=== PATIENT | female | born 1960 ===

== ENCOUNTER 2018-01-12 21:23 | Inpatient (IN) ==
--- NOTE | 2018-01-12 21:37 | ED ---
HPI General Stated Complaint: trauma alert/evac Time Seen by Provider: 01/12/18 21:34 Source: patient and EMS Mode of arrival: EMS Limitations: altered mental status (etoh on board) History of Present Illness HPI narrative: patient apparently came back home from meeting, intoxicated and fell...ground level fall. patient found confused with gcs 12, guarding airway, speaking to ems, following commands. Related Data Allergies Allergy/AdvReac Type Severity Reaction Status Date / Time No Allergy Information Allergy Unverified 01/12/18 21:24 Available Review of Systems ROS: all other systems reviewed are negative [facility] History History Provided By: Patient Exam Narrative Exam Narrative: GENERAL: female 59yo per patient report, no apparent distress....cleared off back board without any midline ttp SKIN: Warm and dry. HEAD: Atraumatic. Normocephalic. EYES: Pupils equal and round. No scleral icterus. No injection or drainage. ENT: No nasal bleeding or discharge. Mucous membranes pink and moist. no hemotympanum NECK: Trachea midline. No JVD. c collar in place CARDIOVASCULAR: Regular rate and rhythm. no rubs or gallops RESPIRATORY: No accessory muscle use. Clear to auscultation. Breath sounds equal bilaterally. GASTROINTESTINAL: Abdomen soft, non-tender, nondistended. No rebound or guarding MUSCULOSKELETAL: Extremities without clubbing, cyanosis, or edema. No obvious deformities. NEUROLOGICAL: Awake and alert, gcs 14/15, heavy etoh on breath. No obvious cranial nerve deficits. Motor grossly within normal limits. Five out of 5 muscle strength in the arms and legs. slurred speech. Critical Care Time Critical Care Time: Yes Total Critical Care Time: 30 Attestation: critical care time was [30] minutes. Time to perform other separately billable procedures was not included in the critical care time. My time did not include minutes spent treating any other patients simultaneously or on activities that did not directly contribute to the patient's treatment. The services I provided to this patient were to treat and/or prevent clinically significant deterioration I provided critical care services requiring my management, as noted below: Chart data review, documentation time, medication orders and management, vital sign assessments/reviewing monitor data, ordering and reviewing lab tests, ordering and interpreting/reviewing x-rays and diagnostic studies, care of the patient and discussion of the patient with the admitting physicians. Medical Decision Making MDM Narrative Medical decision making narrative: no leukocytosis, anemia or platelets coag wnl istat wnl intact pelvis ct head CONCLUSION:1. Bilateral sphenoid and left occipital nondisplaced skull base fractures.2. Bifrontal and left temporal parenchymal contusions. Small right frontal, right parietal and left temporal subdural hematomas. No mass effect or midline shift at this time..Electronically signed by: Payam Huerta MD 2017 9:[address] face: CONCLUSION:1. Minimally displaced fracture of the left side of the nasal arch. No otherfacial fracture.2. There is skull base fracturing involving the bilateral sphenoid bones and the left occiput.Electronically signed by: Payam Huerta MD 01/12/2018 9:[address] neck: CONCLUSION:1. Nondisplaced fracture left occipital bone.2. No acute fracture of the cervical spine. No significant canal stenosis. 8 mm nonspecific circumscribed lytic lesion at the C5 vertebral body.Electronically signed by: Ja Bell MD 01/12/2018 9:[address] chest: CONCLUSION:1. Negative for acute traumatic injury to the thorax.Electronically signed by: Ja Bell MD 01/12/2018 9:[address] abd/pelvis CONCLUSION:1. No acute visceral organ injury demonstrated.2. Nonspecific distention of the urinary bladder.3. Enlarged and fatty liver.4. Small hiatal hernia.Electronically signed by: Payam Huerta MD 01/12/2018 9:[address] cabrales and dr mitchell called at 2200 to make aware of admission. dr mitchell spoke at 2208 dr cabrales spoke at 2210 Medical Screen Exam Complete: Yes Emergency Medical Condition: Yes Lab Data Result diagrams: 01/12/18 21:27 01/12/18 21:27 Lab Results 01/12/18 01/12/18 01/12/18 Range/Units 21:27 21:27 21:27 WBC 8.2 (4.0-11.0) th/mm3 RBC 4.06 (4.00-5.30) mil/mm3 Hgb 13.5 (11.6-15.3) gm/dL POC Hgb (Calc) 14.6 (11.6-15.3) g/dL Hct 39.8 (35.0-46.0) % POC Hct 43.0 (35-46.0) % MCV 97.8 (80.0-100.0) fL MCH 33.3 (27.0-34.0) pg MCHC 34.1 (32.0-36.0) % RDW 12.8 (11.6-17.2) % Plt Count 279 (150-450) th/mm3 MPV 6.9 L (7.0-11.0) fL Neut % (Auto) 44.0 (16.0-70.0) % Lymph % (Auto) 39.4 (9.0-44.0) % White % (Auto) 12.9 H (0.0-8.0) % Eos % (Auto) 2.3 (0.0-4.0) % Baso % (Auto) 1.4 (0.0-2.0) % Neut # (Auto) 3.6 (1.8-7.7) th/mm3 Lymph # (Auto) 3.3 (1.0-4.8) th/mm3 White # (Auto) 1.1 H (0.0-0.9) th/mm3 Eos # (Auto) 0.2 (0.0-0.4) th/mm3 Baso # (Auto) 0.1 (0.0-0.2) th/mm3 WBC Differential . Differential Comment Auto diff final PT 10.1 (9.8-11.6) sec INR 1.0 Ratio APTT 25.5 (23.4-31.7) sec POC Sodium 140 (137-144) mmol/L POC Potassium 4.0 (3.6-5.0) mmol/L POC Chloride 99 L (102-111) mmol/L POC BUN 11 (5-21) mg/dL POC Creatinine 1.0 (0.6-1.3) mg/dL POC Glucose 107 (68-110) mg/dL Blood Type 01/12/18 Range/Units 21:27 WBC (4.0-11.0) th/mm3 RBC (4.00-5.30) mil/mm3 Hgb (11.6-15.3) gm/dL POC Hgb (Calc) (11.6-15.3) g/dL Hct (35.0-46.0) % POC Hct (35-46.0) % MCV (80.0-100.0) fL MCH (27.0-34.0) pg MCHC (32.0-36.0) % RDW (11.6-17.2) % Plt Count (150-450) th/mm3 MPV (7.0-11.0) fL Neut % (Auto) (16.0-70.0) % Lymph % (Auto) (9.0-44.0) % White % (Auto) (0.0-8.0) % Eos % (Auto) (0.0-4.0) % Baso % (Auto) (0.0-2.0) % Neut # (Auto) (1.8-7.7) th/mm3 Lymph # (Auto) (1.0-4.8) th/mm3 White # (Auto) (0.0-0.9) th/mm3 Eos # (Auto) (0.0-0.4) th/mm3 Baso # (Auto) (0.0-0.2) th/mm3 WBC Differential Differential Comment PT (9.8-11.6) sec INR Ratio APTT (23.4-31.7) sec POC Sodium (137-144) mmol/L POC Potassium (3.6-5.0) mmol/L POC Chloride (102-111) mmol/L POC BUN (5-21) mg/dL POC Creatinine (0.6-1.3) mg/dL POC Glucose (68-110) mg/dL Blood Type O Positive Imaging Data Radiologist's impression: Chest X-Ray 01/12/18 21:25 CONCLUSION: Consolidated left mid and lower lung which may represent a pulmonary contusion in the proper clinical setting. Possible minimally displaced fracture of the left eighth rib. CT of the chest is pending. Pelvis X-Ray 01/12/18 21:25 CONCLUSION: Intact pelvis. Abdomen/Pelvis CT 01/12/18 21:28 CONCLUSION: 1. No acute visceral organ injury demonstrated. 2. Nonspecific distention of the urinary bladder. 3. Enlarged and fatty liver. 4. Small hiatal hernia. Cervical Spine CT 01/12/18 21:28 CONCLUSION: 1. Nondisplaced fracture left occipital bone. 2. No acute fracture of the cervical spine. No significant canal stenosis. 8 mm nonspecific circumscribed lytic lesion at the C5 vertebral body. Chest CT 01/12/18 21:28 CONCLUSION: 1. Negative for acute traumatic injury to the thorax. Face CT 01/12/18 21:28 CONCLUSION: 1. Minimally displaced fracture of the left side of the nasal arch. No other facial fracture. 2. There is skull base fracturing involving the bilateral sphenoid bones and the left occiput. Head CT 01/12/18 21:28 CONCLUSION: 1. Bilateral sphenoid and left occipital nondisplaced skull base fractures. 2. Bifrontal and left temporal parenchymal contusions. Small right frontal, right parietal and left temporal subdural hematomas. No mass effect or midline shift at this time. . Discharge Plan Discharge Disposition Patient Disposition: ED Admit(ED Internal Use Only) Discharge Condition Condition: Fair Discharge Order Discharge Orders: ED Use Only Admit Order (Routine); Ordered 01/12/18 Ordered By: Carl Mazariegos Discharge Details Diagnosis: Closed skull fracture, Intracranial hemorrhage, Subdural hematoma, acute Physicians Team ED Provider: Carl Mazariegos Primary Care Provider: UNKNOWN, Attending Provider: Sahara Chang Discharge Interventions Interventions: ED Discharge Assessment Last Done: 01/12/18 22:17 Status ED Status: Admitted Patient
--- NOTE | 2018-01-12 21:40 | XR ---
EXAM DATE: 01/12/2018 9:38 PM EST AGE/SEX: 89 years / Female INDICATIONS: Trauma alert; fall. CLINICAL DATA: This is the patient's initial encounter. Patient reports that signs and symptoms have been present for 1 day and indicates a pain score of 0/10. MEDICAL/SURGICAL HISTORY: None. None. COMPARISON: No prior exams available for comparison. FINDINGS: Examination of the pelvis demonstrates no evidence of fracture or dislocation. Bony mineralization i s normal. There is no widening of the sacroiliac joints. No foreign body is identified. CONCLUSION: Intact pelvis. Electronically signed by: Payam Huerta MD 01/12/2018 9:39 PM EST
[2018-01-12 21:42] LABS: Baso # (Auto) 0.1 th/mm3 (0.0-0.2); Baso % (Auto) 1.4 % (0.0-2.0); Eos # (Auto) 0.2 th/mm3 (0.0-0.4); Eos % (Auto) 2.3 % (0.0-4.0); Hematocrit 39.8 % (35.0-46.0); Hemoglobin 13.5 gm/dL (11.6-15.3); Lymph # (Auto) 3.3 th/mm3 (1.0-4.8); Lymph % (Auto) 39.4 % (9.0-44.0); Mean Corpuscular HGB Conc 34.1 % (32.0-36.0); Mean Corpuscular Hemoglobin 33.3 pg (27.0-34.0); Mean Corpuscular Volume 97.8 fL (80.0-100.0); Mean Platelet Volume 6.9 fL (7.0-11.0); Mono # (Auto) 1.1 th/mm3 (0.0-0.9); Mono % (Auto) 12.9 % (0.0-8.0); Neut # (Auto) 3.6 th/mm3 (1.8-7.7); Platelet Count 279 th/mm3 (150-450); Red Blood Count 4.06 mil/mm3 (4.00-5.30); Red Cell Distribution Width 12.8 % (11.6-17.2); White Blood Count 8.2 th/mm3 (4.0-11.0)
--- NOTE | 2018-01-12 21:45 | XR ---
EXAM DATE: 01/12/2018 9:39 PM EST AGE/SEX: 89 years / Female INDICATIONS: Trauma alert; fall. CLINICAL DATA: This is the patient's initial encounter. Patient reports that signs and symptoms have been present for 1 day and indicates a pain score of 0/10. MEDICAL/SURGICAL HISTORY: None. None. COMPARISON: No prior exams available for comparison. FINDINGS: There is nonspecific parenchymal consolidation of the left mid and lower lung. Questionable minimally displaced fracture laterally of the left eighth rib. No perceptible pneumothorax. Cardiomediastinal contours are within normal limits. CONCLUSION: Consolidated left mid and lower lung which may represent a pulmonary contusion in the proper clinical setting. Possible minimally displaced fracture of the left eighth rib. CT of the chest is pending. Electronically signed by: Payam Huerta MD 01/12/2018 9:43 PM EST
--- NOTE | 2018-01-12 21:50 | CT ---
EXAM DATE: 01/12/2018 9:42 PM EST AGE/SEX: 89 years / Female INDICATIONS: Trauma alert, fall. CLINICAL DATA: This is the patient's initial encounter. Patient reports that signs and symptoms have been present for 1 day and indicates a pain score of Nonresponsive. MEDICAL/SURGICAL HISTORY: Non-responsive. Non-responsive. RADIATION DOSE: 56.35 CTDI (mGy) COMPARISON: No prior exams available for comparison. TECHNIQUE: CT of the head without contrast. Using automated exposure control and adjustment of the mA and/or kV according to patient size, radiation dose was kept as low as reasonably achievable to ob tain optimal diagnostic quality images. DICOM format image data is available electronically for revi ew and comparison. FINDINGS: There is nondisplaced fracturing of the skull base involving the bilateral sphenoid and left occiput. Acute parenchymal contusions involve the right and left frontal lobes and also the left temporal lobe . There is a right frontal subdural hematoma that measures approximately 4 mm in maximal thickness an d a left temporal subdural hematoma that measures approximately 3 mm in maximal thickness. A 3 mm max imal thickness right parietal subdural hematoma is present. Small amount of subdural blood is seen in between the leaves of the falx. No mass effect or midline shift at this time. No mass lesion demonstrated. No evidence of an acute is chemic event. There is blood in the bilateral sphenoid air cells. CONCLUSION: 1. Bilateral sphenoid and left occipital nondisplaced skull base fractures. 2. Bifrontal and left temporal parenchymal contusions. Small right frontal, right parietal and left temporal subdural hematomas. No mass effect or midline shift at this time. . Electronically signed by: Payam Huerta MD 01/12/2018 9:49 PM EST
--- NOTE | 2018-01-12 21:53 | CT ---
EXAM DATE: 01/12/2018 9:44 PM EST AGE/SEX: 89 years / Female INDICATIONS: Trauma alert, fall. CLINICAL DATA: This is the patient's initial encounter. Patient reports that signs and symptoms have been present for 1 day and indicates a pain score of Nonresponsive. MEDICAL/SURGICAL HISTORY: Non-responsive. Non-responsive. RADIATION DOSE: 18.00 CTDI (mGy) COMPARISON: No prior exams available for comparison. TECHNIQUE: Contiguous axial images were obtained using helical multirow detector technique. The vol umetric data was post-processed with multiplanar reconstruction in oblique axial, sagittal, and coron al planes. Using automated exposure control and adjustment of the mA and/or kV according to patient s ize, radiation dose was kept as low as reasonably achievable to obtain optimal diagnostic quality karen ges. DICOM format image data is available electronically for review and comparison. FINDINGS: There is a nondisplaced fracture of the left occipital bone. There is opacification of the sphenoid s inus probably from hemorrhage. No acute fracture within the cervical spine. Slight reversal of normal cervical lordosis. No canal or significant foraminal stenosis. Nonspecific 8 mm lytic lesion on the left side of the vertebral body at C5. CONCLUSION: 1. Nondisplaced fracture left occipital bone. 2. No acute fracture of the cervical spine. No significant canal stenosis. 8 mm nonspecific circumsc ribed lytic lesion at the C5 vertebral body. Electronically signed by: Ja Bell MD 01/12/2018 9:52 PM EST
[2018-01-12 21:55] LABS: Activated Partial Thrombo Time 25.5 sec (23.4-31.7); Prothrombin Time 10.1 sec (9.8-11.6)
--- NOTE | 2018-01-12 21:55 | CT ---
EXAM DATE: 01/12/2018 9:45 PM EST AGE/SEX: 89 years / Female INDICATIONS: Trauma alert, fall. CLINICAL DATA: This is the patient's initial encounter. Patient reports that signs and symptoms have been present for 1 day and indicates a pain score of Nonresponsive. MEDICAL/SURGICAL HISTORY: Non-responsive. Non-responsive. RADIATION DOSE: 21.96 CTDI (mGy) COMPARISON: No prior exams available for comparison. TECHNIQUE: Contiguous images in the axial and coronal planes were obtained using helical multirow de tector technique. Using automated exposure control and adjustment of the mA and/or kV according to p atient size, radiation dose was kept as low as reasonably achievable to obtain optimal diagnostic alexi lity images. DICOM format image data is available electronically for review and comparison. FINDINGS: Nondisplaced skull base fracture involves the bilateral sphenoid bones. There is associated small pne umocephaly, including around the bilateral internal carotid arteries. Small amount of blood is also s een in the left maxillary air cell. A nondisplaced fracture also involves the left occiput. There is a fracture of the left side of the nasal arch with mild rightward displacement, series 304 i mage 38. CONCLUSION: 1. Minimally displaced fracture of the left side of the nasal arch. No other facial fracture. 2. There is skull base fracturing involving the bilateral sphenoid bones and the left occiput. Electronically signed by: Payam Huerta MD 01/12/2018 9:54 PM EST
--- NOTE | 2018-01-12 21:57 | CT ---
EXAM DATE: 01/12/2018 9:50 PM EST AGE/SEX: 89 years / Female INDICATIONS: Trauma, fall. CLINICAL DATA: This is the patient's initial encounter. Patient reports that signs and symptoms have been present for 1 day and indicates a pain score of Nonresponsive. MEDICAL/SURGICAL HISTORY: Non-responsive. Non-responsive. RADIATION DOSE: 6.30 CTDI (mGy) ; Combined studies COMPARISON: No prior exams available for comparison. TECHNIQUE: Multiple contiguous axial images were obtained through the chest during bolus infusion of 100 ml Omnipaque 350 (iohexol) nonionic water-soluble contrast as a cumulative dose for multiple ex ams. Images were obtained in suspended respiration using multiple row detector helical technique. Using automated exposure control and adjustment of the mA and/or kV according to patient size, radiat ion dose was kept as low as reasonably achievable to obtain optimal diagnostic quality images. DICOM format image data is available electronically for review and comparison. FINDINGS: There is no pleural or pericardial effusion. No pneumothorax. There is no mediastinal hematoma. No ad enopathy. Bilateral breast augmentation noted. No acute bony abnormalities identified. See abdomen CT for findings below the diaphragms. CONCLUSION: 1. Negative for acute traumatic injury to the thorax. Electronically signed by: Ja Bell MD 01/12/2018 9:55 PM EST
--- NOTE | 2018-01-12 21:58 | CT ---
EXAM DATE: 01/12/2018 9:51 PM EST AGE/SEX: 89 years / Female INDICATIONS: Trauma, fall. CLINICAL DATA: This is the patient's initial encounter. Patient reports that signs and symptoms have been present for 1 day and indicates a pain score of Nonresponsive. MEDICAL/SURGICAL HISTORY: Non-responsive. Non-responsive. ORAL CONTRAST: No oral contrast ingested. RADIATION DOSE: 6.30 CTDI (mGy) ; Combined studies COMPARISON: No prior exams available for comparison. TECHNIQUE: Multiple contiguous axial images were obtained through the abdomen and pelvis following b olus infusion of 100 ml Omnipaque 350 (iohexol) nonionic water-soluble contrast as a cumulative dos e for multiple exams. No oral contrast ingested. Using automated exposure control and adjustment of the mA and/or kV according to patient size, radiation dose was kept as low as reasonably achievable t o obtain optimal diagnostic quality images. DICOM format image data is available electronically for review and comparison. FINDINGS: Lower Lungs: The visualized lower lungs are clear. Liver: The liver has a homogeneous fatty density without space-occupying lesion. 23.5 cm craniocaudal There is no dilation of the biliary tree. Spleen: Homogeneous density without enlargement. Pancreas: Unremarkable without mass or calcification. Kidneys: Normal in size and shape. No evidence of mass or hydronephrosis. Adrenal Glands: Unremarkable. Aorta: The aorta and proximal iliac vessels are grossly unremarkable without aneurysmal dilation. Bowel/Mesentery: The bowel loops are grossly unremarkable. The cecum and sigmoid colon have a normal configuration. There is a small hiatal hernia. Abdominal Wall: Intact. Retroperitoneum: No evidence of adenopathy in the retrocrural, para-aortic, or deep pelvic regions. Bladder: Distended. No focal abnormality. Reproductive Organs: No abnormal masses or calcifications seen. Inguinal: The inguinal region is unremarkable without evidence of adenopathy. Bony Structures: No acute abnormality seen of the visualized osseous structures. Post Contrast: No abnormal areas of enhancement seen. CONCLUSION: 1. No acute visceral organ injury demonstrated. 2. Nonspecific distention of the urinary bladder. 3. Enlarged and fatty liver. 4. Small hiatal hernia. Electronically signed by: Payam Huerta MD 01/12/2018 9:56 PM EST
[2018-01-12 22:08] LABS: Carbon Dioxide 28.5 meq/L (21.0-32.0); Potassium 3.9 meq/L (3.5-5.1)
--- NOTE | 2018-01-12 22:15 | P.CONNS ---
History of Present Illness Service: neurosurgery Consult date: 01/12/18 Requesting Physician: Carl Mazariegos Reason for Consult: Trauma alert Primary Care Provider: UNKNOWN Chief Complaint: trama, headaches History of Present Illness: This is an adult female brought to [facility] as a trauma alert as Brooke Oliva with a severe head injury. Apparently she came back home from Alcoholics Anonymous meeting when she became intoxicated and fell down to the ground from the standing position. Positive LOC. No seizure activity. No tongue bitting. No incontinence of stool or urine The patient was found confused on the ground, with a [place] scale 11-12, slurring speech, but following commands. She was transferred to our institution as priority 2 trauma alert on the spinal board with C-collar in place. On arrival, the patient was awake, alert and oriented, clearly drunk, intoxicated. Neurosurgery consultation was requested Review of Systems All other systems reviewed negative except as stated in HPI PMFSH - History History Provided By: Patient - Medical History Medical History: Medical History (Last Reviewed 01/22/18 @ 09:45 by Nasim Fu MD) History of MRSA infection Onset Date: ~01/12/18 - Family History Family History: Family History (Last Reviewed 01/22/18 @ 09:45 by Nasim Fu MD) Other Alzheimer disease Medications and Allergies Allergies Allergy/AdvReac Type Severity Reaction Status Date / Time No Known Allergies Allergy Verified 01/12/18 22:46 Home Medications Medication Instructions Recorded Confirmed Type Effexor XR DAILY 01/13/18 History clonazepam 01/13/18 History escitalopram oxalate BID 01/13/18 History Exam Narrative: The patient is alert, awake and oriented to time, place and person. Speech is fluent. Cranial nerve examination demonstrates the pupils to be equal, round, and reactive to light. Extra-ocular movements are intact with normal convergence. Facial motor and sensory function are normal and symmetrical. Gross hearing is intact, bilaterally, to finger rub. The uvula is midline and elevates symmetrically with the soft palate. Sternocleidomastoid and deltoid muscles have normal and symmetrical strength. Other cranial nerves are intact. Neck is soft and supple. Cervical spine has a full range of motion in anterior flexion, extension, lateral bending, and rotation without pain. There is no tenderness to palpation to the spinous processes or paraspinal muscles. Muscle testing reveals normal bulk and tone overall without rigidity, spasticity , fasciculations, or atrophy. Muscle strength is 5/5 in all muscle groups of both upper extremities including deltoid, biceps, triceps, brachioradialis, wrist extension and tile burner. In the lower extremities, strength is 5/5 in both iliopsoas, quadriceps, hamstrings, plantar flexion, dorsiflexion, and extensor hallucis longus. Sensory examination is intact to light touch and sharp/dull discrimination in both the upper and lower extremities, symmetrically. Deep tendon reflexes are 2+ and symmetrical in the biceps, triceps, and brachioradialis, bilaterally, in the upper extremities. In the lower extremities , the patellar and Achilles are 2+, bilaterally. There is a bilateral plantar flexion response. Hoffmanns sign is negative. There is no clonus or other abnormal reflexes noted. Cerebellar examination is intact to [id number] test, rapid rhythmic alternating motion. No dysmetria, dysdiadochokinesia, truncal ataxia, or tremor noted. Lungs: clear Heart: Regular rhythm and rate Skin: warm and dry Results - Laboratory Findings CBC and BMP: 01/19/18 02:39 01/22/18 05:50 Abnormal lab findings: Abnormal Labs 01/12/18 01/12/18 21:27 21:27 MPV 6.9 L [place] % (Auto) 12.9 H [place] # (Auto) 1.1 H POC Chloride 99 L Assessment and Plan - Plan I have reviewed the clinical and radiological findings Chest X-Ray 01/12/18 21:25 CONCLUSION: Consolidated left mid and lower lung which may represent a pulmonary contusion in the proper clinical setting. Possible minimally displaced fracture of the left eighth rib. CT of the chest is pending. Pelvis X-Ray 01/12/18 21:25 CONCLUSION: Intact pelvis. Abdomen/Pelvis CT 01/12/18 21:28 CONCLUSION: 1. No acute visceral organ injury demonstrated. 2. Nonspecific distention of the urinary bladder. 3. Enlarged and fatty liver. 4. Small hiatal hernia. Cervical Spine CT 01/12/18 21:28 CONCLUSION: 1. Nondisplaced fracture left occipital bone. 2. No acute fracture of the cervical spine. No significant canal stenosis. 8 mm nonspecific circumscribed lytic lesion at the C5 vertebral body. Chest CT 01/12/18 21:28 CONCLUSION: 1. Negative for acute traumatic injury to the thorax. Face CT 01/12/18 21:28 CONCLUSION: 1. Minimally displaced fracture of the left side of the nasal arch. No other facial fracture. 2. There is skull base fracturing involving the bilateral sphenoid bones and the left occiput. Head CT 01/12/18 21:28 CONCLUSION: 1. Bilateral sphenoid and left occipital nondisplaced skull base fractures. 2. Bifrontal and left temporal parenchymal contusions. Small right frontal, right parietal and left temporal subdural hematomas. No mass effect or midline shift at this time. . Neuro: neuro checks in a serial fashion. She is at risk for deterioration. Folow up CT in AM Cerebral concusion. I have educated the patient on the signs and symptoms of a post concussive head disorder including continued daily headaches, mild nausea, possible lightheadedness, short term memory deficit, shortened attention span and even episodes of loss of energy. I also advised the patient on the importance of avoiding another head injury as this could result in further neurological deficit, possible paralysis or even . The patient is aware of the consequences of a further traumatic brain injury. Pulmonary: aggressive pulmonary toilette, nasotracheal suction, and breathing treatments with nebulizers. ETOH abuse. She is at risk for withdraw. On protocol Benzodiazepines. Thiamine, Folic acid, MVI Daily PT and OT Renal: monitor closely urine output, BUN and creatinine Endocrine: Monitor serial Acu checks and SSI as needed in detail ID continue to monitor for signs of infection Protonix for stress ulcer prophylaxis Harsh hose and SCD's for DVT prophylaxis Further recommendations will be provided depending on the patient's clinical evaluation and follow up studies. Discussed with Dr Luna
[2018-01-13 00:01] LABS: Amphetamine Screen,Urine Neg (Neg); Barbiturate Screen,Urine Neg (Neg); Cannabinoid Screen,Urine Neg (Neg); Cocaine Screen,Urine Neg (Neg)
[2018-01-13 00:03] LABS: Opiate Screen,Urine Neg (Neg)
[2018-01-13] MEDS: Sod Chloride 0.9% Inj 1,000 ML IV.CONT SCH ×6 (00:42→23:56)
[2018-01-13] MEDS ORDERED: Acetaminophen 325 MG Tablet PO PRN (06:10)
--- NOTE | 2018-01-13 07:12 | MH ---
cc: Sahara Chang MD DATE OF ADMISSION: 01/12/2018 ADMITTING PHYSICIAN: Dr. Sahara Chang, trauma surgery. DIAGNOSIS: Traumatic brain injury. HISTORY OF PRESENT ILLNESS: This female is coming back from Alcoholics Anonymous meeting when she fell intoxicated from the standing position. The patient was found confused with about a [place] scale 11-12, slurring speech and following commands. She was transferred to our institution as priority 2 trauma alert on the spinal board with C-collar in place. On arrival, the patient is awake, alert and oriented, clearly drunk. PAST MEDICAL HISTORY: Alcoholism and tobacco abuse. I do not have any other history. PHYSICAL EXAMINATION: GENERAL: Reveals a 59-year-old female. HEENT: Normocephalic. Trauma to the head consistent with some bruising of the face. Pupils equal, reactive. Extraocular muscles intact. No hemotympanum developing left tse sign already around the mastoid. No raccoon's eyes. Some bruising over the face may be from some other injury, older one. NECK: Bilateral carotid pulses. No bruits. CHEST: Clear bilateral breath sounds. No signs of trauma to the chest. HEART: Regular rhythm. Hemodynamically, the patient has tachycardia. ABDOMEN: Soft. No rebound, no guarding, no mass. No signs of trauma to the abdomen. EXTREMITIES: Normal bilateral femoral, popliteal, dorsalis pedis and posterior tibial pulses, bilateral brachial and radial pulses. NEUROLOGIC: The patient is awake, alert. [place] coma scale at this point is 15. She reeks of alcohol. Motor bilateral equal. Deep tendon reflexes normal. No pathologic reflexes. Speech is still somewhat slurred. IMPRESSION: The patient was worked up according to trauma principles, underwent full diagnostic clinical workup. Initial injuries detected severe brain injury consisting of bifrontal and left temporal contusions and bifrontal subdural hematomas, basal skull fracture extending from bilateral sphenoid to left occipital area and nasal fracture. The patient will be admitted to ICU for observation. Appropriate services consulted. MD DARCIE Garay/aaron , 05:25 AM , 05:32 AM
--- NOTE | 2018-01-13 08:18 | P.NPEVAL ---
Patient History - Record/History Review Reason for Referral: The patient is a 89 year old presumed right handed woman status post traumatic brain injury secondary to a fall on 01/12/2018. The patient was apparently coming home from an AA meeting, intoxicated, and fell . . . ground level fall, and was confused at the scene with a GCS of 12. Head CT showed bifrontal and left temporal parenchymal contusions and small right frontal and parietal na dleft temporal SDH. Her ETOH level was 323. She is referred for baseline neurobehavioral status examination per trauma protocol to assess cognitive, behavioral and emotional aspects of the injury and to provide treatment recommendations. [facility] - History History Provided By: Significant Other - Medical History Medical History: Medical History (Last Reviewed 01/13/18 @ 09:39 by Ayaka Sánchez) History of MRSA infection Onset Date: ~01/12/18 - Tobacco History Second Hand Smoke Exposure: No Smoking Status: Never smoker - Alcohol History How Often Do You Have a Drink Containing Alcohol: 4 or more times a week - Substance Use History Substance History: No History of Abuse - Immunization History Tetanus Immunization: Unable to Assess Hx Influenza Vaccine This Season: No Medications Active Medications Acetaminophen (Tylenol) 650 mg PO Q6H PRN PRN Reason: PAIN 1-10 AND/OR FEVER >101F Bacitracin (Baciguent Oint) 1 applicatio TOPICAL BID DONTE Chlorhexidine Gluconate (Chlorhexidine 2% Cloth) 3 pack TOPICAL DAILY@0400 DONTE Stop: 01/19/18 03:59 Chlorhexidine Gluconate (Chlorhexidine 2% Cloth) 3 pack TOPICAL DAILY@0400 PRN PRN Reason: Extra cloth needed Stop: 01/19/18 03:59 Enalaprilat (Vasotec Inj) 1.25 mg IV.PUSH Q8H PRN PRN Reason: Blood pressure 180/95 Haloperidol Lactate (Haldol Inj) 4 mg IV.PUSH Q4H PRN PRN Reason: AGITATION Sodium Chloride (Ns Inj) 1,000 mls @ 100 mls/hr IV.CONT .Q10H [facility] Last Admin: 01/13/18 00:42 Dose: 100 mls/hr Levetiracetam 500 mg/ Sodium (Chloride) 105 mls @ 400 mls/hr IV.SIG Q12H [facility] Last Admin: 01/13/18 06:35 Dose: 400 mls/hr Sodium Chloride (Ns Inj) 1,000 mls @ 100 mls/hr IV.CONT .Q10H DONTE Last Admin: 01/13/18 06:39 Dose: Not Given Multivitamins 10 ml/ Thiamine HCl 100 mg/ Folic Acid 1 mg/Sodium Chloride 511.2 mls @ 125 mls/hr IV.SIG Q24H DONTE Stop: 01/15/18 12:06 Lactulose (Lactulose Liq) 30 ml PO DAILY PRN PRN Reason: CONSTIPATION Ondansetron HCl (Zofran Inj) 4 mg IV.PUSH Q6H PRN PRN Reason: FOR NAUSEA AND VOMITING Last Admin: 01/13/18 05:59 Dose: 4 mg Pantoprazole Sodium (Protonix Inj) 40 mg IV.PUSH DAILY DONTE Senna/Docusate Sodium (Meri-Colace) 1 tab PO BID DONTE Sodium Chloride (Ns Flush) 2 ml IV.FLUSH UNSCH PRN PRN Reason: FLUSH AFTER USING IV ACCESS Mental Status Assessment - Mental Status Orientation: oriented to: Self, Place, Time, Situation Mental Status: Variable: Thought processing, Language/interactions, Attention, Learning/memory, Problem-solving Absent: Hallucinations, Delusions Adjustment/Coping Assessment - Observation In terms of emotional functioning, the patient demonstrated challenges. This patient demonstrated no signs of agitation, impulsivity or disinhibition, nor was there remarkable evidence of a formal thought disorder or psychosis. There was no evidence of depression or anxiety. Thought content was free from suicidal, homicidal or paranoid ideation, and thought processes were logical but bradyphrenic. The patients mood was dysthymic, and her affect was stable and appropriate. The patient appears to possess improving insight and awareness into their situation and within the limits of this brief evaluation, improving judgment. - Goals/Team Members LTG Status: Deferred STG Status: Deferred Team Members: Neuropsychologist Behavior - Observation Behaviorally, the patient demonstrated no signs of agitation, impulsivity or disinhibition. There was no remarkable evidence of a formal thought disorder or psychosis. - Goals LTG Status: Deferred STG Status: Deferred - Team Members Team Members: Neuropsychologist Diagnosis/Discharge Plan - Diagnosis (1) Major neurocognitive disorder as late effect of traumatic brain injury with behavioral disturbance Status: Acute (2) Alcohol dependence in controlled environment Status: Acute Impression: Unknown age woman s/p TBI 2T fall on 01/12/2018, and complicated by alcohol dependence, in controlled environment. [facility] Level: Level Maximizing Acute Care Outcome: It is recommended that the patient be monitored for emergent behavioral impulsivity as the medical condition evolves. This patients neuropathological challenges may limit rehabilitation potential going forward, and these challenges will require specialized therapeutic skills to maximize outcome. At this point in the recovery process, the patient does have cognitive capacity as the patient is able to understand a situation and its likely consequences, and she is able to manipulate information rationally. Cognitive capacity will be assessed throughout the recovery process. - Discharge Planning Anticipated Problems: Ongoing areas of concern will include behavioral impulsivity, lack of insight and judgment, which is expected to improve with time and treatment. Treatment Plan: This clinician will continue to follow with you throughout the course of this patients critical care treatment, and I will be available to meet with the patients family/support system to facilitate their understanding and the ongoing care of their family member. The goals of neuropsychological intervention shall be both educational and supportive to the family/support system as is deemed clinically appropriate. Thank you for the opportunity to assist in this patients care. Jose Araujo, Ph.D., ABPP Board Certified in Clinical Neuropsychology [place] [employer] [place] Licensed Psychologist #[id number]
[2018-01-13 08:38] LABS: Baso % (Auto) 0.3 % (0.0-2.0); Hematocrit 36.3 % (35.0-46.0); Hemoglobin 12.4 gm/dL (11.6-15.3); Lymph # (Auto) 1.2 th/mm3 (1.0-4.8); Lymph % (Auto) 9.5 % (9.0-44.0); Mean Corpuscular Hemoglobin 33.2 pg (27.0-34.0); Mean Corpuscular Volume 97.5 fL (80.0-100.0); Mean Platelet Volume 6.9 fL (7.0-11.0); Mono # (Auto) 0.9 th/mm3 (0.0-0.9); Mono % (Auto) 7.7 % (0.0-8.0); Neut % (Auto) 82.5 % (16.0-70.0); Platelet Count 262 th/mm3 (150-450); Red Blood Count 3.72 mil/mm3 (4.00-5.30); Red Cell Distribution Width 12.5 % (11.6-17.2); White Blood Count 12.2 th/mm3 (4.0-11.0)
[2018-01-13] MEDS: Multivitamin Inj 10 ML, Thiamine Inj 100 MG, Folic Acid Inj 1 MG in Sodium Chlor 0.9% I... IV.SIG SCH (08:44)
[2018-01-13] MEDS: Senna/Docusate Sodium 8.6/50 MG Tablet PO SCH ×2 (08:45→20:13)
[2018-01-13] MEDS: Pantoprazole Inj 40 MG Vial IV.PUSH SCH (08:45)
[2018-01-13 09:03] LABS: Anion Gap 10 meq/L (5-15); Blood Urea Nitrogen 10 mg/dL (7-18); Carbon Dioxide 25.2 meq/L (21.0-32.0); Chloride 98 meq/L (98-107); Glomerular Filtration Rate Greater Than 89 mL/min (>89); Glucose,Random 107 mg/dL (74-106); Potassium 3.7 meq/L (3.5-5.1); Sodium 133 meq/L (136-145)
--- NOTE | 2018-01-13 10:48 | MB ---
cc: Salazar Oliveira DDS DATE: 01/13/2018 AKA: [id number] REASON FOR CONSULTATION: Asked to evaluate a lady who came in as a fall. I guess she was inebriated, leaving a meeting, sustaining a blow to the face, which they diagnosed as a left nasal fracture per CT scan. On evaluation, the CT it is completely nondisplaced, appears to possibly be even an old fracture of her left nasal area, which is nondisplaced, requires no surgical intervention and no followup. The rest of her facial CT is normal. Her orbital bones are stable. Maxilla and mandible are both stable, does not require any surgical intervention nor followup. MAYDA Cordoba/an , 09:03 AM , 09:08 AM
[2018-01-13] MEDS: Sodium Chloride 1 GM Tablet PO SCH ×2 (11:12→17:04)
[2018-01-13] MEDS: levETIRAcetam 500 MG Tablet PO SCH ×2 (11:12→20:13)
[2018-01-13] MEDS: Methocarbamol 500 MG Tablet PO SCH ×3 (11:12→22:03)
--- NOTE | 2018-01-13 12:44 | CT ---
EXAM DATE: 01/13/2018 12:22 PM EST AGE/SEX: 57 years / Female INDICATIONS: Head injury. Fall yesterday. CLINICAL DATA: This is the patient's initial encounter. Patient reports that signs and symptoms have been present for 1 day and indicates a pain score of 4/10. MEDICAL/SURGICAL HISTORY: None. None. RADIATION DOSE: 66.34 CTDI (mGy) COMPARISON: [facility] [place], CT HEAD W/O CONTRAST, 01/12/2018. . TECHNIQUE: CT of the head without contrast. Using automated exposure control and adjustment of the mA and/or kV according to patient size, radiation dose was kept as low as reasonably achievable to ob tain optimal diagnostic quality images. DICOM format image data is available electronically for revi ew and comparison. FINDINGS: There is an acute right hemispheric subdural hematoma that has increased in size from yesterday's exa mination. In the right frontal region of previously measured a maximal thickness of 4 mm compared to 9 mm currently. Additionally, it now extends over the temporal lobe in the right middle cranial fossa and extends more posteriorly over the right frontal lobe and parietal region. Some of the subdural b lood products also extend into the anterior interhemispheric fissure. Some of the blood products in t he right frontal lobe may be intra-axial and represent a hemorrhagic contusion. The left frontal lobe convexity hemorrhagic contusion has increased in size, currently measuring 9 mm. The increased right -sided blood products result in new 2 mm of [id number] midline shift. Ventricles are normal in siz e. There are stable trace subarachnoid blood products in the left middle cranial fossa. There is a stable nondisplaced left occipital bone fracture and there are stable blood products withi n the sphenoid sinus and there is a small air-fluid level in the left maxillary sinus. CONCLUSION: 1. Significant increased volume of the right subdural hematoma now resulting in mass effect with new 2 mm of [id number] midline shift. This finding was telephoned to the patient's nurse. 2. Increased size of the bifrontal hemorrhagic contusions. 3. Nondisplaced left occipital bone fracture is stable. . Electronically signed by: Payam Owen MD 01/13/2018 12:42 PM EST
--- NOTE | 2018-01-13 13:42 | MR ---
EXAM DATE: 01/13/2018 1:06 PM EST AGE/SEX: 57 years / Female INDICATIONS: Trauma. CLINICAL DATA: This is the patient's initial encounter. Patient reports that signs and symptoms have been present for 2 days and indicates a pain score of 5/10. MEDICAL/SURGICAL HISTORY: None. . Breast implants. COMPARISON: [facility] [place] CERVICAL SPINE W/O CONTRAST, 01/12/2018. . TECHNIQUE: Multiplanar, multisequence MRI examination of the cervical spine was performed without co ntrast. FINDINGS: Vertebrae: Bone marrow signal is within normal limits. No acute abnormality. There is a T1 hyperint ense fat-containing lesion in the C5 vertebral body measuring approximately 5 mm, characteristic of a hemangioma. Alignment: No anterolisthesis or retrolisthesis. There is a mild cervical kyphosis centered at the C 4-C5 level. Cord: Normal signal. Post Fossa: The cerebellar tonsils are normal in position. The craniocervical junction and C1-C2 level demonstrate no acute abnormality. C2-C3: No disc herniation, canal stenosis, or neural foraminal stenosis. There is mild right facet a rthrosis. C3-C4: There is a small central disc protrusion which slightly abuts the anterior spinal cord. Howev er, no spinal canal stenosis or neural foraminal narrowing is present. C4-C5: Decreased disc height with endplate osteophytes anteriorly and diffuse posterior disc osteoph yte complex which abuts the anterior spinal cord. There is no spinal canal stenosis. Small bilateral uncovertebral osteophytes are present minimally narrowing the neural foramina bilaterally. C5-C6: No disc herniation, canal stenosis, or neural foraminal stenosis. C6-C7: No disc herniation, canal stenosis, or neural foraminal stenosis. C7-T1: No disc herniation, canal stenosis, or neural foraminal stenosis. Other: There is opacification of the sphenoid sinus. CONCLUSION: 1. No acute cervical spine abnormality is identified. 2. Mild cervical kyphosis secondary to the degenerative disc disease at C4-C5. At this level there i s posterior disc osteophyte complex and bilateral uncovertebral osteophyte mildly narrowing the neura l foramina bilaterally. Electronically signed by: Payam Owen MD 01/13/2018 1:40 PM EST
--- NOTE | 2018-01-13 13:46 | P.PNCC ---
Subjective Brief History: 57-year-old woman with history of chronic EtOH abuse status post fall resulted in a TBI with subdural subarachnoidal bleeding 24 Hour Review/Hospital Course: 01/13 GCS is 15 patient complains of headache She has also midline neck tenderness and will obtain an MRI Repeat CT scan of the head shows increasing size of her subdural hematoma, I discussed this with the neurosurgeon for now will patient remain on observation n.p.o. status-besides medications He is on Keppra, she is hemodynamically normal ,OMFS surgeons input appreciated patient is nonsurgical Objective Vital Signs / I&O: Vital Signs 01/12/18 22:16 01/12/18 22:21 01/12/18 22:30 Temperature 98.3 F Pulse Rate 77 Respiratory Rate 23 Blood Pressure 158/99 H 150/89 H Pulse Oximetry 64 L 94 L 94 L 01/12/18 23:00 01/12/18 23:11 01/13/18 00:00 Temperature 98.6 F Pulse Rate 81 76 82 Respiratory Rate 24 24 22 Blood Pressure 112/71 Pulse Oximetry 94 L 95 98 01/13/18 00:09 01/13/18 01:00 01/13/18 01:09 Temperature Pulse Rate 78 83 82 Respiratory Rate 22 23 23 Blood Pressure 133/77 117/71 Pulse Oximetry 98 98 98 01/13/18 02:00 01/13/18 02:09 01/13/18 03:00 Temperature Pulse Rate 95 H 89 78 Respiratory Rate 27 H 22 21 Blood Pressure 113/75 Pulse Oximetry 90 L 95 97 01/13/18 03:09 01/13/18 04:00 01/13/18 04:09 Temperature 98.9 F Pulse Rate 80 89 95 H Respiratory Rate 21 23 29 H Blood Pressure 119/71 147/89 H Pulse Oximetry 97 98 97 01/13/18 05:00 01/13/18 05:09 01/13/18 06:00 Temperature Pulse Rate 82 82 87 Respiratory Rate 23 24 20 Blood Pressure 132/85 Pulse Oximetry 97 96 94 L 01/13/18 06:09 01/13/18 08:00 01/13/18 10:16 Temperature 100.6 F H Pulse Rate 86 89 Respiratory Rate 21 15 16 Blood Pressure 131/82 131/82 Pulse Oximetry 95 98 Intake & Output 01/12/18 01/13/18 01/13/18 18:59 06:59 18:59 Intake Total 955 / 955 Output Total 1999 450 / 450 Balance -1999 505 / 505 Weight 62.3 kg Intake: IV 955 / 955 NS Inj 1,000 ML @ 100 mls/hr IV 850 / 850 .CONT .Q10H [facility] Rx#:[id number] Keppra Inj 500 MG In NS Inj 100 105 / 105 ML @ 400 mls/hr IV.SIG Q12H [facility] Rx#:[id number] Output: Urine Amount (Catheter) 1999 450 / 450 Indwelling Urethral Catheter 1999 450 / 450 Other: Weight On Admission 62.3 kg Result Diagrams: 01/13/18 07:54 01/13/18 07:54 Imaging: Impressions Chest X-Ray 01/12/18 21:25 CONCLUSION: Consolidated left mid and lower lung which may represent a pulmonary contusion in the proper clinical setting. Possible minimally displaced fracture of the left eighth rib. CT of the chest is pending. Pelvis X-Ray 01/12/18 21:25 CONCLUSION: Intact pelvis. Abdomen/Pelvis CT 01/12/18 21:28 CONCLUSION: 1. No acute visceral organ injury demonstrated. 2. Nonspecific distention of the urinary bladder. 3. Enlarged and fatty liver. 4. Small hiatal hernia. Cervical Spine CT 01/12/18 21:28 CONCLUSION: 1. Nondisplaced fracture left occipital bone. 2. No acute fracture of the cervical spine. No significant canal stenosis. 8 mm nonspecific circumscribed lytic lesion at the C5 vertebral body. Chest CT 01/12/18 21:28 CONCLUSION: 1. Negative for acute traumatic injury to the thorax. Face CT 01/12/18 21:28 CONCLUSION: 1. Minimally displaced fracture of the left side of the nasal arch. No other facial fracture. 2. There is skull base fracturing involving the bilateral sphenoid bones and the left occiput. Head CT 01/12/18 21:28 CONCLUSION: 1. Bilateral sphenoid and left occipital nondisplaced skull base fractures. 2. Bifrontal and left temporal parenchymal contusions. Small right frontal, right parietal and left temporal subdural hematomas. No mass effect or midline shift at this time. . Head CT 01/13/18 00:00 CONCLUSION: 1. Significant increased volume of the right subdural hematoma now resulting in mass effect with new 2 mm of [id number] midline shift. This finding was telephoned to the patient's nurse. 2. Increased size of the bifrontal hemorrhagic contusions. 3. Nondisplaced left occipital bone fracture is stable. . 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
--- NOTE | 2018-01-13 18:29 | P.PNNS ---
Subjective Interval history: 01/13 GCS is 15 patient complains of headache She has also midline neck tenderness and will obtain an MRI Repeat CT scan of the head shows increasing size of her subdural hematoma, I discussed this with the neurosurgeon for now will patient remain on observation n.p.o. status-besides medications. She is on Keppra, she is hemodynamically normal ,OMFS surgeons input appreciated Physical Exam Vital signs: Vital Signs 01/12/18 22:16 01/12/18 22:21 01/12/18 22:30 Temperature 98.3 F Pulse Rate 77 Respiratory Rate 23 Blood Pressure 158/99 H 150/89 H Pulse Oximetry 64 L 94 L 94 L 01/12/18 23:00 01/12/18 23:11 01/13/18 00:00 Temperature 98.6 F Pulse Rate 81 76 82 Respiratory Rate 24 24 22 Blood Pressure 112/71 Pulse Oximetry 94 L 95 98 01/13/18 00:09 01/13/18 01:00 01/13/18 01:09 Temperature Pulse Rate 78 83 82 Respiratory Rate 22 23 23 Blood Pressure 133/77 117/71 Pulse Oximetry 98 98 98 01/13/18 02:00 01/13/18 02:09 01/13/18 03:00 Temperature Pulse Rate 95 H 89 78 Respiratory Rate 27 H 22 21 Blood Pressure 113/75 Pulse Oximetry 90 L 95 97 01/13/18 03:09 01/13/18 04:00 01/13/18 04:09 Temperature 98.9 F Pulse Rate 80 89 95 H Respiratory Rate 21 23 29 H Blood Pressure 119/71 147/89 H Pulse Oximetry 97 98 97 01/13/18 05:00 01/13/18 05:09 01/13/18 06:00 Temperature Pulse Rate 82 82 87 Respiratory Rate 23 24 20 Blood Pressure 132/85 Pulse Oximetry 97 96 94 L 01/13/18 06:09 01/13/18 07:00 01/13/18 07:09 Temperature Pulse Rate 86 80 80 Respiratory Rate 21 18 19 Blood Pressure 131/82 146/89 H Pulse Oximetry 95 97 98 01/13/18 08:00 01/13/18 08:09 01/13/18 09:00 Temperature 98.6 F Pulse Rate 86 84 90 Respiratory Rate 20 18 26 H Blood Pressure 145/87 H 145/87 H Pulse Oximetry 95 96 95 01/13/18 09:09 01/13/18 10:00 01/13/18 10:09 Temperature Pulse Rate 83 84 82 Respiratory Rate 22 20 20 Blood Pressure 153/95 H 156/86 H Pulse Oximetry 97 98 98 01/13/18 10:16 01/13/18 11:11 01/13/18 11:47 Temperature Pulse Rate 79 Respiratory Rate 16 15 Blood Pressure 133/85 Pulse Oximetry 96 98 01/13/18 12:07 01/13/18 12:09 01/13/18 13:11 Temperature 98.5 F Pulse Rate 81 81 Respiratory Rate 14 26 H Blood Pressure 139/84 Pulse Oximetry 93 L 94 L 95 01/13/18 14:00 01/13/18 14:35 01/13/18 14:46 Temperature Pulse Rate 78 78 Respiratory Rate 20 22 Blood Pressure 156/101 H Pulse Oximetry 96 93 L 01/13/18 14:47 01/13/18 15:00 01/13/18 15:01 Temperature Pulse Rate 79 81 82 Respiratory Rate 23 20 22 Blood Pressure 161/93 H 145/92 H Pulse Oximetry 96 98 97 01/13/18 15:14 01/13/18 15:44 01/13/18 16:00 Temperature 98.4 F Pulse Rate 80 81 81 Respiratory Rate 25 H 19 22 Blood Pressure 142/94 H 140/89 140/89 Pulse Oximetry 97 96 97 01/13/18 16:14 01/13/18 16:44 01/13/18 17:00 Temperature Pulse Rate 76 80 80 Respiratory Rate 22 24 23 Blood Pressure 131/88 160/74 H Pulse Oximetry 90 L 97 97 01/13/18 17:14 01/13/18 17:44 01/13/18 18:00 Temperature Pulse Rate 88 90 78 Respiratory Rate 24 23 22 Blood Pressure 167/103 H 165/95 H Pulse Oximetry 97 97 99 Intake & Output 01/12/18 01/13/18 01/13/18 18:59 06:59 18:59 Intake Total 1566.2 / 1566.2 Output Total 1999 450 / 450 Balance -1999 1116.2 / 1116.2 Weight 62.3 kg Intake: IV 1566.2 / 1566.2 NS Inj 1,000 ML @ 100 mls/hr IV 850 / 850 .CONT .Q10H [facility] Rx#:[id number] Ofirmev Inj 1,000 mg In 100 ml 100 / 100 @ 400 mls/hr IV.SIG Q6H PRN Rx# :[id number] MVI-12 Inj 10 ML Thiamine Inj 511.2 / 511.2 100 MG Folvite Inj 1 MG In NS Inj 500 ML @ 125 mls/hr IV.SIG Q24H [facility] Rx#:[id number] Keppra Inj 500 MG In NS Inj 100 105 / 105 ML @ 400 mls/hr IV.SIG Q12H [facility] Rx#:[id number] Output: Urine Amount (Catheter) 1999 450 / 450 Indwelling Urethral Catheter 1999 450 / 450 Other: Weight On Admission 62.3 kg Narrative: Ms Rodriguez is alert, awake. Comfortable, in no acute distress. Speech is fluent. Cranial nerve examination: pupils to be equal, round and reactive to light. Extra-ocular movements are intact. Facial motor and sensory function are normal and symmetrical. Gross hearing appears intact. Sternocleidomastoid and trapezius muscles are symmetrical. Other cranial nerves are intact. Neck is soft and supple with a good range of motion without pain. Muscle strength is normal in all muscle groups of both upper and lower extremities. Sensory examination is intact to light touch and pin prick in both the upper and lower extremities. Deep tendon reflexes are symmetrical in both upper and lower extremities. There is a bilateral plantar flexion response. Cerebellar examination is unremarkable, without deficits. Lungs are clear Heart regular rhythm is regular rate Skin warm and dry - Urinary Catheter Management Indwelling Urethral Catheter Cath placed during this visit: yes, but has since been removed by the nurse Reason for continuing: Decision to DC catheter Insertion date: 01/12/18 Insertion time: 23:30 Removal date: 01/13/18 Removal time: 12:00 Assessment and Plan - Plan I have reviewed her follow up radiological findings Chest X-Ray 01/12/18 21:25 CONCLUSION: Consolidated left mid and lower lung which may represent a pulmonary contusion in the proper clinical setting. Possible minimally displaced fracture of the left eighth rib. CT of the chest is pending. Pelvis X-Ray 01/12/18 21:25 CONCLUSION: Intact pelvis. Abdomen/Pelvis CT 01/12/18 21:28 CONCLUSION: 1. No acute visceral organ injury demonstrated. 2. Nonspecific distention of the urinary bladder. 3. Enlarged and fatty liver. 4. Small hiatal hernia. Cervical Spine CT 01/12/18 21:28 CONCLUSION: 1. Nondisplaced fracture left occipital bone. 2. No acute fracture of the cervical spine. No significant canal stenosis. 8 mm nonspecific circumscribed lytic lesion at the C5 vertebral body. Chest CT 01/12/18 21:28 CONCLUSION: 1. Negative for acute traumatic injury to the thorax. Face CT 01/12/18 21:28 CONCLUSION: 1. Minimally displaced fracture of the left side of the nasal arch. No other facial fracture. 2. There is skull base fracturing involving the bilateral sphenoid bones and the left occiput. Head CT 01/12/18 21:28 CONCLUSION: 1. Bilateral sphenoid and left occipital nondisplaced skull base fractures. 2. Bifrontal and left temporal parenchymal contusions. Small right frontal, right parietal and left temporal subdural hematomas. No mass effect or midline shift at this time. . Head CT 01/13/18 00:00 CONCLUSION: 1. Significant increased volume of the right subdural hematoma now resulting in mass effect with new 2 mm of [id number] midline shift. This finding was telephoned to the patient's nurse. 2. Increased size of the bifrontal hemorrhagic contusions. 3. Nondisplaced left occipital bone fracture is stable. Neuro: neuro checks in a serial fashion. Her CT looks significantly worse today. Continue neuro protection. Follow up CT in 24-48 hrs ETOH abuse. Monitor patient for DT. Thiamine, folic acid, MVI Hyponatremia. Monitor patient's sodium she may require hypertonic saline Salt tablets for now Facial fractures. OMF input noted Pulmonary: aggressive pulmonary toilette, nasotracheal suction, and breathing treatments with nebulizers. Daily PT and OT Renal: Continue to monitor closely urine output, BUN and creatinine Endocrine: Continue to Monitor serial Acu checks and SSI as needed in detail ID continue to monitor for signs of infection Continue Protonix for stress ulcer prophylaxis Continue Harsh hose and SCD's for DVT prophylaxis Further recommendations will be provided depending on the patient's clinical evaluation and follow up studies. Discussed patient's clinical picture with trauma surgeon
[2018-01-13] MEDS: HYDROmorphone PF Inj 0.5 MG/0.5 ML Syringe IV.PUSH PRN (20:13)
[2018-01-13] MEDS: Sodium Chloride 23.4% Inj 188 MEQ in Sod Chloride 0.9% Inj 1,000 ML IV.CONT SCH (20:32)
--- NOTE | 2018-01-13 21:58 | XR ---
EXAM DATE: 01/13/2018 9:52 PM EST AGE/SEX: 57 years / Female INDICATIONS: Trauma post fall 1 day ago CLINICAL DATA: This is the patient's subsequent encounter. Patient reports that signs and symptoms h ave been present for 1 day and indicates a pain score of 5/10. MEDICAL/SURGICAL HISTORY: None. None. COMPARISON: [facility] – [place], [place] CERVICAL SPINE W/O CONTRAST, 01/12/2018. [facility] [place], MR CERVICAL SPINE W/O CONTRA ST, 01/13/2018. . FINDINGS: Moderate severity disc space narrowing with circumferential disc osteophyte complex seen at C4/C5. No fracture is demonstrated. No subluxation but there is a degenerative appearing kyphosis centered nicolasa und C4/C5 which worsens slightly during flexion. Prevertebral soft tissues are within normal limits. CONCLUSION: Reversal of the cervical lordosis, presumably degenerative. Degenerative changes are again noted at C 4/C5. No subluxation or abnormal motion demonstrated. Electronically signed by: Payam Huerta MD 01/13/2018 9:56 PM EST
[2018-01-14] MEDS: Sodium Chloride 1 GM Tablet PO SCH ×3 (00:51→18:40)
[2018-01-14] MEDS: Chlorhexidine Gluconate 2% 1 Pack (2 Cloths) TOPICAL SCH (03:17)
[2018-01-14] MEDS ORDERED: Chlorhexidine Gluconate 2% 1 Pack (2 Cloths) TOPICAL PRN (04:00)
[2018-01-14] MEDS: Methocarbamol 500 MG Tablet PO SCH ×3 (05:08→21:06)
[2018-01-14 05:15] LABS: Baso # (Auto) 0.1 th/mm3 (0.0-0.2); Baso % (Auto) 0.5 % (0.0-2.0); Eos % (Auto) 0.1 % (0.0-4.0); Hematocrit 34.5 % (35.0-46.0); Hemoglobin 11.8 gm/dL (11.6-15.3); Lymph # (Auto) 1.5 th/mm3 (1.0-4.8); Lymph % (Auto) 13.9 % (9.0-44.0); Mean Corpuscular HGB Conc 34.3 % (32.0-36.0); Mean Corpuscular Hemoglobin 33.5 pg (27.0-34.0); Mean Corpuscular Volume 97.7 fL (80.0-100.0); Mean Platelet Volume 7.5 fL (7.0-11.0); Mono # (Auto) 1.2 th/mm3 (0.0-0.9); Mono % (Auto) 10.9 % (0.0-8.0); Neut # (Auto) 7.9 th/mm3 (1.8-7.7); Neut % (Auto) 74.6 % (16.0-70.0); Platelet Count 230 th/mm3 (150-450); Red Blood Count 3.53 mil/mm3 (4.00-5.30); Red Cell Distribution Width 12.6 % (11.6-17.2); White Blood Count 10.6 th/mm3 (4.0-11.0)
[2018-01-14] MEDS: Sod Chloride 0.9% Inj 1,000 ML IV.CONT SCH (05:37)
[2018-01-14 05:53] LABS: Anion Gap 7 meq/L (5-15); Blood Urea Nitrogen 9 mg/dL (7-18); Calcium 8.1 mg/dL (8.5-10.1); Carbon Dioxide 27.5 meq/L (21.0-32.0); Chloride 99 meq/L (98-107); Glomerular Filtration Rate Greater Than 89 mL/min (>89); Glucose,Random 119 mg/dL (74-106); Potassium 3.6 meq/L (3.5-5.1); Sodium 133 meq/L (136-145)
[2018-01-14] MEDS: Multivitamin Inj 10 ML, Thiamine Inj 100 MG, Folic Acid Inj 1 MG in Sodium Chlor 0.9% I... IV.SIG SCH ×2 (08:00→09:28)
--- NOTE | 2018-01-14 08:52 | CT ---
EXAM DATE: 01/14/2018 8:41 AM EST AGE/SEX: 57 years / Female INDICATIONS: Abnormal prior imaging. Evaluate status of Traumatic brain injury. CLINICAL DATA: This is the patient's initial encounter. Patient reports that signs and symptoms have been present for 1 day and indicates a pain score of 0/10. MEDICAL/SURGICAL HISTORY: None. None. RADIATION DOSE: 47.98 CTDI (mGy) COMPARISON: [facility] – [place], [place] HEAD W/O CONTRAST, 01/13/2018. . TECHNIQUE: CT of the head without contrast. Using automated exposure control and adjustment of the mA and/or kV according to patient size, radiation dose was kept as low as reasonably achievable to ob tain optimal diagnostic quality images. DICOM format image data is available electronically for revi ew and comparison. FINDINGS: Cerebrum: Bifrontal hemorrhagic contusions have not enlarged but demonstrate increasing surrounding edema and sulcal effacement. Subarachnoid hemorrhage along the right frontal lobe is decreasing in si ze. Right frontal temporal subdural hematoma is stable in size with no further enlargement.. Posterior Fossa: The cerebellum and brainstem are intact. The 4th ventricle is midline. The cerebe llopontine angle is unremarkable. Extracranial: The sphenoid sinuses remain almost completely opacified. Skull: Skull fracture extending through the base of the left occipital bone is again noted. CONCLUSION: 1. Increasing edema surrounding bifrontal hemorrhagic contusions. 2. No significant enlargement of parenchymal hemorrhage or right subdural hematoma. 3. Slight decrease in subarachnoid blood. 4. Stable right occipital fracture. . Electronically signed by: Mason Khan MD 01/14/2018 8:51 AM EST
[2018-01-14] MEDS: Senna/Docusate Sodium 8.6/50 MG Tablet PO SCH ×2 (09:22→21:06)
[2018-01-14] MEDS: HYDROmorphone PF Inj 0.5 MG/0.5 ML Syringe IV.PUSH PRN ×2 (09:22→15:21)
[2018-01-14] MEDS: levETIRAcetam 500 MG Tablet PO SCH ×2 (09:22→21:06)
[2018-01-14] MEDS: Pantoprazole Inj 40 MG Vial IV.PUSH SCH (09:22)
[2018-01-14] MEDS: Folic Acid 1 MG Tablet PO SCH (10:35)
--- NOTE | 2018-01-14 11:26 | P.PNCC ---
Subjective Brief History: 57-year-old woman with history of chronic EtOH abuse status post fall resulted in a TBI with subdural subarachnoidal bleeding 24 Hour Review/Hospital Course: 01/13 GCS is 15 patient complains of headache She has also midline neck tenderness and will obtain an MRI Repeat CT scan of the head shows increasing size of her subdural hematoma, I discussed this with the neurosurgeon for now will patient remain on observation n.p.o. status-besides medications He is on Keppra, she is hemodynamically normal ,OMFS surgeons input appreciated patient is nonsurgical 01/13 GCS 15 unchanged, patient complains of mild nausea Her MRI of the neck is negative and she is now pain-free Her CT scan today is essentially stable with some mild edema around the frontal contusions Sodium is 132/started on 2% hypertonic saline to increase the sodium to the level of high 130s or 140 Continues to be on Keppra Start on propranolol for mild hypertension Objective Vital Signs / I&O: Vital Signs 01/13/18 11:47 01/13/18 12:07 01/13/18 12:09 Temperature 98.5 F Pulse Rate 79 81 81 Respiratory Rate 15 14 26 H Blood Pressure 133/85 139/84 Pulse Oximetry 98 93 L 94 L 01/13/18 13:11 01/13/18 14:00 01/13/18 14:35 Temperature Pulse Rate 78 78 Respiratory Rate 20 22 Blood Pressure Pulse Oximetry 95 96 93 L 01/13/18 14:46 01/13/18 14:47 01/13/18 15:00 Temperature Pulse Rate 79 81 Respiratory Rate 23 20 Blood Pressure 156/101 H 161/93 H Pulse Oximetry 96 98 01/13/18 15:01 01/13/18 15:14 01/13/18 15:44 Temperature Pulse Rate 82 80 81 Respiratory Rate 22 25 H 19 Blood Pressure 145/92 H 142/94 H 140/89 Pulse Oximetry 97 97 96 01/13/18 16:00 01/13/18 16:14 01/13/18 16:44 Temperature 98.4 F Pulse Rate 81 76 80 Respiratory Rate 22 22 24 Blood Pressure 140/89 131/88 160/74 H Pulse Oximetry 97 90 L 97 01/13/18 17:00 01/13/18 17:14 01/13/18 17:44 Temperature Pulse Rate 80 88 90 Respiratory Rate 23 24 23 Blood Pressure 167/103 H 165/95 H Pulse Oximetry 97 97 97 01/13/18 18:00 01/13/18 18:14 01/13/18 18:44 Temperature Pulse Rate 78 76 77 Respiratory Rate 22 22 24 Blood Pressure 146/87 H 161/90 H Pulse Oximetry 99 97 96 01/13/18 19:00 01/13/18 19:14 01/13/18 19:51 Temperature Pulse Rate 77 76 Respiratory Rate 23 24 Blood Pressure 145/87 H 168/82 H Pulse Oximetry 96 96 01/13/18 20:00 01/13/18 20:14 01/13/18 20:44 Temperature 98.9 F Pulse Rate 74 74 104 H Respiratory Rate 21 20 24 Blood Pressure 153/88 H 173/94 H Pulse Oximetry 97 97 95 01/13/18 21:00 01/13/18 21:14 01/13/18 21:44 Temperature Pulse Rate 75 72 78 Respiratory Rate 19 17 24 Blood Pressure 143/73 H 160/98 H Pulse Oximetry 95 95 95 01/13/18 21:50 01/13/18 22:00 01/13/18 22:14 Temperature Pulse Rate 76 72 Respiratory Rate 22 20 20 Blood Pressure 138/78 Pulse Oximetry 96 96 01/13/18 22:44 01/13/18 23:00 01/13/18 23:11 Temperature Pulse Rate 72 72 81 Respiratory Rate 22 22 24 Blood Pressure 131/73 Pulse Oximetry 98 98 97 01/14/18 00:00 01/14/18 00:10 01/14/18 01:00 Temperature 99.3 F Pulse Rate 70 71 Respiratory Rate 18 18 Blood Pressure 137/78 125/73 Pulse Oximetry 96 98 01/14/18 02:00 01/14/18 03:00 01/14/18 04:00 Temperature 98.9 F Pulse Rate 70 73 Respiratory Rate 19 19 20 Blood Pressure 136/80 146/90 H Pulse Oximetry 99 99 01/14/18 07:00 01/14/18 08:00 01/14/18 09:00 Temperature 98.1 F Pulse Rate 84 74 71 Respiratory Rate 29 H 22 18 Blood Pressure 150/76 H 151/89 H 163/86 H Pulse Oximetry 94 L 98 93 L 01/14/18 10:39 Temperature Pulse Rate Respiratory Rate Blood Pressure Pulse Oximetry 96 Intake & Output 01/13/18 01/14/18 01/14/18 18:59 06:59 18:59 Intake Total 2046.2 / 2046.2 Output Total 1080 / 1080 Balance 966.2 / 966.2 Weight 62.3 kg Intake: IV 1566.2 / 1566.2 NS Inj 1,000 ML @ 100 mls/hr IV 850 / 850 .CONT .Q10H [facility] Rx#:[id number] Ofirmev Inj 1,000 mg In 100 ml 100 / 100 @ 400 mls/hr IV.SIG Q6H PRN Rx# :[id number] MVI-12 Inj 10 ML Thiamine Inj 511.2 / 511.2 100 MG Folvite Inj 1 MG In NS Inj 500 ML @ 125 mls/hr IV.SIG Q24H [facility] Rx#:[id number] Keppra Inj 500 MG In NS Inj 100 105 / 105 ML @ 400 mls/hr IV.SIG Q12H [facility] Rx#:[id number] Oral 480 / 480 Output: Emesis 180 / 180 Urine Amount (Catheter) 900 / 900 Indwelling Urethral Catheter 900 / 900 Other: # Voids 3 4 # Incontinent Voids 0 # Emeses 3 Result Diagrams: 01/14/18 04:38 01/14/18 04:38 Imaging: Impressions Cervical Spine MRI 01/13/18 00:00 CONCLUSION: 1. No acute cervical spine abnormality is identified. 2. Mild cervical kyphosis secondary to the degenerative disc disease at C4-C5. At this level there is posterior disc osteophyte complex and bilateral uncovertebral osteophyte mildly narrowing the neural foramina bilaterally. Cervical Spine X-Ray 01/13/18 00:00 CONCLUSION: Reversal of the cervical lordosis, presumably degenerative. Degenerative changes are again noted at C4/C5. No subluxation or abnormal motion demonstrated. Head CT 01/13/18 00:00 CONCLUSION: 1. Significant increased volume of the right subdural hematoma now resulting in mass effect with new 2 mm of [id number] midline shift. This finding was telephoned to the patient's nurse. 2. Increased size of the bifrontal hemorrhagic contusions. 3. Nondisplaced left occipital bone fracture is stable. . Head CT 01/14/18 06:00 CONCLUSION: 1. Increasing edema surrounding bifrontal hemorrhagic contusions. 2. No significant enlargement of parenchymal hemorrhage or right subdural hematoma. 3. Slight decrease in subarachnoid blood. 4. Stable right occipital fracture. . Disinhibition Score: 14.00 Aggression Score: 14.00 Lability Score: 14.00 Agitated Behavior Total Score: 14 - Exam CELL CHANGER: Coma score is 15, neuro is intact Hemodynamic/Cardiac: Slight hypertension-propranolol Pulmonary/Respiratory: Breath sounds are clear bilateral Abdomen/GI Nutrition: Abdomen is soft benign Renal/I&O: Hypertonic saline for hypo-natremia Assessment and Plan Plan: Monitor patient for DT Continue neuro protection Monitor patient's sodium on hypertonic saline Out of bed Hold on chemical DVT prophylaxis
--- NOTE | 2018-01-14 15:56 | P.PNNS ---
Subjective Interval history: Brief History: HD#2 57-year-old woman with history of chronic EtOH abuse status post fall resulted in a TBI with subdural, subarachnoidal bleeding and non-displaced left sided skull fracture. 01/13 GCS is 15 patient complains of headache She has also midline neck tenderness and will obtain an MRI Repeat CT scan of the head shows increasing size of her subdural hematoma, He is on Keppra, she is hemodynamically normal ,OMFS surgeons input appreciated patient is nonsurgical 01/13 GCS 15 unchanged, patient complains of mild nausea Her MRI of the neck is negative and she is now pain-free Her CT scan today is essentially stable with some mild edema around the frontal contusions Sodium is 132/started on 2% hypertonic saline to increase the sodium to the level of high 130s or 140 Continues to be on Keppra Start on propranolol for mild hypertension 01/15 Remains Neurologically stable, GCS-15 some N/V's associated with H/A's. Physical Exam Vital signs: Vital Signs 01/13/18 15:44 01/13/18 16:00 01/13/18 16:14 Temperature 98.4 F Pulse Rate 81 81 76 Respiratory Rate 19 22 22 Blood Pressure 140/89 140/89 131/88 Pulse Oximetry 96 97 90 L 01/13/18 16:44 01/13/18 17:00 01/13/18 17:14 Temperature Pulse Rate 80 80 88 Respiratory Rate 24 23 24 Blood Pressure 160/74 H 167/103 H Pulse Oximetry 97 97 97 01/13/18 17:44 01/13/18 18:00 01/13/18 18:14 Temperature Pulse Rate 90 78 76 Respiratory Rate 23 22 22 Blood Pressure 165/95 H 146/87 H Pulse Oximetry 97 99 97 01/13/18 18:44 01/13/18 19:00 01/13/18 19:14 Temperature Pulse Rate 77 77 Respiratory Rate 24 23 Blood Pressure 161/90 H 145/87 H Pulse Oximetry 96 96 01/13/18 19:51 01/13/18 20:00 01/13/18 20:14 Temperature 98.9 F Pulse Rate 76 74 74 Respiratory Rate 24 21 20 Blood Pressure 168/82 H 153/88 H Pulse Oximetry 96 97 97 01/13/18 20:44 01/13/18 21:00 01/13/18 21:14 Temperature Pulse Rate 104 H 75 72 Respiratory Rate 24 19 17 Blood Pressure 173/94 H 143/73 H Pulse Oximetry 95 95 95 01/13/18 21:44 01/13/18 21:50 01/13/18 22:00 Temperature Pulse Rate 78 76 Respiratory Rate 24 22 20 Blood Pressure 160/98 H Pulse Oximetry 95 96 01/13/18 22:14 01/13/18 22:44 01/13/18 23:00 Temperature Pulse Rate 72 72 72 Respiratory Rate 20 22 22 Blood Pressure 138/78 131/73 Pulse Oximetry 96 98 98 01/13/18 23:11 01/14/18 00:00 01/14/18 00:10 Temperature 99.3 F Pulse Rate 81 70 Respiratory Rate 24 18 Blood Pressure 137/78 Pulse Oximetry 97 96 01/14/18 01:00 01/14/18 02:00 01/14/18 03:00 Temperature Pulse Rate 71 70 73 Respiratory Rate 18 19 19 Blood Pressure 125/73 136/80 146/90 H Pulse Oximetry 98 99 99 01/14/18 04:00 01/14/18 07:00 01/14/18 08:00 Temperature 98.9 F 98.1 F Pulse Rate 84 74 Respiratory Rate 20 29 H 22 Blood Pressure 150/76 H 151/89 H Pulse Oximetry 94 L 98 01/14/18 09:00 01/14/18 10:00 01/14/18 10:39 Temperature Pulse Rate 71 71 Respiratory Rate 18 19 Blood Pressure 163/86 H 153/84 H Pulse Oximetry 93 L 96 96 01/14/18 11:00 01/14/18 12:00 01/14/18 13:00 Temperature 97.5 F L Pulse Rate 66 65 64 Respiratory Rate 15 24 18 Blood Pressure 135/75 145/89 H Pulse Oximetry 96 96 96 01/14/18 13:35 01/14/18 14:00 01/14/18 14:23 Temperature Pulse Rate 63 76 63 Respiratory Rate 16 37 H 17 Blood Pressure 157/98 H 164/103 H Pulse Oximetry 99 94 L 95 01/14/18 14:28 01/14/18 15:00 Temperature Pulse Rate 70 Respiratory Rate 30 H Blood Pressure 167/96 H 165/101 H Pulse Oximetry 98 Intake & Output 01/13/18 01/14/18 01/14/18 18:59 06:59 18:59 Intake Total 2046.2 / 2046.2 Output Total 1080 / 1080 Balance 966.2 / 966.2 Weight 62.3 kg Intake: IV 1566.2 / 1566.2 NS Inj 1,000 ML @ 100 mls/hr IV 850 / 850 .CONT .Q10H DONTE Rx#:[id number] Ofirmev Inj 1,000 mg In 100 ml 100 / 100 @ 400 mls/hr IV.SIG Q6H PRN Rx# :[id number] MVI-12 Inj 10 ML Thiamine Inj 511.2 / 511.2 100 MG Folvite Inj 1 MG In NS Inj 500 ML @ 125 mls/hr IV.SIG Q24H DONTE Rx#:[id number] Keppra Inj 500 MG In NS Inj 100 105 / 105 ML @ 400 mls/hr IV.SIG Q12H DONTE Rx#:[id number] Oral 480 / 480 Output: Emesis 180 / 180 Urine Amount (Catheter) 900 / 900 Indwelling Urethral Catheter 900 / 900 Other: # Voids 3 4 # Incontinent Voids 0 # Emeses 3 - Constitutional no acute distress - Routine HEENT Exam Head: Present: normocephalic, abrasion, hematoma, facial swelling Comments: Bilateral racoon eyes - Routine Neurological Exam MS: AAOx3 Speech fluent CNII-XII; intact Motor: 5/5, R=L, neg. drift Sensory: +LT, +PP Cerebellum: WNL Gait: not tested - Detailed Neurological Exam: Coma Scale Eye Opening: Spontaneous Verbal Response: Oriented Motor Response: Obey commands Luis Armando Coma Scale Total: 15 - Routine Psychiatric Exam Present: cooperative - Urinary Catheter Management Indwelling Urethral Catheter Cath placed during this visit: yes, but has since been removed by the nurse Reason for continuing: Decision to DC catheter Insertion date: 01/12/18 Insertion time: 23:30 Removal date: 01/13/18 Removal time: 12:00 Assessment and Plan - Plan I have reviewed the clinical and radiological findings Chest X-Ray 01/12/18 21:25 CONCLUSION: Consolidated left mid and lower lung which may represent a pulmonary contusion in the proper clinical setting. Possible minimally displaced fracture of the left eighth rib. CT of the chest is pending. Pelvis X-Ray 01/12/18 21:25 CONCLUSION: Intact pelvis. Abdomen/Pelvis CT 01/12/18 21:28 CONCLUSION: 1. No acute visceral organ injury demonstrated. 2. Nonspecific distention of the urinary bladder. 3. Enlarged and fatty liver. 4. Small hiatal hernia. Neuro: Non-focal GCS-15 Would D/C 2% hts and salt tabs. Sodium drift most likely due to rehydration on admission. If it drops again below 130, would evaluate for cerebral salt wasting syndrome vs. SIADH
[2018-01-14] MEDS: Metoprolol Inj 5 MG/5 ML Vial IV.PUSH PRN (21:07)
[2018-01-14] MEDS: Sodium Chloride 23.4% Inj 188 MEQ in Sod Chloride 0.9% Inj 1,000 ML IV.CONT SCH (21:30)
[2018-01-15] MEDS: Sodium Chloride 1 GM Tablet PO SCH ×3 (01:53→18:30)
[2018-01-15] MEDS: Chlorhexidine Gluconate 2% 1 Pack (2 Cloths) TOPICAL SCH (04:13)
[2018-01-15] MEDS: HYDROmorphone PF Inj 0.5 MG/0.5 ML Syringe IV.PUSH PRN ×2 (04:20→08:54)
[2018-01-15] MEDS: Methocarbamol 500 MG Tablet PO SCH ×3 (06:41→21:52)
[2018-01-15 07:51] LABS: Baso # (Auto) 0.1 th/mm3 (0.0-0.2); Baso % (Auto) 0.6 % (0.0-2.0); Eos % (Auto) 0.3 % (0.0-4.0); Hematocrit 33.5 % (35.0-46.0); Hemoglobin 11.4 gm/dL (11.6-15.3); Lymph # (Auto) 1.3 th/mm3 (1.0-4.8); Lymph % (Auto) 14.2 % (9.0-44.0); Mean Corpuscular HGB Conc 34.1 % (32.0-36.0); Mean Corpuscular Hemoglobin 33.4 pg (27.0-34.0); Mean Corpuscular Volume 98.1 fL (80.0-100.0); Mean Platelet Volume 7.4 fL (7.0-11.0); Mono # (Auto) 1.1 th/mm3 (0.0-0.9); Mono % (Auto) 12.4 % (0.0-8.0); Neut # (Auto) 6.7 th/mm3 (1.8-7.7); Neut % (Auto) 72.5 % (16.0-70.0); Platelet Count 241 th/mm3 (150-450); Red Blood Count 3.41 mil/mm3 (4.00-5.30); Red Cell Distribution Width 12.6 % (11.6-17.2); White Blood Count 9.2 th/mm3 (4.0-11.0)
[2018-01-15 08:09] LABS: Anion Gap 9 meq/L (5-15); Blood Urea Nitrogen 7 mg/dL (7-18); Calcium 7.9 mg/dL (8.5-10.1); Carbon Dioxide 27.8 meq/L (21.0-32.0); Chloride 98 meq/L (98-107); Glomerular Filtration Rate Greater Than 89 mL/min (>89); Glucose,Random 115 mg/dL (74-106); Potassium 3.2 meq/L (3.5-5.1); Sodium 135 meq/L (136-145)
[2018-01-15] MEDS: Folic Acid 1 MG Tablet PO SCH (08:54)
[2018-01-15] MEDS: levETIRAcetam 500 MG Tablet PO SCH ×2 (08:54→20:21)
[2018-01-15] MEDS: Senna/Docusate Sodium 8.6/50 MG Tablet PO SCH ×2 (08:55→20:20)
[2018-01-15] MEDS: Pantoprazole Inj 40 MG Vial IV.PUSH SCH (08:55)
[2018-01-15] MEDS ORDERED: Potassium Chlor 20 mEq Premix 20 MEQ/100 ML PIGGYBACK IV.SIG PRN ×2 (09:29)
[2018-01-15] MEDS ORDERED: Magnesium Sulfate Inj 2 GM in Sodium Chlor 0.9% Inj 96 ML IV.SIG PRN (09:29)
[2018-01-15] MEDS ORDERED: Magnesium Sulfate Inj 4 GM in Sodium Chlor 0.9% Inj 92 ML IV.SIG PRN (09:29)
[2018-01-15] MEDS ORDERED: Potassium Phosphate Inj 30 MMOL in Sodium Chlor 0.9% Inj 250 ML IV.SIG PRN (09:29)
[2018-01-15] MEDS ORDERED: Potassium Chlor 40 mEq Premix 40 MEQ/100 ML PIGGYBACK IV.SIG PRN ×2 (09:29)
[2018-01-15] MEDS ORDERED: Magnesium Oxide 400 MG Tablet PO PRN (09:29)
[2018-01-15] MEDS ORDERED: Sodium Phosphate Inj 30 MMOL in Sodium Chlor 0.9% Inj 250 ML IV.SIG PRN (09:29)
[2018-01-15] MEDS ORDERED: Potassium Phosphate 500 MG Soluble Tablet PO PRN ×2 (09:29)
--- NOTE | 2018-01-15 11:16 | P.PNNS ---
Subjective Interval history: HD#3 57-year-old woman with history of chronic EtOH abuse status post fall resulted in a TBI with subdural, subarachnoidal bleeding and non-displaced left sided skull fracture. 01/13 GCS is 15 patient complains of headache She has also midline neck tenderness and will obtain an MRI Repeat CT scan of the head shows increasing size of her subdural hematoma, He is on Keppra, she is hemodynamically normal ,OMFS surgeons input appreciated patient is nonsurgical 01/13 GCS 15 unchanged, patient complains of mild nausea Her MRI of the neck is negative and she is now pain-free Her CT scan today is essentially stable with some mild edema around the frontal contusions Sodium is 132/started on 2% hypertonic saline to increase the sodium to the level of high 130s or 140 Continues to be on Keppra Start on propranolol for mild hypertension 01/14 Remains Neurologically stable, GCS-15 some N/V's associated with H/A's. 01/15 Persistent H/A's and N/V's esther. with Valsalva Physical Exam Vital signs: Vital Signs 01/14/18 12:00 01/14/18 13:00 01/14/18 13:35 Temperature 97.5 F L Pulse Rate 65 64 63 Respiratory Rate 24 18 16 Blood Pressure 145/89 H 157/98 H Pulse Oximetry 96 96 99 01/14/18 14:00 01/14/18 14:23 01/14/18 14:28 Temperature Pulse Rate 76 63 Respiratory Rate 37 H 17 Blood Pressure 164/103 H 167/96 H Pulse Oximetry 94 L 95 01/14/18 15:00 01/14/18 16:00 01/14/18 17:00 Temperature 98.8 F Pulse Rate 70 66 65 Respiratory Rate 30 H 22 32 H Blood Pressure 165/101 H 174/103 H 158/94 H Pulse Oximetry 98 93 L 97 01/14/18 18:00 01/14/18 19:00 01/14/18 19:02 Temperature Pulse Rate 66 87 77 Respiratory Rate 25 H 46 H 35 H Blood Pressure 170/100 H 171/103 H Pulse Oximetry 94 L 94 L 93 L 01/14/18 19:12 01/14/18 19:59 01/14/18 20:00 Temperature 98.1 F Pulse Rate 71 76 74 Respiratory Rate 22 34 H 32 H Blood Pressure 163/79 H 178/94 H Pulse Oximetry 97 95 93 L 01/14/18 20:11 01/14/18 20:13 01/14/18 21:00 Temperature Pulse Rate 70 70 Respiratory Rate 28 H 41 H Blood Pressure 171/96 H 182/114 H Pulse Oximetry 94 L 94 L 94 L 01/14/18 21:22 01/14/18 22:00 01/14/18 23:01 Temperature Pulse Rate 67 62 71 Respiratory Rate 21 24 26 H Blood Pressure 174/92 H 163/90 H Pulse Oximetry 97 97 92 L 01/15/18 00:00 01/15/18 01:00 01/15/18 02:00 Temperature 97.8 F Pulse Rate 69 65 75 Respiratory Rate 22 20 Blood Pressure 144/72 H 166/92 H 157/76 H Pulse Oximetry 96 97 91 L 01/15/18 03:00 01/15/18 03:36 01/15/18 04:00 Temperature 98.2 F Pulse Rate 72 51 L 63 Respiratory Rate 29 H 23 20 Blood Pressure 153/79 H 160/95 H 175/109 H Pulse Oximetry 94 L 98 98 01/15/18 04:04 01/15/18 05:00 01/15/18 06:00 Temperature Pulse Rate 61 58 L 61 Respiratory Rate 26 H 14 31 H Blood Pressure 161/96 H 166/97 H 165/92 H Pulse Oximetry 97 94 L 95 01/15/18 07:00 01/15/18 08:00 01/15/18 08:25 Temperature 98.2 F Pulse Rate 67 65 65 Respiratory Rate 24 21 27 H Blood Pressure 163/90 H 207/104 H 176/110 H Pulse Oximetry 95 94 L 95 Intake & Output 01/14/18 01/15/18 01/15/18 18:59 06:59 18:59 Intake Total 400 / 400 1147 / 1147 Balance 400 / 400 1147 / 1147 Weight 81.5 kg Intake: IV 1147 / 1147 Sodium Chloride 23.4% Inj 188 1047 / 1047 MEQ In NS Inj 1,000 ML @ 60 mls /hr IV.CONT .[id number] DONTE Rx#: [id number] Ofirmev Inj 1,000 mg In 100 ml 100 / 100 @ 400 mls/hr IV.SIG Q6H PRN Rx# :[id number] Oral 400 / 400 Other: # Voids 6 8 # Incontinent Voids 3 Date of Last Bowel Movement 01/12/18 01/14/18 # Bowel Movements 0 1 - Constitutional mild distress, thin - Routine HEENT Exam Comments: Suboccipital/nuchal hematoma and bilateral racoon's eyes improving - Routine Neck Exam Present: supple, full ROM - Routine Skin Exam Present: intact - Routine Neurological Exam Present: alert, oriented X3, CN II-XII intact, normal reflexes, normal tone, normal speech - Detailed Neurological Exam: Coma Scale Eye Opening: Spontaneous Verbal Response: Oriented Motor Response: Obey commands Lui Sarmando Coma Scale Total: 15 - Routine Psychiatric Exam Present: unable to assess - Urinary Catheter Management Indwelling Urethral Catheter Cath placed during this visit: yes, but has since been removed by the nurse Reason for continuing: Decision to DC catheter Insertion date: 01/12/18 Insertion time: 23:30 Removal date: 01/13/18 Removal time: 12:00 Assessment and Plan - Plan I have reviewed the clinical and radiological findings Chest X-Ray 01/12/18 21:25 CONCLUSION: Consolidated left mid and lower lung which may represent a pulmonary contusion in the proper clinical setting. Possible minimally displaced fracture of the left eighth rib. CT of the chest is pending. Pelvis X-Ray 01/12/18 21:25 CONCLUSION: Intact pelvis. Abdomen/Pelvis CT 01/12/18 21:28 CONCLUSION: 1. No acute visceral organ injury demonstrated. 2. Nonspecific distention of the urinary bladder. 3. Enlarged and fatty liver. 4. Small hiatal hernia. Neuro: Non-focal GCS-15 Persistent N/V's despite Reglan and Zofran, consider Phenergan, D/C Dilaudid and start on IV Tylenol would evaluate for cerebral salt wasting syndrome vs. SIADH
[2018-01-15] MEDS: Potassium Chloride 25 MEQ Effervescent Tablet PO PRN (11:43)
[2018-01-15] MEDS: Haloperidol Inj 5 MG/ML Ampul IV.PUSH PRN (11:46)
[2018-01-15] MEDS ORDERED: clonazePAM 1 MG Tablet PO SCH (13:30)
--- NOTE | 2018-01-15 13:46 | P.PNCC ---
Subjective Brief History: 57-year-old woman with history of chronic EtOH abuse status post fall resulted in a TBI with subdural subarachnoidal bleeding 24 Hour Review/Hospital Course: 01/13 GCS is 15 patient complains of headache She has also midline neck tenderness and will obtain an MRI Repeat CT scan of the head shows increasing size of her subdural hematoma, I discussed this with the neurosurgeon for now will patient remain on observation n.p.o. status-besides medications He is on Keppra, she is hemodynamically normal ,OMFS surgeons input appreciated patient is nonsurgical 01/14 GCS 15 unchanged, patient complains of mild nausea Her MRI of the neck is negative and she is now pain-free Her CT scan today is essentially stable with some mild edema around the frontal contusions Sodium is 132/started on 2% hypertonic saline to increase the sodium to the level of high 130s or 140 Continues to be on Keppra Start on propranolol for mild hypertension 01/15 Patient is overall stable, her GCS remains 15 Continues to be nauseated with Reglan and Zofran we will add low-dose of Compazine Will use also IV Tylenol for headache instead of narcotics Will restart all home meds for hypertension She continues to be hyponatremic-differential diagnosis between cerebral salt wasting and SIADH is usually difficult-patient's volume status likely euvolemic I believe she has more likely has SIADH-she is on 2% hypertonic saline we will continue this with serial sodiums, sent urine sodium-again differential diagnosis was between cerebral salt wasting SIDH is difficult to make she is ambulating Objective Vital Signs / I&O: Vital Signs 01/14/18 13:35 01/14/18 14:00 01/14/18 14:23 Temperature Pulse Rate 63 76 63 Respiratory Rate 16 37 H 17 Blood Pressure 157/98 H 164/103 H Pulse Oximetry 99 94 L 95 01/14/18 14:28 01/14/18 15:00 01/14/18 16:00 Temperature 98.8 F Pulse Rate 70 66 Respiratory Rate 30 H 22 Blood Pressure 167/96 H 165/101 H 174/103 H Pulse Oximetry 98 93 L 01/14/18 17:00 01/14/18 18:00 01/14/18 19:00 Temperature Pulse Rate 65 66 87 Respiratory Rate 32 H 25 H 46 H Blood Pressure 158/94 H 170/100 H 171/103 H Pulse Oximetry 97 94 L 94 L 01/14/18 19:02 01/14/18 19:12 01/14/18 19:59 Temperature Pulse Rate 77 71 76 Respiratory Rate 35 H 22 34 H Blood Pressure 163/79 H Pulse Oximetry 93 L 97 95 01/14/18 20:00 01/14/18 20:11 01/14/18 20:13 Temperature 98.1 F Pulse Rate 74 70 Respiratory Rate 32 H 28 H Blood Pressure 178/94 H 171/96 H Pulse Oximetry 93 L 94 L 94 L 01/14/18 21:00 01/14/18 21:22 01/14/18 22:00 Temperature Pulse Rate 70 67 62 Respiratory Rate 41 H 21 24 Blood Pressure 182/114 H 174/92 H 163/90 H Pulse Oximetry 94 L 97 97 01/14/18 23:01 01/15/18 00:00 01/15/18 01:00 Temperature 97.8 F Pulse Rate 71 69 65 Respiratory Rate 26 H 22 20 Blood Pressure 144/72 H 166/92 H Pulse Oximetry 92 L 96 97 01/15/18 02:00 01/15/18 03:00 01/15/18 03:36 Temperature Pulse Rate 75 72 51 L Respiratory Rate 29 H 23 Blood Pressure 157/76 H 153/79 H 160/95 H Pulse Oximetry 91 L 94 L 98 01/15/18 04:00 01/15/18 04:04 01/15/18 05:00 Temperature 98.2 F Pulse Rate 63 61 58 L Respiratory Rate 20 26 H 14 Blood Pressure 175/109 H 161/96 H 166/97 H Pulse Oximetry 98 97 94 L 01/15/18 06:00 01/15/18 07:00 01/15/18 08:00 Temperature 98.2 F Pulse Rate 61 67 65 Respiratory Rate 31 H 24 21 Blood Pressure 165/92 H 163/90 H 207/104 H Pulse Oximetry 95 95 94 L 01/15/18 08:25 01/15/18 09:00 01/15/18 09:13 Temperature Pulse Rate 65 63 69 Respiratory Rate 27 H 21 33 H Blood Pressure 176/110 H 180/109 H 153/94 H Pulse Oximetry 95 93 L 90 L 01/15/18 10:00 01/15/18 11:00 01/15/18 11:31 Temperature Pulse Rate 58 L 69 Respiratory Rate 26 H 41 H Blood Pressure 168/90 H 177/127 H 191/135 H Pulse Oximetry 97 94 L 01/15/18 11:38 01/15/18 12:00 Temperature 98.0 F Pulse Rate 79 Respiratory Rate 20 41 H Blood Pressure 166/97 H Pulse Oximetry 95 Intake & Output 01/14/18 01/15/18 01/15/18 18:59 06:59 18:59 Intake Total 400 / 400 1147 / 1147 Balance 400 / 400 1147 / 1147 Weight 81.5 kg Intake: IV 1147 / 1147 Sodium Chloride 23.4% Inj 188 1047 / 1047 MEQ In NS Inj 1,000 ML @ 60 mls /hr IV.CONT .[id number] DONTE Rx#: [id number] Ofirmev Inj 1,000 mg In 100 ml 100 / 100 @ 400 mls/hr IV.SIG Q6H PRN Rx# :[id number] Oral 400 / 400 Other: # Voids 6 8 # Incontinent Voids 3 Date of Last Bowel Movement 01/12/18 01/14/18 # Bowel Movements 0 1 Result Diagrams: 01/15/18 07:35 01/15/18 12:31 Disinhibition Score: 14.00 Aggression Score: 14.00 Lability Score: 14.00 Agitated Behavior Total Score: 14 - Exam DRUG ABUSE RESISTANCE EDUCATION OFFICER: Coma score is 15 Hemodynamic/Cardiac: Hemodynamically normal slightly hypertensive Pulmonary/Respiratory: Breath sounds bilateral Abdomen/GI Nutrition: Abdomen is soft patient continues to be nausea Renal/I&O: Continue to monitor patient's sodium status-I believe she is euvolemic good urine output and BUN and creatinine ratio Assessment and Plan Plan: Monitor patient for DT Continue neuro protection Monitor patient's sodium on hypertonic saline Out of bed chemical DVT prophylaxis start tomorrow urine sodium,osmolality -
[2018-01-15] MEDS: Venlafaxine XR 75 MG Capsule PO SCH ×2 (14:31→14:40)
[2018-01-15] MEDS: Sodium Chloride 23.4% Inj 188 MEQ in Sod Chloride 0.9% Inj 1,000 ML IV.CONT SCH (14:36)
[2018-01-15] MEDS: amLODIPine 5 MG Tablet PO SCH (16:37)
[2018-01-15 19:52] LABS: Alanine Aminotransferase 85 U/L (10-53); Albumin 3.3 g/dL (3.4-5.0); Anion Gap 6 meq/L (5-15); Aspartate Aminotransferase 42 U/L (15-37); Blood Urea Nitrogen 7 mg/dL (7-18); Chloride 98 meq/L (98-107); Glomerular Filtration Rate Greater Than 89 mL/min (>89); Glucose,Random 122 mg/dL (74-106); Potassium 3.2 meq/L (3.5-5.1); Sodium 132 meq/L (136-145)
[2018-01-15 19:55] LABS: Alkaline Phosphatase 54 U/L (45-117); Total Protein 7.2 g/dL (6.4-8.2)
[2018-01-16] MEDS: Sodium Chloride 1 GM Tablet PO SCH ×3 (01:19→19:40)
[2018-01-16] MEDS: Potassium Chloride 25 MEQ Effervescent Tablet PO PRN ×3 (04:15→20:55)
[2018-01-16 04:30] LABS: Baso % (Auto) 0.5 % (0.0-2.0); Eos # (Auto) 0.2 th/mm3 (0.0-0.4); Eos % (Auto) 1.6 % (0.0-4.0); Hematocrit 35.4 % (35.0-46.0); Hemoglobin 12.5 gm/dL (11.6-15.3); Lymph # (Auto) 1.2 th/mm3 (1.0-4.8); Lymph % (Auto) 12.6 % (9.0-44.0); Mean Corpuscular HGB Conc 35.4 % (32.0-36.0); Mean Corpuscular Hemoglobin 33.6 pg (27.0-34.0); Mean Platelet Volume 7.5 fL (7.0-11.0); Mono # (Auto) 1.3 th/mm3 (0.0-0.9); Mono % (Auto) 13.3 % (0.0-8.0); Platelet Count 289 th/mm3 (150-450); Red Blood Count 3.72 mil/mm3 (4.00-5.30); Red Cell Distribution Width 12.6 % (11.6-17.2); White Blood Count 9.7 th/mm3 (4.0-11.0)
[2018-01-16 04:54] LABS: Anion Gap 8 meq/L (5-15); Blood Urea Nitrogen 5 mg/dL (7-18); Calcium 8.2 mg/dL (8.5-10.1); Carbon Dioxide 28.7 meq/L (21.0-32.0); Chloride 98 meq/L (98-107); Glomerular Filtration Rate Greater Than 89 mL/min (>89); Glucose,Random 114 mg/dL (74-106); Sodium 135 meq/L (136-145)
[2018-01-16] MEDS: Methocarbamol 500 MG Tablet PO SCH ×3 (05:13→22:42)
[2018-01-16] MEDS: Chlorhexidine Gluconate 2% 1 Pack (2 Cloths) TOPICAL SCH (05:13)
[2018-01-16] MEDS: Metoprolol Inj 5 MG/5 ML Vial IV.PUSH PRN (06:58)
[2018-01-16] MEDS: Haloperidol Inj 5 MG/ML Ampul IV.PUSH PRN (07:53)
--- NOTE | 2018-01-16 08:23 | P.PNNPSY ---
- Progress Notes/Response to Treatment Time with Patient: 30 minutes Premorbid Psychological Status: Premorbid Cognitive, Emotional and Behavioral Status: Tenuous. The patient has high school years of education and a sporadic work history prior to this injury. The patient has prior psychiatric difficulties, as described above. Substance abuse history includes ETOH dependence. Behavioral Reactions of Patient and Family/Support System: Tenuous. The patients family is experiencing ongoing issues of adjustment given the nature of the injury, and this aspect of recovery will require ongoing monitoring. Emotional/Behavioral Status of Patient and Family/Support System: Tenuous. Pertinent issues, if appropriate to this patients clinical care, are described in detail above. Maximizing Acute Care Outcome: It is recommended that the patient be monitored for emergent behavioral impulsivity as the medical condition evolves. This patients neuropathological challenges may limit rehabilitation potential going forward, and these challenges will require specialized therapeutic skills to maximize outcome. At this point in the recovery process, the patient does have cognitive capacity as the patient is able to understand a situation and its likely consequences, and she is able to manipulate information rationally. Cognitive capacity will be assessed throughout the recovery process. Anticipated Problems: Ongoing areas of concern will include behavioral impulsivity, lack of insight and judgment, which is expected to improve with time and treatment. Treatment Plan: This clinician will continue to follow with you throughout the course of this patients critical care treatment, and I will be available to meet with the patients family/support system to facilitate their understanding and the ongoing care of their family member. The goals of neuropsychological intervention shall be both educational and supportive to the family/support system as is deemed clinically appropriate. [place] COG Scale: Level Disinhibition Score: 14.00 Aggression Score: 14.00 Lability Score: 14.00 Agitated Behavior Total Score: 14 Impression: Unknown age woman s/p TBI 2T fall on 01/12/2018, and complicated by alcohol dependence, in controlled environment. Progress Note Narrative: PTD 4. The patient received Haldol PRN x 2, most recent this morning at 0753. Concern is ARLEY given her clinical history. Her ABS scores were 14 (14,14,14), so it is unclear why she received the PRN. During rounds, she was awake and conversant, but reports indicate early ARLEY. She was started on a valium taper with Keppra adjunct. I will follow. - Diagnosis (1) Major neurocognitive disorder as late effect of traumatic brain injury with behavioral disturbance Status: Acute (2) Alcohol dependence in controlled environment Status: Acute
[2018-01-16] MEDS: Senna/Docusate Sodium 8.6/50 MG Tablet PO SCH ×2 (09:54→20:57)
[2018-01-16] MEDS: Pantoprazole Inj 40 MG Vial IV.PUSH SCH (09:54)
[2018-01-16] MEDS: amLODIPine 5 MG Tablet PO SCH (09:55)
[2018-01-16] MEDS: Folic Acid 1 MG Tablet PO SCH (09:55)
[2018-01-16] MEDS: levETIRAcetam 500 MG Tablet PO SCH ×2 (09:55→20:56)
[2018-01-16] MEDS ORDERED: diazePAM 5 MG Tablet PO SCH (10:45)
[2018-01-16] MEDS: diazePAM 5 MG Tablet PO SCH ×3 (13:07→20:54)
[2018-01-16] MEDS: Lisinopril 10 MG Tablet PO SCH ×2 (13:07→20:57)
[2018-01-16 19:08] LABS: Potassium 3.5 meq/L (3.5-5.1)
[2018-01-16] MEDS: Mupirocin 2% Nasal Oint Topical Syringe EACH NARE SCH ×2 (19:37→22:42)
[2018-01-16] MEDS: Enoxaparin Inj 40 MG/0.4 ML Syringe SQ SCH ×2 (19:40→19:46)
[2018-01-17] MEDS: Sodium Chloride 1 GM Tablet PO SCH ×3 (01:43→17:46)
[2018-01-17 03:53] LABS: Baso # (Auto) 0.1 th/mm3 (0.0-0.2); Baso % (Auto) 0.6 % (0.0-2.0); Eos # (Auto) 0.3 th/mm3 (0.0-0.4); Eos % (Auto) 2.4 % (0.0-4.0); Hematocrit 36.7 % (35.0-46.0); Hemoglobin 13.2 gm/dL (11.6-15.3); Lymph # (Auto) 1.5 th/mm3 (1.0-4.8); Mean Corpuscular HGB Conc 35.9 % (32.0-36.0); Mean Corpuscular Hemoglobin 33.9 pg (27.0-34.0); Mean Corpuscular Volume 94.5 fL (80.0-100.0); Mean Platelet Volume 7.2 fL (7.0-11.0); Mono # (Auto) 1.7 th/mm3 (0.0-0.9); Mono % (Auto) 15.3 % (0.0-8.0); Neut # (Auto) 7.3 th/mm3 (1.8-7.7); Neut % (Auto) 67.7 % (16.0-70.0); Platelet Count 357 th/mm3 (150-450); Red Blood Count 3.88 mil/mm3 (4.00-5.30); Red Cell Distribution Width 12.2 % (11.6-17.2); White Blood Count 10.8 th/mm3 (4.0-11.0)
[2018-01-17 04:09] LABS: Sodium 131 meq/L (136-145)
[2018-01-17 04:14] LABS: Anion Gap 10 meq/L (5-15); Blood Urea Nitrogen 12 mg/dL (7-18); Calcium 8.3 mg/dL (8.5-10.1); Carbon Dioxide 26.1 meq/L (21.0-32.0); Chloride 96 meq/L (98-107); Glomerular Filtration Rate Greater Than 89 mL/min (>89); Glucose,Random 106 mg/dL (74-106); Potassium 3.9 meq/L (3.5-5.1); Sodium 132 meq/L (136-145)
[2018-01-17] MEDS: Chlorhexidine Gluconate 2% 1 Pack (2 Cloths) TOPICAL SCH (05:51)
[2018-01-17] MEDS: Methocarbamol 500 MG Tablet PO SCH ×3 (05:51→23:47)
--- NOTE | 2018-01-17 08:24 | P.PNNPSY ---
- Progress Notes/Response to Treatment Contents of Sessions: Adjustment, Level of consciousness Time with Patient: 30 minutes Premorbid Psychological Status: Premorbid Cognitive, Emotional and Behavioral Status: Tenuous. The patient has high school years of education and a sporadic work history prior to this injury. The patient has prior psychiatric difficulties, as described above. Substance abuse history includes ETOH dependence. Behavioral Reactions of Patient and Family/Support System: Tenuous. The patients family is experiencing ongoing issues of adjustment given the nature of the injury, and this aspect of recovery will require ongoing monitoring. Emotional/Behavioral Status of Patient and Family/Support System: Tenuous. Pertinent issues, if appropriate to this patients clinical care, are described in detail above. Maximizing Acute Care Outcome: It is recommended that the patient be monitored for emergent behavioral impulsivity as the medical condition evolves. This patients neuropathological challenges may limit rehabilitation potential going forward, and these challenges will require specialized therapeutic skills to maximize outcome. At this point in the recovery process, the patient does have cognitive capacity as the patient is able to understand a situation and its likely consequences, and she is able to manipulate information rationally. Cognitive capacity will be assessed throughout the recovery process. Anticipated Problems: Ongoing areas of concern will include behavioral impulsivity, lack of insight and judgment, which is expected to improve with time and treatment. Treatment Plan: This clinician will continue to follow with you throughout the course of this patients critical care treatment, and I will be available to meet with the patients family/support system to facilitate their understanding and the ongoing care of their family member. The goals of neuropsychological intervention shall be both educational and supportive to the family/support system as is deemed clinically appropriate. [place] COG Scale: Level Disinhibition Score: 19.25 Aggression Score: 14.00 Lability Score: 14.00 Agitated Behavior Total Score: 17 Impression: Unknown age woman s/p TBI 2T fall on 01/12/2018, and complicated by alcohol dependence, in controlled environment. Progress Note Narrative: PTD 5. The patient's ARLEY have improved. CIWA-Ar score is now 0 (down from 9), OAWS score is 1 (down from 3) and ABS is 17 (19.3,14,14) down from 14 (but this score was given after PRN Haldol). She is managed on Valium taper with Keppra adjunct, and she is also on propranolol 20 q8H. She is [place] . I will follow. - Diagnosis (1) Major neurocognitive disorder as late effect of traumatic brain injury with behavioral disturbance Status: Acute (2) Alcohol dependence in controlled environment Status: Acute
[2018-01-17] MEDS: levETIRAcetam 500 MG Tablet PO SCH ×2 (09:05→20:36)
[2018-01-17] MEDS: Lisinopril 10 MG Tablet PO SCH ×2 (09:06→20:37)
[2018-01-17] MEDS: diazePAM 5 MG Tablet PO SCH (09:07)
[2018-01-17] MEDS: amLODIPine 5 MG Tablet PO SCH (09:07)
[2018-01-17] MEDS: Folic Acid 1 MG Tablet PO SCH (09:07)
[2018-01-17] MEDS: Enoxaparin Inj 40 MG/0.4 ML Syringe SQ SCH (09:09)
[2018-01-17] MEDS: Senna/Docusate Sodium 8.6/50 MG Tablet PO SCH ×2 (09:09→21:34)
[2018-01-17] MEDS: Pantoprazole Inj 40 MG Vial IV.PUSH SCH (09:09)
[2018-01-17] MEDS: Mupirocin 2% Nasal Oint Topical Syringe EACH NARE SCH ×2 (09:42→20:38)
--- NOTE | 2018-01-17 10:40 | P.PNCC ---
Subjective Brief History: 57-year-old woman with history of chronic EtOH abuse status post fall resulted in a TBI with subdural subarachnoidal bleeding 24 Hour Review/Hospital Course: 01/13 GCS is 15 patient complains of headache She has also midline neck tenderness and will obtain an MRI Repeat CT scan of the head shows increasing size of her subdural hematoma, I discussed this with the neurosurgeon for now will patient remain on observation n.p.o. status-besides medications He is on Keppra, she is hemodynamically normal ,OMFS surgeons input appreciated patient is nonsurgical 01/14 GCS 15 unchanged, patient complains of mild nausea Her MRI of the neck is negative and she is now pain-free Her CT scan today is essentially stable with some mild edema around the frontal contusions Sodium is 132/started on 2% hypertonic saline to increase the sodium to the level of high 130s or 140 Continues to be on Keppra Start on propranolol for mild hypertension 01/15 Patient is overall stable, her GCS remains 15 Continues to be nauseated with Reglan and Zofran we will add low-dose of Compazine Will use also IV Tylenol for headache instead of narcotics Will restart all home meds for hypertension She continues to be hyponatremic-differential diagnosis between cerebral salt wasting and SIADH is usually difficult-patient's volume status likely euvolemic I believe she has more likely has SIADH-she is on 2% hypertonic saline we will continue this with serial sodiums, sent urine sodium-again differential diagnosis was between cerebral salt wasting SIDH is difficult to make she is ambulating 01/17/2018 Neurologically patient is intact alert and oriented [place] Coma Scale 15 Nausea and vomiting has abated since I placed patient on Decadron for nausea Hemodynamically patient is stable although she remains hypertensive which is part of the alcohol withdrawal process and blood pressure will fluctuate throughout the day somewhat. Patient is currently on beta-blockers and BRO inhibitors as well as Procardia. Renal function well preserved Metabolically patient is currently in hypervolemic hyponatremic state. Majority of patients with chronic alcoholism will present with relative hypovolemia and hyponatremia and after resuscitation will be either euvolemic and hyponatremic or in this case hypervolemic and hyponatremic. This patient unlikely has SIADH and more likely has her fluid retention in face of her alcoholism and metabolic state Based on plasma osmolality, generalized edema, history of alcoholism and renal function this patient is simply hypervolemic will need to be diuresed adequately and somewhat volume constricted Sodium 131 mEq/L Patient can be transferred to the floor today and will require rehab placement Alcohol withdrawal managed by Dr. Jose Araujo and his expertise is greatly appreciated Objective Vital Signs / I&O: Vital Signs 01/16/18 11:00 01/16/18 12:00 01/16/18 13:00 Temperature 97.6 F Pulse Rate 66 63 64 Respiratory Rate 25 H 25 H 29 H Blood Pressure 162/100 H 147/96 H 154/92 H Pulse Oximetry 100 95 01/16/18 13:06 01/16/18 14:00 01/16/18 14:29 Temperature Pulse Rate 74 59 L Respiratory Rate 18 37 H 19 Blood Pressure 138/89 Pulse Oximetry 01/16/18 15:00 01/16/18 15:26 01/16/18 16:00 Temperature 98 F Pulse Rate 68 66 72 Respiratory Rate 24 24 Blood Pressure 127/83 Pulse Oximetry 01/16/18 16:09 01/16/18 17:00 01/16/18 17:42 Temperature Pulse Rate 65 68 63 Respiratory Rate 22 28 H 19 Blood Pressure 158/93 H 149/101 H Pulse Oximetry 01/16/18 18:00 01/16/18 19:00 01/16/18 19:31 Temperature Pulse Rate 65 78 Respiratory Rate 20 23 Blood Pressure 161/95 H Pulse Oximetry 01/16/18 19:42 01/16/18 20:00 01/16/18 20:42 Temperature 98.4 F Pulse Rate 67 Respiratory Rate 22 Blood Pressure 158/86 H 162/112 H Pulse Oximetry 01/16/18 21:03 01/16/18 21:42 01/16/18 22:00 Temperature Pulse Rate 69 72 Respiratory Rate 24 23 Blood Pressure 149/93 H Pulse Oximetry 01/16/18 22:09 01/16/18 22:57 01/16/18 23:00 Temperature Pulse Rate 77 69 69 Respiratory Rate 14 19 22 Blood Pressure 130/94 H 149/89 H Pulse Oximetry 94 L 95 96 01/17/18 00:00 01/17/18 00:01 01/17/18 01:00 Temperature Pulse Rate 63 63 60 Respiratory Rate 24 23 31 H Blood Pressure 134/84 Pulse Oximetry 95 96 94 L 01/17/18 01:42 01/17/18 02:00 01/17/18 03:00 Temperature Pulse Rate 60 70 58 L Respiratory Rate 22 20 20 Blood Pressure 128/85 148/87 H 143/84 H Pulse Oximetry 93 L 94 L 94 L 01/17/18 03:42 01/17/18 04:00 01/17/18 04:42 Temperature 98.2 F Pulse Rate 61 53 L Respiratory Rate 21 22 Blood Pressure 148/87 H 162/91 H Pulse Oximetry 95 93 L 01/17/18 05:00 01/17/18 05:47 01/17/18 06:00 Temperature Pulse Rate 54 L 58 L 68 Respiratory Rate 22 24 24 Blood Pressure 165/109 H Pulse Oximetry 93 L 97 01/17/18 06:05 01/17/18 07:00 01/17/18 07:15 Temperature Pulse Rate 62 60 Respiratory Rate 19 33 H Blood Pressure 156/93 H Pulse Oximetry 97 96 01/17/18 07:58 01/17/18 08:00 Temperature 97.8 F Pulse Rate 62 Respiratory Rate Blood Pressure 149/84 H Pulse Oximetry 96 Intake & Output 01/16/18 01/17/18 01/17/18 18:59 06:59 18:59 Intake Total 750 / 750 480 / 480 Output Total 1000 / 1000 Balance -250 / -250 480 / 480 Weight 80.3 kg Intake: IV 300 / 300 Ofirmev Inj 1,000 mg In 100 ml 100 / 100 @ 400 mls/hr IV.SIG Q6H PRN Rx# :[id number] KCl 20 mEq Premix Inj 20 meq In 200 / 200 100 ml @ 50 mls/hr IV.SIG Q2H PRN Rx#:[id number] Oral 450 / 450 480 / 480 Output: Urine 1000 / 1000 Other: # Voids 6 5 Date of Last Bowel Movement 01/16/18 01/17/18 # Bowel Movements 2 1 Result Diagrams: 01/17/18 03:17 01/17/18 03:17 Disinhibition Score: 19.25 Aggression Score: 14.00 Lability Score: 14.00 Agitated Behavior Total Score: 17 Assessment and Plan Plan: Monitor patient for DT Continue neuro protection Monitor patient's sodium on hypertonic saline Out of bed chemical DVT prophylaxis start tomorrow urine sodium,osmolality - Attestation: Critical care time 32 minutes
[2018-01-18] MEDS: Sodium Chloride 1 GM Tablet PO SCH ×3 (03:35→17:52)
[2018-01-18 05:16] LABS: Baso % (Auto) 0.5 % (0.0-2.0); Eos # (Auto) 0.3 th/mm3 (0.0-0.4); Eos % (Auto) 2.6 % (0.0-4.0); Hematocrit 37.7 % (35.0-46.0); Hemoglobin 13.1 gm/dL (11.6-15.3); Lymph # (Auto) 1.9 th/mm3 (1.0-4.8); Lymph % (Auto) 19.5 % (9.0-44.0); Mean Corpuscular HGB Conc 34.7 % (32.0-36.0); Mean Corpuscular Hemoglobin 33.7 pg (27.0-34.0); Mean Platelet Volume 7.1 fL (7.0-11.0); Mono # (Auto) 1.7 th/mm3 (0.0-0.9); Mono % (Auto) 17.6 % (0.0-8.0); Neut # (Auto) 5.8 th/mm3 (1.8-7.7); Neut % (Auto) 59.8 % (16.0-70.0); Platelet Count 355 th/mm3 (150-450); Red Blood Count 3.89 mil/mm3 (4.00-5.30); Red Cell Distribution Width 12.6 % (11.6-17.2); White Blood Count 9.7 th/mm3 (4.0-11.0)
[2018-01-18 05:35] LABS: Calcium 8.7 mg/dL (8.5-10.1); Carbon Dioxide 26.8 meq/L (21.0-32.0); Potassium 3.4 meq/L (3.5-5.1)
[2018-01-18 08:00] LABS: Lymphocytes 15 % (9-44); Monocytes 13 % (0-8); Myelocytes 1 % (0-0); Platelet Estimate Normal (Normal); Platelet Morphology Normal (Normal); Promyelocyte 2 % (0-0); Toxic Granulation 1+
[2018-01-18] MEDS: Lisinopril 10 MG Tablet PO SCH ×2 (08:47→20:57)
[2018-01-18] MEDS: amLODIPine 5 MG Tablet PO SCH (08:47)
[2018-01-18] MEDS: levETIRAcetam 500 MG Tablet PO SCH ×2 (08:47→20:58)
[2018-01-18] MEDS: diazePAM 5 MG Tablet PO SCH ×3 (08:48→19:00)
[2018-01-18] MEDS: Senna/Docusate Sodium 8.6/50 MG Tablet PO SCH ×2 (08:48→20:57)
[2018-01-18] MEDS: Folic Acid 1 MG Tablet PO SCH (08:48)
[2018-01-18] MEDS: Pantoprazole Inj 40 MG Vial IV.PUSH SCH (08:49)
[2018-01-18] MEDS: Enoxaparin Inj 40 MG/0.4 ML Syringe SQ SCH (08:50)
[2018-01-18] MEDS: Methocarbamol 500 MG Tablet PO SCH ×3 (09:26→22:05)
[2018-01-18] MEDS: Chlorhexidine Gluconate 2% 1 Pack (2 Cloths) TOPICAL SCH (09:27)
--- NOTE | 2018-01-18 14:31 | P.PN ---
Subjective Interval history: Reports [place], no further nausea Ambulating unassisted to the restroom Na+ level 129 today Physical Exam Vital signs: Vital Signs 01/17/18 14:31 01/17/18 15:00 01/17/18 15:31 Temperature Pulse Rate 67 62 63 Respiratory Rate 23 31 H 25 H Blood Pressure 137/91 H 123/79 Pulse Oximetry 94 L 94 L 94 L 01/17/18 16:00 01/17/18 16:31 01/17/18 17:00 Temperature 98.2 F Pulse Rate 63 65 67 Respiratory Rate 23 15 18 Blood Pressure 137/93 H Pulse Oximetry 94 L 96 94 L 01/17/18 17:31 01/17/18 18:00 01/17/18 18:31 Temperature Pulse Rate 66 68 68 Respiratory Rate 12 15 23 Blood Pressure 145/86 H 131/85 Pulse Oximetry 93 L 96 95 01/17/18 19:00 01/17/18 19:31 01/17/18 20:00 Temperature Pulse Rate 65 64 Respiratory Rate 23 22 Blood Pressure 159/87 H Pulse Oximetry 96 97 01/17/18 21:00 01/17/18 22:00 01/17/18 23:00 Temperature Pulse Rate 68 71 66 Respiratory Rate 24 22 24 Blood Pressure Pulse Oximetry 01/18/18 00:00 01/18/18 00:04 01/18/18 00:08 Temperature Pulse Rate 66 66 70 Respiratory Rate 21 22 Blood Pressure 151/97 H 137/98 H Pulse Oximetry 01/18/18 00:35 01/18/18 04:00 01/18/18 08:00 Temperature 98.3 F 98.1 F 98.2 F Pulse Rate 64 61 59 L Respiratory Rate 20 17 20 Blood Pressure 140/85 154/99 H 124/84 Pulse Oximetry 97 92 L 94 L 01/18/18 12:00 Temperature 97.8 F Pulse Rate 67 Respiratory Rate 20 Blood Pressure 120/87 Pulse Oximetry 96 Intake & Output 01/17/18 01/18/18 01/18/18 18:59 06:59 18:59 Intake Total 700 / 700 120 / 120 Output Total 925 / 925 Balance -225 / -225 120 / 120 Weight 81.5 kg Intake: Oral 700 / 700 120 / 120 Output: Urine 925 / 925 Other: # Voids 5 1 Date of Last Bowel Movement 01/17/18 01/17/18 # Bowel Movements 0 Narrative: GENERAL: 57-year-old well-nourished, well developed female sitting up in bed. SKIN: Warm and dry. Bilateral raccoon's eyes noted. HEAD: Normocephalic. CARDIOVASCULAR: Regular rate and rhythm. RESPIRATORY: No accessory muscle use. Lungs clear to auscultation bilaterally. GASTROINTESTINAL: Abdomen soft, non-tender, nondistended. + BS. MUSCULOSKELETAL: Extremities without cyanosis, or edema. MAEW, + perfused NEUROLOGICAL: Awake and alert. Normal speech. - Urinary Catheter Management Indwelling Urethral Catheter Cath placed during this visit: yes, but has since been removed by the nurse Reason for continuing: Decision to DC catheter Insertion date: 01/12/18 Insertion time: 23:30 Removal date: 01/13/18 Removal time: 12:00 Results - Labs CBC & Chem 7: 01/18/18 04:14 01/18/18 04:14 Laboratory Results - last 24 hr 01/18/18 01/18/18 04:14 04:14 WBC 9.7 RBC 3.89 L Hgb 13.1 Hct 37.7 MCV 97.0 MCH 33.7 MCHC 34.7 RDW 12.6 Plt Count 355 MPV 7.1 Prelim Diff (Auto) Slide review pending Neut % (Auto) 59.8 Lymph % (Auto) 19.5 [place] % (Auto) 17.6 H Eos % (Auto) 2.6 Baso % (Auto) 0.5 Neut # (Auto) 5.8 Lymph # (Auto) 1.9 [place] # (Auto) 1.7 H Eos # (Auto) 0.3 Baso # (Auto) 0.0 WBC Differential Manual diff final Seg Neuts % (Manual) 69 Lymphocytes % (Manual) 15 Monocytes % (Manual) 13 H Myelocytes % (Man) 1 H Promyelocytes % (Man) 2 H Abs Neuts (Manual) 7.0 Differential Comment . Toxic Granulation 1+ H Platelet Estimate Normal Platelet Morphology Normal Sodium 129 L Potassium 3.4 L Chloride 94 L Carbon Dioxide 26.8 Anion Gap 8 BUN 17 Creatinine 0.73 Estimated GFR 82 L Random Glucose 104 Calcium 8.7 Assessment and Plan - Plan [place]: Returned from AA meeting, intoxicated and fell from the standing position. ?LOC. GCS = 12. ETOH = 323 INJURIES: Bifrontal, left temporal IPH SDH R frontal, R parietal, L temporal Skull base fx extending to bilat sphenoid bones and the left occiput Nasal fx (non-op) PMHx: ETOH abuse Bifrontal, left temporal IPH, SDH R frontal, R parietal, L temporal, Skull base fx extending to bilat sphenoid bones and the left occiput Neurosurgery consulted Nonoperative management 01/14: CT head-Bifrontal IPH with increased edema, SAH is decreased in size, SDH stable Monitor electrolytes, sodium today 129 Lasix 40 mg x1 today Na+ Chloride tabs 1 gram q8h Serial neuro checks PO Keppra Neuropsychology consulted Pain control for headache D/W Dr Fu, cleared for DC Hypertension Propranolol 20mg q8h Norvasc 5mg QD Clonidine patch 0.2mg Q7D Lisinopril 10mg BID Procardia XL 60mg QD BP improved today EtOH abuse Seizure precautions Valium taper PO Keppra Counseled on alcohol cessation Nasal fx OMFS consulted Nonoperative management Pain control Plan of care discussed with patient at bedside. Collaborating Trauma surgeon agrees with plan. Case management consulted to assist with discharge planning. Plan to discharge tomorrow if sodium remains stable.
[2018-01-18] MEDS: Mupirocin 2% Nasal Oint Topical Syringe EACH NARE SCH ×2 (16:01→21:02)
[2018-01-19] MEDS: Sodium Chloride 1 GM Tablet PO SCH ×4 (02:38→22:01)
[2018-01-19 03:34] LABS: Hematocrit 40.6 % (35.0-46.0); Hemoglobin 13.9 gm/dL (11.6-15.3); Mean Corpuscular HGB Conc 34.2 % (32.0-36.0); Mean Corpuscular Hemoglobin 32.5 pg (27.0-34.0); Mean Corpuscular Volume 95.2 fL (80.0-100.0); Platelet Count 429 th/mm3 (150-450); Red Blood Count 4.27 mil/mm3 (4.00-5.30); Red Cell Distribution Width 12.4 % (11.6-17.2); White Blood Count 10.2 th/mm3 (4.0-11.0)
[2018-01-19 03:48] LABS: Anion Gap 7 meq/L (5-15); Blood Urea Nitrogen 16 mg/dL (7-18); Calcium 8.5 mg/dL (8.5-10.1); Carbon Dioxide 26.6 meq/L (21.0-32.0); Chloride 94 meq/L (98-107); Glomerular Filtration Rate Greater Than 89 mL/min (>89); Glucose,Random 105 mg/dL (74-106); Potassium 3.8 meq/L (3.5-5.1); Sodium 128 meq/L (136-145)
[2018-01-19] MEDS: Methocarbamol 500 MG Tablet PO SCH ×3 (06:18→22:01)
--- NOTE | 2018-01-19 08:22 | P.PNNPSY ---
- Behavior Intact: Impulsive/agitated - Cognitive Mild: Cognitive, Attention/concentration, Confused/orientation, Insight/ awareness, Judgment/problem solving, Memory - Psychosocial Mild: Psychosocial, Family/other adjustment, Realistic expectation - Progress Notes/Response to Treatment Contents of Sessions: Adjustment, Level of consciousness Time with Patient: 15 minutes Premorbid Psychological Status: Premorbid Cognitive, Emotional and Behavioral Status: Tenuous. The patient has high school years of education and a sporadic work history prior to this injury. The patient has prior psychiatric difficulties, as described above. Substance abuse history includes ETOH dependence. Behavioral Reactions of Patient and Family/Support System: Tenuous. The patients family is experiencing ongoing issues of adjustment given the nature of the injury, and this aspect of recovery will require ongoing monitoring. Emotional/Behavioral Status of Patient and Family/Support System: Tenuous. Pertinent issues, if appropriate to this patients clinical care, are described in detail above. Maximizing Acute Care Outcome: It is recommended that the patient be monitored for emergent behavioral impulsivity as the medical condition evolves. This patients neuropathological challenges may limit rehabilitation potential going forward, and these challenges will require specialized therapeutic skills to maximize outcome. At this point in the recovery process, the patient does have cognitive capacity as the patient is able to understand a situation and its likely consequences, and she is able to manipulate information rationally. Cognitive capacity will be assessed throughout the recovery process. Anticipated Problems: Ongoing areas of concern will include behavioral impulsivity, lack of insight and judgment, which is expected to improve with time and treatment. Treatment Plan: This clinician will continue to follow with you throughout the course of this patients critical care treatment, and I will be available to meet with the patients family/support system to facilitate their understanding and the ongoing care of their family member. The goals of neuropsychological intervention shall be both educational and supportive to the family/support system as is deemed clinically appropriate. [place] COG Scale: Level Disinhibition Score: 14.00 Aggression Score: 14.00 Lability Score: 14.00 Agitated Behavior Total Score: 14 Impression: Unknown age woman s/p TBI 2T fall on 01/12/2018, and complicated by alcohol dependence, in controlled environment. Progress Note Narrative: PTD 7. She is day 3 of Valium Taper with Keppra adjunct for [place]. She remains calm and conversant. No issues of agitated/restlessness reported. ABS = 14 (14, 14,14), OAWS = 0, CIWA-Ar = 0. She is [place] at least. NS cleared for DC. I will follow. - Diagnosis (1) Major neurocognitive disorder as late effect of traumatic brain injury with behavioral disturbance Status: Acute (2) Alcohol dependence in controlled environment Status: Acute
[2018-01-19] MEDS: amLODIPine 5 MG Tablet PO SCH (08:25)
[2018-01-19] MEDS: Enoxaparin Inj 40 MG/0.4 ML Syringe SQ SCH (08:25)
[2018-01-19] MEDS: Senna/Docusate Sodium 8.6/50 MG Tablet PO SCH ×2 (08:25→20:26)
[2018-01-19] MEDS: Folic Acid 1 MG Tablet PO SCH (08:25)
[2018-01-19] MEDS: levETIRAcetam 500 MG Tablet PO SCH ×2 (08:26→20:26)
[2018-01-19] MEDS: Lisinopril 10 MG Tablet PO SCH ×2 (08:27→20:26)
[2018-01-19] MEDS: diazePAM 5 MG Tablet PO SCH ×2 (08:27→20:27)
[2018-01-19] MEDS: Mupirocin 2% Nasal Oint Topical Syringe EACH NARE SCH ×2 (08:30→20:27)
[2018-01-19] MEDS: Pantoprazole Inj 40 MG Vial IV.PUSH SCH (08:32)
--- NOTE | 2018-01-19 13:30 | P.PN ---
Subjective Interval history: Trauma PTD: 7 Patient sitting up in bed. Eating lunch. No complaints offered. Patient states that her headache is better. Patient states she does not have a primary care physician. "I use my [employer] for checkups." Patient states she lives with her and her 17-year-old daughter. "So, I am not going home today?" "So all these x-rays are done? There is no problem with my neck?" Physical Exam Vital signs: Vital Signs 01/18/18 16:00 01/18/18 19:54 01/18/18 20:00 Temperature 98.0 F 97.5 F L Pulse Rate 74 62 Respiratory Rate 20 18 Blood Pressure 137/94 H 126/84 Pulse Oximetry 94 L 97 97 01/18/18 21:30 01/18/18 23:44 01/19/18 03:42 Temperature 97.9 F 97.6 F Pulse Rate 64 61 Respiratory Rate 17 17 17 Blood Pressure 124/79 113/78 Pulse Oximetry 95 96 01/19/18 08:00 01/19/18 11:59 Temperature 98.1 F 98.2 F Pulse Rate 64 58 L Respiratory Rate 20 18 Blood Pressure 136/94 H 116/81 Pulse Oximetry 95 95 Intake & Output 01/18/18 01/19/18 01/19/18 18:59 06:59 18:59 Intake Total 720 / 720 480 / 480 100 / 100 Balance 720 / 720 480 / 480 100 / 100 Weight 81.5 kg Intake: IV 100 / 100 Ofirmev Inj 1,000 mg In 100 ml 100 / 100 @ 400 mls/hr IV.SIG Q6H PRN Rx# :[id number] Oral 720 / 720 480 / 480 Other: # Voids 3 1 Date of Last Bowel Movement 01/17/18 01/17/18 # Bowel Movements 0 Narrative: GENERAL: This is a 57-year-old female sitting up in bed. No distress noted. SKIN: Warm and dry. HEAD: Atraumatic. Normocephalic. EYES: PERRLA. Left eye ecchymosis noted. ENT: No nasal bleeding or discharge. Mucous membranes pink and moist. NECK: Trachea midline. No JVD. CARDIOVASCULAR: Regular rate and rhythm. RESPIRATORY: No accessory muscle use. Lungs are clear to auscultation. Breath sounds equal bilaterally. No distress or dyspnea. GASTROINTESTINAL: BS + x 4 quads. Abdomen soft, non-tender, nondistended. MUSCULOSKELETAL: Extremities without cyanosis, or edema. + peripheral pulses x 4 extremities. Warm with good capillary refill and sensation. MAEW. NEUROLOGICAL: Awake and alert. Normal speech and pattern. - Urinary Catheter Management Indwelling Urethral Catheter Cath placed during this visit: yes, but has since been removed by the nurse Reason for continuing: Decision to DC catheter Insertion date: 01/12/18 Insertion time: 23:30 Removal date: 01/13/18 Removal time: 12:00 Results - Labs CBC & Chem 7: 01/19/18 02:39 01/19/18 02:39 Laboratory Results - last 24 hr 01/19/18 01/19/18 02:39 02:39 WBC 10.2 RBC 4.27 Hgb 13.9 Hct 40.6 MCV 95.2 MCH 32.5 MCHC 34.2 RDW 12.4 Plt Count 429 MPV 7.0 Sodium 128 L Potassium 3.8 Chloride 94 L Carbon Dioxide 26.6 Anion Gap 7 BUN 16 Creatinine 0.63 Estimated GFR Greater than 89 Random Glucose 105 Calcium 8.5 Magnesium 2.0 Assessment and Plan - Assessment (1) Closed skull fracture Code(s): S02.91XA - Unspecified fracture of skull, initial encounter for closed fracture Status: Acute (2) Intracranial hemorrhage Code(s): I62.9 - Nontraumatic intracranial hemorrhage, unspecified Status: Acute (3) Subdural hematoma, acute Code(s): S06.5X9A - Traumatic subdural hemorrhage with loss of consciousness of unspecified duration, initial encounter Status: Acute (4) Major neurocognitive disorder as late effect of traumatic brain injury with behavioral disturbance Code(s): S06.9X9S - Unspecified intracranial injury with loss of consciousness of unspecified duration, sequela; F02.81 - Dementia in other diseases classified elsewhere with behavioral disturbance Status: Acute (5) Alcohol dependence in controlled environment Code(s): F10.20 - Alcohol dependence, uncomplicated Status: Acute - Plan [place]: This is a 57-year old female who sustained a fall. She returned from an AA meeting, and she was intoxicated and fell from a standing position. Questionable LOC. GCS 12. EtOH 323. INJURIES: Bilateral frontal parenchymal contusions LEFT temporal parenchymal contusions RIGHT frontal SDH (4mm) RIGHT parietal SDH (3mm) LEFT temporal SDH (3mm) Skull base fx extending to bilat sphenoid bones LEFT occipital bone fx LEFT Nasal fx (non-op) 8 mm nonspecific circumscribed lytic lesion at the C5 vertebral body. PMHx: ETOH abuse Procedures: Consults: Hospitalist. Neurosurgery. Neuropsych. OMFS. Case management. Diet: Regular diet. Tolerating po diet. Encourage good po intake with each meal. Pulmonary: Encourage good pulmonary toileting. IS at bedside and pt encouraged to use. Rationale for use explained to patient, and verbalized understanding. PAIN Management: Oxycodone 5mg q4h. Robaxin 500mg q8h. IV Ofirmev IV PRN. EtOH: Valium 5 mg taper (will complete 01/23) Haldol 4 mg q 4h PRN. Activity: OOB. PT and OT ordered. GI prophylaxis: Protonix 40 mg IV. Bowel regimen: Meri-colace. Lactulose PRN. LBM 01/17 DVT prophylaxis: Mechanical VTE with SCDs. Chemical management with Lovenox 40 mg QD SQ. DC Planning: Case management consulted for assistance with final discharge disposition. Emotional support provided to patient and family at bedside and plan of care discussed. Discussed with RN at bedside. Discussed pt condition and plan of care with collaborating trauma surgeon. Patient is hemodynamically stable and being managed on the med/surg floor. The trauma team will round each day, and evaluate plan of care on a daily basis. Bilateral frontal parenchymal contusions LEFT temporal parenchymal contusions RIGHT frontal SDH (4mm) RIGHT parietal SDH (3mm) LEFT temporal SDH (3mm) Skull base fx extending to bilat sphenoid bones LEFT occipital bone fx LEFT Nasal fx (non-op) Neurosurgery consulted and assisting in management and care OMFS consulted and assisting in management and care Nasal fractures are nonoperative -follow-up outpatient Supportive care 01/14: CT head-Bifrontal IPH with increased edema, SAH is decreased in size, SDH stable. 01/13: CT head- Worsening SDH w/ midline shift 01/13: MRI neck- neg Serial neuro checks CT brain for any change in neurological status Currently patient remains alert and oriented Pain management Seizure precautions Seizure prophylaxis -Keppra po Encourage out of bed PT and OT ordered Bowel regimen Lovenox for DVT prophylaxis ETOH Hyponatremia Sodium depletion due to alcohol Hospitalist consulted and assisting in management and care Supportive care Encouraged abstaining from alcohol Seizure precautions Seizure prophylaxis -Keppra p.o. Multivitamins NA = 128 Sodium correction slowly (4-8/day) Salt tabs increased to 2 g every 8 hours Follow-up labs in the morning HTN Hospitalist consult to assist in medical management Vital signs every 4 hours and as needed Propranolol 20mg q8h. Norvasc 5mg QD, Clonidine patch 0.2mg. Lisinopril 10mg BID. Procardia XL 60mg QD (1) Closed skull fracture Qualifiers: Encounter type: initial encounter Skull bone/location: occipital bone Occipital fracture type: unspecified fracture of occiput Laterality: left Qualified Code(s): S02.119A - Unspecified fracture of occiput, initial encounter for closed fracture
--- NOTE | 2018-01-19 15:51 | P.CON ---
History of Present Illness Reason for Consult: Medical management Primary Care Provider: UNKNOWN Chief Complaint: Trauma History of Present Illness: 57 years old female with a PMHx of HTN, chronic Alcohol abuse was admitted to the Trauma service on 01/12/18 as for fall resulting in ICH, multiple fractures. Patient has a history of 20+years of alcohol abuse and states her drinking has gotten worsened since her Mother was diagnosed with Alzheimer's disease. Patient was caring for her Mother until her for the past 17 years . [facility] was consulted for Chronic Hyponatremia and Hypertension Review of Systems All other systems reviewed negative except as stated in HPI [facility] - History History Provided By: Significant Other - Medical History Medical History: Medical History (Last Reviewed 01/19/18 @ 07:51 by Betty Hilton) History of MRSA infection Onset Date: ~01/12/18 - Family History Family History: Family History (Last Updated 01/19/18 @ 15:48 by Catalino Johns MD) Other Alzheimer disease - Tobacco History Second Hand Smoke Exposure: No Smoking Status: Never smoker - Alcohol History How Often Do You Have a Drink Containing Alcohol: 4 or more times a week - Substance Use History Substance History: No History of Abuse - Travel History Recent Travel in the [facility] Within the Last 8 Weeks: No - Immunization History Tetanus Immunization: Unable to Assess Hx Influenza Vaccine This Season: No Medications and Allergies Active Medications: Active Medications Amlodipine Besylate (Norvasc) 5 mg PO DAILY [facility] Last Admin: 01/19/18 08:25 Dose: 5 mg Bacitracin (Baciguent Oint) 1 applicatio TOPICAL BID [facility] Last Admin: 01/19/18 08:30 Dose: 1 applicatio Clonidine HCl (Catapress-Tts 0.2 Mg Patch.7d) 1 patch T-DERMAL Q7D [facility] Last Admin: 01/16/18 13:06 Dose: 1 patch Dexamethasone Sodium Phosphate (Decadron Inj) 2 mg IV.PUSH Q12HR PRN PRN Reason: NAUSEA OR VOMITING Diazepam (Valium) 5 mg PO BID [facility] Stop: 01/19/18 21:01 Last Admin: 01/19/18 08:27 Dose: Not Given Diazepam (Valium) 5 mg PO HS [facility] Stop: 01/23/18 21:01 Enalaprilat (Vasotec Inj) 1.25 mg IV.PUSH Q8H PRN PRN Reason: Blood pressure 180/95 Last Admin: 01/16/18 06:22 Dose: 1.25 mg Enoxaparin Sodium (Lovenox Inj) 40 mg SQ DAILY [facility] Last Admin: 01/19/18 08:25 Dose: 40 mg Escitalopram Oxalate (Lexapro) 20 mg PO BID [facility] Last Admin: 01/19/18 08:25 Dose: 20 mg Folic Acid (Folic Acid) 1 mg PO DAILY [facility] Last Admin: 01/19/18 08:25 Dose: 1 mg Haloperidol Lactate (Haldol Inj) 4 mg IV.PUSH Q4H PRN PRN Reason: AGITATION Last Admin: 01/16/18 07:53 Dose: 4 mg Acetaminophen (Ofirmev Inj) 1,000 mg in 100 mls @ 400 mls/hr IV.SIG Q6H PRN PRN Reason: HEADACHE Last Infusion: 01/19/18 09:11 Dose: Infused Lactulose (Lactulose Liq) 30 ml PO DAILY PRN PRN Reason: CONSTIPATION Last Admin: 01/13/18 17:38 Dose: 30 ml Levetiracetam (Keppra) 750 mg PO BID [facility] Last Admin: 01/19/18 08:26 Dose: 750 mg Lisinopril (Prinivil) 10 mg PO BID [facility] Last Admin: 01/19/18 08:27 Dose: 10 mg Methocarbamol (Robaxin) 500 mg PO Q8HR [facility] Last Admin: 01/19/18 14:18 Dose: 500 mg Multivitamins (Theragran) 1 tab PO DAILY [facility] Last Admin: 01/19/18 08:26 Dose: 1 tab Mupirocin (Bactroban 2% Nasal Oint) 1 applicatio EACH NARE BID [facility] Stop: 01/23/18 10:44 Last Admin: 01/19/18 08:30 Dose: 1 applicatio Nifedipine (Procardia Xl) 60 mg PO DAILY [facility] Last Admin: 01/19/18 08:29 Dose: 60 mg Ondansetron HCl (Zofran Inj) 4 mg IV.PUSH Q6H PRN PRN Reason: FOR NAUSEA AND VOMITING Last Admin: 01/16/18 05:56 Dose: 4 mg Oxycodone HCl (Roxicodone) 5 mg PO Q4H PRN PRN Reason: BREAKTHROUGH PAIN Last Admin: 01/16/18 05:56 Dose: 5 mg Pantoprazole Sodium (Protonix Inj) 40 mg IV.PUSH DAILY [facility] Last Admin: 01/19/18 08:32 Dose: 40 mg Patch Removal (Remove Old Patch) 1 each T-DERMAL Q7D [facility] Prochlorperazine Edisylate (Compazine Inj) 5 mg IV.PUSH Q12H PRN PRN Reason: NAUSEA OR VOMITING Propranolol HCl (Inderal) 20 mg PO Q8H [facility] Last Admin: 01/19/18 09:12 Dose: 20 mg Senna/Docusate Sodium (Meri-Colace) 1 tab PO BID [facility] Last Admin: 01/19/18 08:25 Dose: 1 tab Sodium Chloride (Ns Flush) 2 ml IV.FLUSH UNSCH PRN PRN Reason: FLUSH AFTER USING IV ACCESS Last Admin: 01/17/18 20:37 Dose: 2 ml Sodium Chloride (Sodium Chloride) 2 gm PO Q8H [facility] Last Admin: 01/19/18 14:23 Dose: 2 gm Thiamine HCl (Vitamin B1) 100 mg PO BID [facility] Last Admin: 01/19/18 08:26 Dose: 100 mg Allergies Allergy/AdvReac Type Severity Reaction Status Date / Time No Known Allergies Allergy Verified 01/12/18 22:46 Home Medications Medication Instructions Recorded Confirmed Type Effexor XR DAILY 01/13/18 History clonazepam 01/13/18 History escitalopram oxalate BID 01/13/18 History Physical Exam Vital signs: Vital Signs 01/18/18 16:00 01/18/18 19:54 01/18/18 20:00 Temperature 98.0 F 97.5 F L Pulse Rate 74 62 Respiratory Rate 20 18 Blood Pressure 137/94 H 126/84 Pulse Oximetry 94 L 97 97 01/18/18 21:30 01/18/18 23:44 01/19/18 03:42 Temperature 97.9 F 97.6 F Pulse Rate 64 61 Respiratory Rate 17 17 17 Blood Pressure 124/79 113/78 Pulse Oximetry 95 96 01/19/18 08:00 01/19/18 11:59 Temperature 98.1 F 98.2 F Pulse Rate 64 58 L Respiratory Rate 20 18 Blood Pressure 136/94 H 116/81 Pulse Oximetry 95 95 Intake & Output 01/18/18 01/19/18 01/19/18 18:59 06:59 18:59 Intake Total 720 / 720 480 / 480 100 / 100 Balance 720 / 720 480 / 480 100 / 100 Weight 81.5 kg Intake: IV 100 / 100 Ofirmev Inj 1,000 mg In 100 ml 100 / 100 @ 400 mls/hr IV.SIG Q6H PRN Rx# :[id number] Oral 720 / 720 480 / 480 Other: # Voids 3 1 Date of Last Bowel Movement 01/17/18 01/17/18 # Bowel Movements 0 Narrative: GENERAL: NAD SKIN: Warm and dry. HEAD: Atraumatic. Normocephalic. EYES: Pupils equal and round. raccoon left eye ENT: No nasal bleeding or discharge. Mucous membranes pink and moist. NECK: Trachea midline. No JVD. CARDIOVASCULAR: Regular rate and rhythm. RESPIRATORY: No accessory muscle use. Clear to auscultation. Breath sounds equal bilaterally. GASTROINTESTINAL: Abdomen soft, non-tender, nondistended. Hepatic and splenic margins not palpable. MUSCULOSKELETAL: Extremities without clubbing, cyanosis, or edema. No obvious deformities. NEUROLOGICAL: Awake and alert. No obvious cranial nerve deficits. Motor grossly within normal limits. Five out of 5 muscle strength in the arms and legs. Normal speech. PSYCHIATRIC: Appropriate mood and affect; insight and judgment normal. - Urinary Catheter Management Indwelling Urethral Catheter Cath placed during this visit: yes, but has since been removed by the nurse Reason for continuing: Decision to DC catheter Insertion date: 01/12/18 Insertion time: 23:30 Removal date: 01/13/18 Removal time: 12:00 Results - Labs CBC & Chem 7: 01/19/18 02:39 01/19/18 02:39 Labs: Laboratory Results - last 24 hr 01/19/18 01/19/18 02:39 02:39 WBC 10.2 RBC 4.27 Hgb 13.9 Hct 40.6 MCV 95.2 MCH 32.5 MCHC 34.2 RDW 12.4 Plt Count 429 MPV 7.0 Sodium 128 L Potassium 3.8 Chloride 94 L Carbon Dioxide 26.6 Anion Gap 7 BUN 16 Creatinine 0.63 Estimated GFR Greater than 89 Random Glucose 105 Calcium 8.5 Magnesium 2.0 Assessment and Plan - Plan 57 years old female with Bilateral frontal parenchymal contusions LEFT temporal parenchymal contusions RIGHT frontal SDH ,RIGHT parietal SDH ,LEFT temporal SDH Skull base fx extending to bilat sphenoid bones LEFT occipital bone fx LEFT Nasal fx (non-op) Management per Trauma Surgery Continue with Seizure prophylaxis with [facility] Neuro check PT/OT to treat and eval History of chronic alcohol abuse and dependence Alcohol cessation counselling was provided Continue with CIWA protocol, renealy pack Hyponatremia of beer potomania 2/2 from chronic alcohol abuse serum Osmolality-low Currently on Salt tablet by the primary Team Monitor Na and consider Samsca Hypertension Normotensive on: Propranolol 20mg q8h. Norvasc 5mg QD, Clonidine patch 0.2mg. Lisinopril 10mg BID. Procardia XL 60mg QD DVT prophylaxis: Lovenox Thank you for this consultation
[2018-01-20 04:21] LABS: Calcium 8.5 mg/dL (8.5-10.1); Carbon Dioxide 24.7 meq/L (21.0-32.0)
[2018-01-20] MEDS: Sodium Chloride 1 GM Tablet PO SCH (05:54)
[2018-01-20] MEDS: Methocarbamol 500 MG Tablet PO SCH ×3 (05:54→22:21)
--- NOTE | 2018-01-20 07:13 | P.PNNPSY ---
- Progress Notes/Response to Treatment Contents of Sessions: Adjustment, Level of consciousness Time with Patient: 15 minutes Premorbid Psychological Status: Premorbid Cognitive, Emotional and Behavioral Status: Tenuous. The patient has high school years of education and a sporadic work history prior to this injury. The patient has prior psychiatric difficulties, as described above. Substance abuse history includes ETOH dependence. Behavioral Reactions of Patient and Family/Support System: Tenuous. The patients family is experiencing ongoing issues of adjustment given the nature of the injury, and this aspect of recovery will require ongoing monitoring. Emotional/Behavioral Status of Patient and Family/Support System: Tenuous. Pertinent issues, if appropriate to this patients clinical care, are described in detail above. Maximizing Acute Care Outcome: It is recommended that the patient be monitored for emergent behavioral impulsivity as the medical condition evolves. This patients neuropathological challenges may limit rehabilitation potential going forward, and these challenges will require specialized therapeutic skills to maximize outcome. At this point in the recovery process, the patient does have cognitive capacity as the patient is able to understand a situation and its likely consequences, and she is able to manipulate information rationally. Cognitive capacity will be assessed throughout the recovery process. Anticipated Problems: Ongoing areas of concern will include behavioral impulsivity, lack of insight and judgment, which is expected to improve with time and treatment. Treatment Plan: This clinician will continue to follow with you throughout the course of this patients critical care treatment, and I will be available to meet with the patients family/support system to facilitate their understanding and the ongoing care of their family member. The goals of neuropsychological intervention shall be both educational and supportive to the family/support system as is deemed clinically appropriate. [place] COG Scale: Level Disinhibition Score: 14.00 Aggression Score: 14.00 Lability Score: 14.00 Agitated Behavior Total Score: 14 Impression: Unknown age woman s/p TBI 2T fall on 01/12/2018, and complicated by alcohol dependence, in controlled environment. Progress Note Narrative: PTD 8. The patient is neurobehaviorally managed. ARLEY managed with Valium taper with Keppra adjunct, and this is day 5 of protocol. ABS = 14, OAWS = 0, and CIWA-Ar = 0. She is [place] . I will follow. - Diagnosis (1) Major neurocognitive disorder as late effect of traumatic brain injury with behavioral disturbance Status: Acute (2) Alcohol dependence in controlled environment Status: Acute
[2018-01-20] MEDS: Enoxaparin Inj 40 MG/0.4 ML Syringe SQ SCH (10:04)
[2018-01-20] MEDS: Folic Acid 1 MG Tablet PO SCH (10:05)
[2018-01-20] MEDS: amLODIPine 5 MG Tablet PO SCH (10:05)
[2018-01-20] MEDS: Senna/Docusate Sodium 8.6/50 MG Tablet PO SCH ×2 (10:05→22:23)
[2018-01-20] MEDS: levETIRAcetam 500 MG Tablet PO SCH ×2 (10:06→22:23)
[2018-01-20] MEDS: Mupirocin 2% Nasal Oint Topical Syringe EACH NARE SCH ×2 (10:06→22:24)
[2018-01-20] MEDS: Pantoprazole Inj 40 MG Vial IV.PUSH SCH (10:07)
[2018-01-20] MEDS: Lisinopril 10 MG Tablet PO SCH ×2 (10:10→22:25)
--- NOTE | 2018-01-20 11:15 | P.CONREH ---
History of Present Illness Service: Physical medicine and rehabilitation Consult date: 01/20/18 Reason for Consult: Comprehensive rehabilitation evaluation Primary Care Provider: UNKNOWN Chief Complaint: Trauma Review of Systems Constitutional: Reports headache(s) Eyes: Denies double vision Ears, Nose, Mouth, and Throat: Denies abnormal hearing, Denies difficulty swallowing, Denies dizziness Cardiovascular: Denies chest pain Respiratory: Denies shortness of breath Gastrointestinal: Reports constipation, Denies abdominal pain Genitourinary: Reports urinary urgency, Denies urinary incontinence Musculoskeletal: Denies muscle weakness Skin/Breast: Denies rash Neurologic: Denies tingling Psychiatric: Denies confusion Endocrine: Denies increased thirst Hematologic/Lymphatic: Denies easy bruising PMFSH - History History Provided By: Significant Other - Medical History Medical History: Medical History (Last Reviewed 01/19/18 @ 07:51 by Betty Hilton) History of MRSA infection Onset Date: ~01/12/18 - Family History Family History: Family History (Last Updated 01/19/18 @ 15:48 by Catalino Johns MD) Other Alzheimer disease - Tobacco History Second Hand Smoke Exposure: No Smoking Status: Never smoker - Alcohol History How Often Do You Have a Drink Containing Alcohol: 4 or more times a week - Substance Use History Substance History: No History of Abuse - Travel History Recent Travel in the [facility] Within the Last 8 Weeks: No - Immunization History Tetanus Immunization: Unable to Assess Hx Influenza Vaccine This Season: No Medications and Allergies Active Medications: Active Medications Acetaminophen (Tylenol) 650 mg PO Q6H PRN PRN Reason: USE 1ST FOR HEADACHE Amlodipine Besylate (Norvasc) 5 mg PO DAILY [facility] Last Admin: 01/20/18 10:05 Dose: 5 mg Bacitracin (Baciguent Oint) 1 applicatio TOPICAL BID [facility] Last Admin: 01/20/18 10:06 Dose: 1 applicatio Clonidine HCl (Catapress-Tts 0.2 Mg Patch.7d) 1 patch T-DERMAL Q7D [facility] Last Admin: 01/16/18 13:06 Dose: 1 patch Dexamethasone Sodium Phosphate (Decadron Inj) 2 mg IV.PUSH Q12HR PRN PRN Reason: NAUSEA OR VOMITING Diazepam (Valium) 5 mg PO HS [facility] Stop: 01/23/18 21:01 Enalaprilat (Vasotec Inj) 1.25 mg IV.PUSH Q8H PRN PRN Reason: Blood pressure 180/95 Last Admin: 01/16/18 06:22 Dose: 1.25 mg Enoxaparin Sodium (Lovenox Inj) 40 mg SQ DAILY [facility] Last Admin: 01/20/18 10:04 Dose: 40 mg Escitalopram Oxalate (Lexapro) 20 mg PO BID [facility] Last Admin: 01/20/18 10:06 Dose: 20 mg Folic Acid (Folic Acid) 1 mg PO DAILY [facility] Last Admin: 01/20/18 10:05 Dose: 1 mg Haloperidol Lactate (Haldol Inj) 4 mg IV.PUSH Q4H PRN PRN Reason: AGITATION Last Admin: 01/16/18 07:53 Dose: 4 mg Lactulose (Lactulose Liq) 30 ml PO DAILY PRN PRN Reason: CONSTIPATION Last Admin: 01/13/18 17:38 Dose: 30 ml Levetiracetam (Keppra) 750 mg PO BID [facility] Last Admin: 01/20/18 10:06 Dose: 750 mg Lisinopril (Prinivil) 10 mg PO BID [facility] Last Admin: 01/20/18 10:10 Dose: 10 mg Methocarbamol (Robaxin) 500 mg PO Q8HR [facility] Last Admin: 01/20/18 05:54 Dose: 500 mg Multivitamins (Theragran) 1 tab PO DAILY [facility] Last Admin: 01/20/18 10:05 Dose: 1 tab Mupirocin (Bactroban 2% Nasal Oint) 1 applicatio EACH NARE BID [facility] Stop: 01/23/18 10:44 Last Admin: 01/20/18 10:06 Dose: 1 applicatio Nifedipine (Procardia Xl) 60 mg PO DAILY [facility] Last Admin: 01/20/18 10:06 Dose: 60 mg Ondansetron HCl (Zofran Inj) 4 mg IV.PUSH Q6H PRN PRN Reason: FOR NAUSEA AND VOMITING Last Admin: 01/16/18 05:56 Dose: 4 mg Oxycodone HCl (Roxicodone) 5 mg PO Q4H PRN PRN Reason: BREAKTHROUGH PAIN Last Admin: 01/16/18 05:56 Dose: 5 mg Pantoprazole Sodium (Protonix) 40 mg PO DAILY [facility] Last Admin: 01/20/18 10:05 Dose: 40 mg Patch Removal (Remove Old Patch) 1 each T-DERMAL Q7D [facility] Prochlorperazine Edisylate (Compazine Inj) 5 mg IV.PUSH Q12H PRN PRN Reason: NAUSEA OR VOMITING Propranolol HCl (Inderal) 20 mg PO Q8H [facility] Last Admin: 01/20/18 10:05 Dose: 20 mg Senna/Docusate Sodium (Meri-Colace) 1 tab PO BID [facility] Last Admin: 01/20/18 10:05 Dose: 1 tab Sodium Chloride (Ns Flush) 2 ml IV.FLUSH UNSCH PRN PRN Reason: FLUSH AFTER USING IV ACCESS Last Admin: 01/19/18 20:26 Dose: 2 ml Sodium Chloride (Sodium Chloride) 2 gm PO Q8H [facility] Last Admin: 01/20/18 05:54 Dose: 2 gm Thiamine HCl (Vitamin B1) 100 mg PO BID [facility] Last Admin: 01/20/18 10:05 Dose: 100 mg Allergies Allergy/AdvReac Type Severity Reaction Status Date / Time No Known Allergies Allergy Verified 01/12/18 22:46 Home Medications Medication Instructions Recorded Confirmed Type Effexor XR DAILY 01/13/18 History clonazepam 01/13/18 History escitalopram oxalate BID 01/13/18 History Exam - Physical Examination Vital Signs / I&O: Vital Signs 01/19/18 11:59 01/19/18 16:00 01/19/18 20:25 Temperature 98.2 F 98.0 F 97.6 F Pulse Rate 58 L 56 L 56 L Respiratory Rate 18 18 16 Blood Pressure 116/81 128/82 116/75 Pulse Oximetry 95 97 95 01/20/18 00:30 01/20/18 04:35 01/20/18 08:00 Temperature 96.9 F L 97.6 F 98.2 F Pulse Rate 61 57 L 61 Respiratory Rate 16 18 Blood Pressure 125/84 124/82 108/70 Pulse Oximetry 95 93 L 95 Intake & Output 01/19/18 01/20/18 01/20/18 18:59 06:59 18:59 Intake Total 820 / 820 720 / 720 Balance 820 / 820 720 / 720 Weight 81.5 kg Intake: IV 100 / 100 Ofirmev Inj 1,000 mg In 100 ml 100 / 100 @ 400 mls/hr IV.SIG Q6H PRN Rx# :[id number] Oral 720 / 720 720 / 720 Other: # Voids 3 2 Date of Last Bowel Movement 01/17/18 01/17/18 # Bowel Movements 0 Intake & Output 01/18/18 01/19/18 01/20/18 01/21/18 06:59 06:59 06:59 06:59 Intake Total 820 / 820 1200 / 1200 1540 / 1540 Output Total 925 / 925 Balance -105 / -105 1200 / 1200 1540 / 1540 Weight 81.5 kg 81.5 kg 81.5 kg General: No acute distress, Other (Awake and alert; answers questions appropriately and follows commands well) Respiratory: Lungs CTA, Non-labored respirations, BS equal Gastrointestinal: Positive bowel sounds, Non-distended, Non-tender Date of Last Bowel Movement: 01/17/18 Cardiovascular: Normal rate, No edema, Regular rhythm Skin: No rash Musculoskeletal: ROM (Within functional limits), Swelling (None in distal lower extremities) Psychiatric: Cooperative, Appropriate mood & affect - Neurologic Orientation: oriented to: Self, Place, Time, Situation Neurologic: Cranial nerves (Intact 2 through 12 grossly; periorbital ecchymosis) , Speech (No dysarthria or word finding difficulties) Motor: Right Upper Extremity (5/5), Left Upper Extremity (5/5), Right Lower Extremity (5/5), Left Lower Extremity (5/5) Sensory: Intact to light touch in both upper and lower extremities Babinski: Negative Clonus: Negative Results - Labs CBC & Chem 7: 01/19/18 02:39 01/20/18 03:44 Labs: Laboratory Results - last 24 hr 01/20/18 03:44 Sodium 129 L Potassium 4.0 Chloride 94 L Carbon Dioxide 24.7 Anion Gap 10 BUN 14 Creatinine 0.71 Estimated GFR 85 L Random Glucose 99 Calcium 8.5 Assessment and Plan (1) Intracranial hemorrhage Status: Acute Code(s): I62.9 - Nontraumatic intracranial hemorrhage, unspecified - Plan Assessment: 1. Fall with closed head injury including intracranial hemorrhage Recommendations: 1. Patient is progressing well with mobility. Physical therapy is mobilizing and now independent transfers and gait 150 feet with no device. Continue to mobilize. 2. Occupational Therapy addressing ADLs and now minimal consult for cognitive evaluation remediation 3. Speech therapy consult for cognitive evaluation remediation 4. Neuropsychology follow-up appreciated 5. Case management is addressing discharge planning. Will follow in conjunction with case management. Prior to admission patient was independent with mobility and ADLs. 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 She lives in [place] with her . 6. Will follow while hospitalized and at discharge as appropriate Thank you for this consult
--- NOTE | 2018-01-20 12:23 | P.PN ---
Subjective Interval history: Patient seen and examined, Stable in no acute event overnight Sodium up to 129. Physical Exam Vital signs: Vital Signs 01/19/18 16:00 01/19/18 20:25 01/20/18 00:30 Temperature 98.0 F 97.6 F 96.9 F L Pulse Rate 56 L 56 L 61 Respiratory Rate 18 16 16 Blood Pressure 128/82 116/75 125/84 Pulse Oximetry 97 95 95 01/20/18 04:35 01/20/18 08:00 Temperature 97.6 F 98.2 F Pulse Rate 57 L 61 Respiratory Rate 18 Blood Pressure 124/82 108/70 Pulse Oximetry 93 L 95 Intake & Output 01/19/18 01/20/18 01/20/18 18:59 06:59 18:59 Intake Total 820 / 820 720 / 720 Balance 820 / 820 720 / 720 Weight 81.5 kg Intake: IV 100 / 100 Ofirmev Inj 1,000 mg In 100 ml 100 / 100 @ 400 mls/hr IV.SIG Q6H PRN Rx# :[id number] Oral 720 / 720 720 / 720 Other: # Voids 3 2 Date of Last Bowel Movement 01/17/18 01/17/18 01/17/18 # Bowel Movements 0 Narrative: GENERAL: NAD SKIN: Warm and dry. HEAD: Atraumatic. Normocephalic. EYES: PERRLA. Left eye ecchymosis noted. ENT: No nasal bleeding or discharge. Mucous membranes pink and moist. NECK: Trachea midline. No JVD. CARDIOVASCULAR: Regular rate and rhythm. RESPIRATORY: No accessory muscle use. Lungs are clear to auscultation. Breath sounds equal bilaterally. No distress or dyspnea. GASTROINTESTINAL: BS + x 4 quads. Abdomen soft, non-tender, nondistended. MUSCULOSKELETAL: Extremities without cyanosis, or edema. + peripheral pulses x 4 extremities. Warm with good capillary refill and sensation. MAEW. NEUROLOGICAL: Awake and alert. Normal speech and pattern. - Urinary Catheter Management Indwelling Urethral Catheter Cath placed during this visit: yes, but has since been removed by the nurse Reason for continuing: Decision to DC catheter Insertion date: 01/12/18 Insertion time: 23:30 Removal date: 01/13/18 Removal time: 12:00 Results - Labs CBC & Chem 7: 01/19/18 02:39 01/20/18 03:44 Laboratory Results - last 24 hr 01/20/18 03:44 Sodium 129 L Potassium 4.0 Chloride 94 L Carbon Dioxide 24.7 Anion Gap 10 BUN 14 Creatinine 0.71 Estimated GFR 85 L Random Glucose 99 Calcium 8.5 Assessment and Plan - Plan 57 years old female with Bilateral frontal parenchymal contusions LEFT temporal parenchymal contusions RIGHT frontal SDH ,RIGHT parietal SDH ,LEFT temporal SDH Skull base fx extending to bilat sphenoid bones LEFT occipital bone fx LEFT Nasal fx (non-op) Management per Trauma Surgery Continue with Seizure prophylaxis with [facility] Neuro check PT/OT to treat and eval History of chronic alcohol abuse and dependence Alcohol cessation counselling was provided Continue with CIWA protocol, rally pack Hyponatremia of beer potomania 2/2 from chronic alcohol abuse serum Osmolality-low Discontinue salt tablet and start Samsca 15 mg daily today 01/20/18 x 3 days (end date 01/22/18) Monitor Na Hypertension Normotensive on: Propranolol 20mg q8h. Norvasc 5mg QD, Clonidine patch 0.2mg. Lisinopril 10mg BID. Procardia XL 60mg QD DVT prophylaxis: Lovenox
--- NOTE | 2018-01-20 13:32 | P.PN ---
Subjective Interval history: Trauma PTD: 8 Patient sitting up in bed. No distress noted. No complaints offered. Patient states, "my head is okay." Patient really wants to go home. Physical Exam Vital signs: Vital Signs 01/19/18 16:00 01/19/18 20:25 01/20/18 00:30 Temperature 98.0 F 97.6 F 96.9 F L Pulse Rate 56 L 56 L 61 Respiratory Rate 18 16 16 Blood Pressure 128/82 116/75 125/84 Pulse Oximetry 97 95 95 01/20/18 04:35 01/20/18 08:00 01/20/18 12:00 Temperature 97.6 F 98.2 F 98.2 F Pulse Rate 57 L 61 56 L Respiratory Rate 18 16 Blood Pressure 124/82 108/70 100/68 Pulse Oximetry 93 L 95 98 Intake & Output 01/19/18 01/20/18 01/20/18 18:59 06:59 18:59 Intake Total 820 / 820 720 / 720 Balance 820 / 820 720 / 720 Weight 81.5 kg Intake: IV 100 / 100 Ofirmev Inj 1,000 mg In 100 ml 100 / 100 @ 400 mls/hr IV.SIG Q6H PRN Rx# :[id number] Oral 720 / 720 720 / 720 Other: # Voids 3 2 Date of Last Bowel Movement 01/17/18 01/17/18 01/17/18 # Bowel Movements 0 Narrative: GENERAL: This is a 57-year-old female sitting up in bed. No distress noted. SKIN: Warm and dry. HEAD: Atraumatic. Normocephalic. EYES: PERRLA. Left eye ecchymosis noted. ENT: No nasal bleeding or discharge. Mucous membranes pink and moist. NECK: Trachea midline. No JVD. CARDIOVASCULAR: Regular rate and rhythm. RESPIRATORY: No accessory muscle use. Lungs are clear to auscultation. Breath sounds equal bilaterally. No distress or dyspnea. GASTROINTESTINAL: BS + x 4 quads. Abdomen soft, non-tender, nondistended. MUSCULOSKELETAL: Extremities without cyanosis, or edema. + peripheral pulses x 4 extremities. Warm with good capillary refill and sensation. MAEW. NEUROLOGICAL: Awake and alert. Normal speech and pattern. - Urinary Catheter Management Indwelling Urethral Catheter Cath placed during this visit: yes, but has since been removed by the nurse Reason for continuing: Decision to DC catheter Insertion date: 01/12/18 Insertion time: 23:30 Removal date: 01/13/18 Removal time: 12:00 Results - Labs CBC & Chem 7: 01/19/18 02:39 01/20/18 03:44 Laboratory Results - last 24 hr 01/20/18 03:44 Sodium 129 L Potassium 4.0 Chloride 94 L Carbon Dioxide 24.7 Anion Gap 10 BUN 14 Creatinine 0.71 Estimated GFR 85 L Random Glucose 99 Calcium 8.5 Assessment and Plan - Assessment (1) Closed skull fracture Code(s): S02.91XA - Unspecified fracture of skull, initial encounter for closed fracture Status: Acute (2) Intracranial hemorrhage Code(s): I62.9 - Nontraumatic intracranial hemorrhage, unspecified Status: Acute (3) Subdural hematoma, acute Code(s): S06.5X9A - Traumatic subdural hemorrhage with loss of consciousness of unspecified duration, initial encounter Status: Acute (4) Major neurocognitive disorder as late effect of traumatic brain injury with behavioral disturbance Code(s): S06.9X9S - Unspecified intracranial injury with loss of consciousness of unspecified duration, sequela; F02.81 - Dementia in other diseases classified elsewhere with behavioral disturbance Status: Acute (5) Alcohol dependence in controlled environment Code(s): F10.20 - Alcohol dependence, uncomplicated Status: Acute - Plan [place]: This is a 57-year old female who sustained a fall. She returned from an AA meeting, and she was intoxicated and fell from a standing position. Questionable LOC. GCS 12. EtOH 323. INJURIES: Bilateral frontal parenchymal contusions LEFT temporal parenchymal contusions RIGHT frontal SDH (4mm) RIGHT parietal SDH (3mm) LEFT temporal SDH (3mm) Skull base fx extending to bilat sphenoid bones LEFT occipital bone fx LEFT Nasal fx (non-op) 8 mm nonspecific circumscribed lytic lesion at the C5 vertebral body. PMHx: ETOH abuse Procedures: Consults: Hospitalist. Neurosurgery. Neuropsych. OMFS. Case management. Diet: Regular diet. Tolerating po diet. Encourage good po intake with each meal. Pulmonary: Encourage good pulmonary toileting. IS at bedside and pt encouraged to use. Rationale for use explained to patient, and verbalized understanding. PAIN Management: Oxycodone 5mg q4h. Robaxin 500mg q8h. IV Ofirmev IV PRN. EtOH: Valium 5 mg taper (will complete 01/23) Haldol 4 mg q 4h PRN. Activity: OOB. PT and OT ordered. GI prophylaxis: Protonix 40 mg IV. Bowel regimen: Meri-colace. Lactulose PRN. LBM 01/17 DVT prophylaxis: Mechanical VTE with SCDs. Chemical management with Lovenox 40 mg QD SQ. DC Planning: Case management consulted for assistance with final discharge disposition. Emotional support provided to patient and family at bedside and plan of care discussed. Discussed with RN at bedside. Discussed pt condition and plan of care with collaborating trauma surgeon. Patient is hemodynamically stable and being managed on the med/surg floor. The trauma team will round each day, and evaluate plan of care on a daily basis. Bilateral frontal parenchymal contusions LEFT temporal parenchymal contusions RIGHT frontal SDH (4mm) RIGHT parietal SDH (3mm) LEFT temporal SDH (3mm) Skull base fx extending to bilat sphenoid bones LEFT occipital bone fx LEFT Nasal fx (non-op) Neurosurgery consulted and assisting in management and care OMFS consulted and assisting in management and care Nasal fractures are nonoperative -follow-up outpatient Supportive care 01/14: CT head-Bifrontal IPH with increased edema, SAH is decreased in size, SDH stable. 01/13: CT head- Worsening SDH w/ midline shift 01/13: MRI neck- neg Serial neuro checks CT brain for any change in neurological status Currently patient remains alert and oriented Pain management Seizure precautions Seizure prophylaxis -Keppra po Encourage out of bed PT and OT ordered Bowel regimen Lovenox for DVT prophylaxis ETOH Hyponatremia Sodium depletion due to alcohol Hospitalist consulted and assisting in management and care Supportive care Encouraged abstaining from alcohol Valium taper in progress Monitor for signs and symptoms of DTs Seizure precautions Seizure prophylaxis -Keppra p.o. Multivitamins NA = 129 Sodium correction slowly (4-8/day) Salt tabs DC'd by hospitalist, they are going to begin a 3-day dosing of Samsca Follow-up labs in the morning HTN Hospitalist consult to assist in medical management Vital signs every 4 hours and as needed Propranolol 20mg q8h. Norvasc 5mg QD, Clonidine patch 0.2mg. Lisinopril 10mg BID. Procardia XL 60mg QD (1) Closed skull fracture Qualifiers: Encounter type: initial encounter Skull bone/location: occipital bone Occipital fracture type: unspecified fracture of occiput Laterality: left Qualified Code(s): S02.119A - Unspecified fracture of occiput, initial encounter for closed fracture
[2018-01-20] MEDS: diazePAM 5 MG Tablet PO SCH (22:21)
[2018-01-21] MEDS: Methocarbamol 500 MG Tablet PO SCH ×4 (06:22→21:49)
[2018-01-21 07:40] LABS: Alanine Aminotransferase 182 U/L (10-53); Albumin 3.5 g/dL (3.4-5.0); Alkaline Phosphatase 61 U/L (45-117); Anion Gap 10 meq/L (5-15); Aspartate Aminotransferase 93 U/L (15-37); Blood Urea Nitrogen 13 mg/dL (7-18); Calcium 9.1 mg/dL (8.5-10.1); Carbon Dioxide 23.3 meq/L (21.0-32.0); Chloride 102 meq/L (98-107); Glomerular Filtration Rate 78 mL/min (>89); Glucose,Random 95 mg/dL (74-106); Sodium 135 meq/L (136-145)
[2018-01-21] MEDS: Folic Acid 1 MG Tablet PO SCH (08:39)
[2018-01-21] MEDS: Senna/Docusate Sodium 8.6/50 MG Tablet PO SCH ×2 (08:39→21:49)
[2018-01-21] MEDS: levETIRAcetam 500 MG Tablet PO SCH ×3 (08:39→21:50)
[2018-01-21] MEDS: Enoxaparin Inj 40 MG/0.4 ML Syringe SQ SCH (08:40)
[2018-01-21] MEDS: amLODIPine 5 MG Tablet PO SCH (08:41)
[2018-01-21] MEDS: Lisinopril 10 MG Tablet PO SCH (08:41)
[2018-01-21] MEDS: Mupirocin 2% Nasal Oint Topical Syringe EACH NARE SCH ×2 (08:41→21:49)
--- NOTE | 2018-01-21 11:24 | P.PN ---
Subjective Interval history: Trauma PTD: 9 Patient sitting up in bed. No distress noted. Patient really wants to go home. Patient with minimal complaints of headache. Patient states, "yeah, I saw the primary doctor. He change my sodium meds." "I am concerned. What should I expect to feel in terms of symptoms when I go home?" Patient complains of dry cough. Physical Exam Vital signs: Vital Signs 01/20/18 12:00 01/20/18 16:00 01/20/18 19:40 Temperature 98.2 F 98.2 F 98.3 F Pulse Rate 56 L 64 59 L Respiratory Rate 16 16 16 Blood Pressure 100/68 94/56 L 99/57 L Pulse Oximetry 98 98 96 01/21/18 00:20 01/21/18 04:35 01/21/18 08:00 Temperature 98.1 F 97.7 F 98.2 F Pulse Rate 59 L 65 105 H Respiratory Rate 16 17 17 Blood Pressure 104/62 126/77 105/71 Pulse Oximetry 92 L 94 L 96 Intake & Output 01/20/18 01/21/18 01/21/18 18:59 06:59 18:59 Intake Total 480 / 480 Output Total 600 / 600 Balance -600 / -600 480 / 480 Weight 81.4 kg Intake: Oral 480 / 480 Output: Urine 600 / 600 Other: # Voids 3 Date of Last Bowel Movement 01/20/18 01/20/18 01/20/18 # Bowel Movements 1 0 Narrative: GENERAL: This is a 57-year-old female sitting up in bed. No distress noted. SKIN: Warm and dry. HEAD: Atraumatic. Normocephalic. EYES: PERRLA. Left eye ecchymosis noted. ENT: No nasal bleeding or discharge. Mucous membranes pink and moist. NECK: Trachea midline. No JVD. CARDIOVASCULAR: Regular rate and rhythm. RESPIRATORY: No accessory muscle use. Lungs are clear to auscultation. Breath sounds equal bilaterally. No distress or dyspnea. GASTROINTESTINAL: BS + x 4 quads. Abdomen soft, non-tender, nondistended. MUSCULOSKELETAL: Extremities without cyanosis, or edema. + peripheral pulses x 4 extremities. Warm with good capillary refill and sensation. MAEW. NEUROLOGICAL: Awake and alert. Flat affect noted. Normal speech and pattern. - Urinary Catheter Management Indwelling Urethral Catheter Cath placed during this visit: yes, but has since been removed by the nurse Reason for continuing: Decision to DC catheter Insertion date: 01/12/18 Insertion time: 23:30 Removal date: 01/13/18 Removal time: 12:00 Results - Labs CBC & Chem 7: 01/19/18 02:39 01/21/18 05:46 Laboratory Results - last 24 hr 01/21/18 05:46 Sodium 135 L Potassium 4.0 Chloride 102 D Carbon Dioxide 23.3 Anion Gap 10 BUN 13 Creatinine 0.77 Estimated GFR 78 L Random Glucose 95 Calcium 9.1 Total Bilirubin 0.6 AST 93 H ALT 182 H Alkaline Phosphatase 61 Total Protein 8.0 D Albumin 3.5 Assessment and Plan - Assessment (1) Closed skull fracture Code(s): S02.91XA - Unspecified fracture of skull, initial encounter for closed fracture Status: Acute (2) Intracranial hemorrhage Code(s): I62.9 - Nontraumatic intracranial hemorrhage, unspecified Status: Acute (3) Subdural hematoma, acute Code(s): S06.5X9A - Traumatic subdural hemorrhage with loss of consciousness of unspecified duration, initial encounter Status: Acute (4) Major neurocognitive disorder as late effect of traumatic brain injury with behavioral disturbance Code(s): S06.9X9S - Unspecified intracranial injury with loss of consciousness of unspecified duration, sequela; F02.81 - Dementia in other diseases classified elsewhere with behavioral disturbance Status: Acute (5) Alcohol dependence in controlled environment Code(s): F10.20 - Alcohol dependence, uncomplicated Status: Acute - Plan [place]: This is a 57-year old female who sustained a fall. She returned from an AA meeting, and she was intoxicated and fell from a standing position. Questionable LOC. GCS 12. EtOH 323. INJURIES: Bilateral frontal parenchymal contusions LEFT temporal parenchymal contusions RIGHT frontal SDH (4mm) RIGHT parietal SDH (3mm) LEFT temporal SDH (3mm) Skull base fx extending to bilat sphenoid bones LEFT occipital bone fx LEFT Nasal fx (non-op) 8 mm nonspecific circumscribed lytic lesion at the C5 vertebral body. PMHx: ETOH abuse Procedures: Consults: Hospitalist. Neurosurgery. Neuropsych. OMFS. Case management. Diet: Regular diet. Tolerating po diet. Encourage good po intake with each meal. Pulmonary: Encourage good pulmonary toileting. IS at bedside and pt encouraged to use. Rationale for use explained to patient, and verbalized understanding. PAIN Management: Oxycodone 5mg q4h. Robaxin 500mg q8h. IV Ofirmev IV PRN. EtOH: Valium 5 mg taper (will complete 01/23) Haldol 4 mg q 4h PRN. Activity: OOB. PT and OT ordered. GI prophylaxis: Protonix 40 mg IV. Bowel regimen: Meri-colace. Lactulose PRN. LBM 01/20. DVT prophylaxis: Mechanical VTE with SCDs. Chemical management with Lovenox 40 mg QD SQ. DC Planning: Case management consulted for assistance with final discharge disposition. Emotional support provided to patient and family at bedside and plan of care discussed. Discussed with RN at bedside. Discussed pt condition and plan of care with collaborating trauma surgeon. Patient is hemodynamically stable and being managed on the med/surg floor. The trauma team will round each day, and evaluate plan of care on a daily basis. Bilateral frontal parenchymal contusions LEFT temporal parenchymal contusions RIGHT frontal SDH (4mm) RIGHT parietal SDH (3mm) LEFT temporal SDH (3mm) Skull base fx extending to bilat sphenoid bones LEFT occipital bone fx LEFT Nasal fx (non-op) Neurosurgery consulted and assisting in management and care OMFS consulted and assisting in management and care Nasal fractures are nonoperative -follow-up outpatient Supportive care 01/14: CT head-Bifrontal IPH with increased edema, SAH is decreased in size, SDH stable. 01/13: CT head- Worsening SDH w/ midline shift 01/13: MRI neck- neg Serial neuro checks CT brain for any change in neurological status Currently patient remains alert and oriented Pain management Seizure precautions Seizure prophylaxis -Keppra po Encourage out of bed PT and OT ordered Bowel regimen Lovenox for DVT prophylaxis ETOH Hyponatremia Sodium depletion due to alcohol Hospitalist consulted and assisting in management and care Supportive care Encouraged abstaining from alcohol Valium taper in progress Monitor for signs and symptoms of DTs Seizure precautions Seizure prophylaxis -Keppra p.o. Multivitamins NA = 135 Sodium correction slowly (4-8/day) 3-day dosing of Samsca Follow-up labs in the morning HTN Hospitalist consult to assist in medical management Vital signs every 4 hours and as needed Propranolol 20mg q8h. Norvasc 5mg QD, Clonidine patch 0.2mg. DC Lisinopril due to cough Procardia XL 60mg QD (1) Closed skull fracture Qualifiers: Encounter type: initial encounter Skull bone/location: occipital bone Occipital fracture type: unspecified fracture of occiput Laterality: left Qualified Code(s): S02.119A - Unspecified fracture of occiput, initial encounter for closed fracture
--- NOTE | 2018-01-21 16:03 | P.PNIM ---
Subjective Interval history: Patient seen lying in bed. No new complaints. No dizziness or changes in vision. No chest pain or shortness of breath. No nausea vomiting or diarrhea. Physical Exam Vital signs: Last Vital Signs Temp 97.5 F L 01/21/18 12:00 Pulse 58 L 01/21/18 12:00 Resp 18 01/21/18 12:00 BP 117/73 01/21/18 12:00 Pulse Ox 95 01/21/18 12:00 Intake & Output 01/19/18 01/20/18 01/21/18 01/22/18 06:59 06:59 06:59 06:59 Intake Total 1200 / 1200 1540 / 1540 480 / 480 Output Total 600 / 600 Balance 1200 / 1200 1540 / 1540 -120 / -120 Weight 81.5 kg 81.5 kg 81.4 kg Narrative: GENERAL: Well-nourished, well-developed adult female in no apparent distress. SKIN: Warm and dry. HEAD: Atraumatic. Normocephalic. EYES: PERRLA. Left eye ecchymosis noted. ENT: No nasal bleeding or discharge. Mucous membranes pink and moist. CARDIOVASCULAR: Regular rate and rhythm. RESPIRATORY: No accessory muscle use. Lungs are clear to auscultation. Breath sounds equal bilaterally. No distress or dyspnea. GASTROINTESTINAL: BS + x 4 quads. Abdomen soft, non-tender, nondistended. MUSCULOSKELETAL: Extremities without cyanosis, or edema. No obvious deformities. Well perfused. NEUROLOGICAL: Awake and alert. Flat affect noted. Normal speech and pattern. Urinary Catheter Management Indwelling Urethral Catheter: Cath placed during this visit: yes, but has since been removed by the nurse Insertion date: 01/12/18 Insertion time: 23:30 Removal date: 01/13/18 Removal time: 12:00 Results Labs CBC & Chem 7: 01/19/18 02:39 01/22/18 05:50 Assessment and Plan (1) Intracranial hemorrhage: Code(s): I62.9 - Nontraumatic intracranial hemorrhage, unspecified Status: Acute Plan 57 years old female with a past medical history of hypertension, depression, and alcohol abuse who presented to the emergency room after falling while intoxicated. Bilateral frontal parenchymal contusions LEFT temporal parenchymal contusions RIGHT frontal SDH ,RIGHT parietal SDH ,LEFT temporal SDH Skull base fx extending to bilat sphenoid bones LEFT occipital bone fx LEFT Nasal fx (non-op) Management per Trauma Surgery Continue with Seizure prophylaxis with [facility] Neuro check PT/OT to treat and eval History of chronic alcohol abuse and dependence Alcohol cessation counselling was provided Continue with SUSANA protocol, nathalie garland Hyponatremia of beer potomania 2/2 from chronic alcohol abuse serum Osmolality-low Discontinue salt tablet and start Samsca 15 mg daily today 01/20/18 x 3 days (end date 01/22/18) Monitor Na ; stable Hypertension Normotensive on: Propranolol 20mg q8h. Norvasc 5mg QD, Clonidine patch 0.2mg. Lisinopril 10mg BID. Procardia XL 60mg QD DVT prophylaxis: Lovenox Discharge planning: To be determined; limited resources. Progress Note: Quality VTE Deep Vein Thrombosis/Pulmonary Embolism Present on Admission: No
[2018-01-21] MEDS: diazePAM 5 MG Tablet PO SCH (21:49)
[2018-01-22] MEDS: Methocarbamol 500 MG Tablet PO SCH ×3 (05:18→21:57)
[2018-01-22 07:01] LABS: Alanine Aminotransferase 178 U/L (10-53); Albumin 3.3 g/dL (3.4-5.0); Anion Gap 6 meq/L (5-15); Aspartate Aminotransferase 80 U/L (15-37); Blood Urea Nitrogen 9 mg/dL (7-18); Calcium 8.6 mg/dL (8.5-10.1); Carbon Dioxide 25.7 meq/L (21.0-32.0); Chloride 101 meq/L (98-107); Glomerular Filtration Rate 87 mL/min (>89); Glucose,Random 102 mg/dL (74-106); Sodium 133 meq/L (136-145)
[2018-01-22 07:03] LABS: Alkaline Phosphatase 61 U/L (45-117); Total Protein 7.8 g/dL (6.4-8.2)
--- NOTE | 2018-01-22 07:46 | P.PN ---
Subjective Interval history: Trauma PTD: 10 Patient sitting up in bed. No distress noted. Patient asked, "is it normal for me to be nauseous?" Physical Exam Vital signs: Vital Signs 01/21/18 08:00 01/21/18 12:00 01/21/18 16:00 Temperature 98.2 F 97.5 F L 98.0 F Pulse Rate 105 H 58 L 63 Respiratory Rate 17 18 18 Blood Pressure 105/71 117/73 121/78 Pulse Oximetry 96 95 93 L 01/21/18 19:52 01/21/18 23:47 01/22/18 02:21 Temperature 98.1 F 98.0 F 98.3 F Pulse Rate 61 61 65 Respiratory Rate 16 15 14 Blood Pressure 102/65 120/77 121/86 Pulse Oximetry 94 L 96 94 L Intake & Output 01/21/18 01/22/18 01/22/18 18:59 06:59 18:59 Intake Total 1100 / 1100 840 / 840 Balance 1100 / 1100 840 / 840 Weight 78.8 kg Intake: Oral 1100 / 1100 840 / 840 Other: # Voids 2 5 Date of Last Bowel Movement 01/20/18 01/20/18 # Bowel Movements 0 Narrative: GENERAL: This is a 57-year-old female sitting up in bed. No distress noted. SKIN: Warm and dry. HEAD: Atraumatic. Normocephalic. EYES: PERRLA. Left eye ecchymosis noted. ENT: No nasal bleeding or discharge. Mucous membranes pink and moist. NECK: Trachea midline. No JVD. CARDIOVASCULAR: Regular rate and rhythm. RESPIRATORY: No accessory muscle use. Lungs are clear to auscultation. Breath sounds equal bilaterally. No distress or dyspnea. GASTROINTESTINAL: BS + x 4 quads. Abdomen soft, non-tender, nondistended. MUSCULOSKELETAL: Extremities without cyanosis, or edema. + peripheral pulses x 4 extremities. Warm with good capillary refill and sensation. MAEW. NEUROLOGICAL: Awake and alert. Flat affect noted. Normal speech and pattern. - Urinary Catheter Management Indwelling Urethral Catheter Cath placed during this visit: yes, but has since been removed by the nurse Reason for continuing: Decision to DC catheter Insertion date: 01/12/18 Insertion time: 23:30 Removal date: 01/13/18 Removal time: 12:00 Results - Labs CBC & Chem 7: 01/19/18 02:39 01/22/18 05:50 Laboratory Results - last 24 hr 01/22/18 05:50 Sodium 133 L Potassium 4.0 Chloride 101 Carbon Dioxide 25.7 Anion Gap 6 BUN 9 Creatinine 0.70 Estimated GFR 87 L Random Glucose 102 Calcium 8.6 Total Bilirubin 0.6 AST 80 H ALT 178 H Alkaline Phosphatase 61 Total Protein 7.8 Albumin 3.3 L Assessment and Plan - Assessment (1) Closed skull fracture Code(s): S02.91XA - Unspecified fracture of skull, initial encounter for closed fracture Status: Acute (2) Intracranial hemorrhage Code(s): I62.9 - Nontraumatic intracranial hemorrhage, unspecified Status: Acute (3) Subdural hematoma, acute Code(s): S06.5X9A - Traumatic subdural hemorrhage with loss of consciousness of unspecified duration, initial encounter Status: Acute (4) Major neurocognitive disorder as late effect of traumatic brain injury with behavioral disturbance Code(s): S06.9X9S - Unspecified intracranial injury with loss of consciousness of unspecified duration, sequela; F02.81 - Dementia in other diseases classified elsewhere with behavioral disturbance Status: Acute (5) Alcohol dependence in controlled environment Code(s): F10.20 - Alcohol dependence, uncomplicated Status: Acute - Plan [place]: This is a 57-year old female who sustained a fall. She returned from an AA meeting, and she was intoxicated and fell from a standing position. Questionable LOC. GCS 12. EtOH 323. INJURIES: Bilateral frontal parenchymal contusions LEFT temporal parenchymal contusions RIGHT frontal SDH (4mm) RIGHT parietal SDH (3mm) LEFT temporal SDH (3mm) Skull base fx extending to bilat sphenoid bones LEFT occipital bone fx LEFT Nasal fx (non-op) 8 mm nonspecific circumscribed lytic lesion at the C5 vertebral body. PMHx: ETOH abuse Procedures: Consults: Hospitalist. Neurosurgery. Neuropsych. OMFS. Case management. Diet: Regular diet. Tolerating po diet. Encourage good po intake with each meal. Pulmonary: Encourage good pulmonary toileting. IS at bedside and pt encouraged to use. Rationale for use explained to patient, and verbalized understanding. PAIN Management: Oxycodone 5mg q4h. Robaxin 500mg q8h. IV Ofirmev IV PRN. EtOH: Valium 5 mg taper (will complete 01/23) Haldol 4 mg q 4h PRN. Activity: OOB. PT and OT ordered. GI prophylaxis: Protonix 40 mg IV. Bowel regimen: Meri-colace. Lactulose PRN. LBM 01/20. DVT prophylaxis: Mechanical VTE with SCDs. Chemical management with Lovenox 40 mg QD SQ. DC Planning: Case management consulted for assistance with final discharge disposition. No home PT needs. Emotional support provided to patient at bedside and plan of care discussed. Discussed with RN at bedside. Discussed pt condition and plan of care with collaborating trauma surgeon. Patient is hemodynamically stable and being managed on the med/surg floor. The trauma team will round each day, and evaluate plan of care on a daily basis. Bilateral frontal parenchymal contusions LEFT temporal parenchymal contusions RIGHT frontal SDH (4mm) RIGHT parietal SDH (3mm) LEFT temporal SDH (3mm) Skull base fx extending to bilat sphenoid bones LEFT occipital bone fx LEFT Nasal fx (non-op) Neurosurgery consulted and assisting in management and care OMFS consulted and assisting in management and care Nasal fractures are nonoperative -follow-up outpatient Supportive care 01/14: CT head-Bifrontal IPH with increased edema, SAH is decreased in size, SDH stable. 01/13: CT head- Worsening SDH w/ midline shift 01/13: MRI neck- neg Serial neuro checks CT brain for any change in neurological status Currently patient remains alert and oriented Pain management Seizure precautions Seizure prophylaxis -Keppra po Encourage out of bed PT and OT ordered Bowel regimen Lovenox for DVT prophylaxis ETOH Hyponatremia Sodium depletion due to alcohol Hospitalist consulted and assisting in management and care Supportive care Encouraged abstaining from alcohol Valium taper in progress Monitor for signs and symptoms of DTs Seizure precautions Seizure prophylaxis -Keppra p.o. Multivitamins NA = 133 Sodium correction slowly (4-8/day) 3-day dosing of Samsca - completed today Follow-up labs in the morning HTN Hospitalist consult to assist in medical management Vital signs every 4 hours and as needed Propranolol 20mg q8h. Norvasc 5mg QD, Clonidine patch 0.2mg. DC Lisinopril due to cough Procardia XL 60mg QD (1) Closed skull fracture Qualifiers: Encounter type: initial encounter Skull bone/location: occipital bone Occipital fracture type: unspecified fracture of occiput Laterality: left Qualified Code(s): S02.119A - Unspecified fracture of occiput, initial encounter for closed fracture
[2018-01-22] MEDS: Folic Acid 1 MG Tablet PO SCH (08:04)
[2018-01-22] MEDS: Enoxaparin Inj 40 MG/0.4 ML Syringe SQ SCH (08:04)
[2018-01-22] MEDS: amLODIPine 5 MG Tablet PO SCH (08:05)
[2018-01-22] MEDS: Senna/Docusate Sodium 8.6/50 MG Tablet PO SCH ×2 (08:05→21:57)
[2018-01-22] MEDS: Mupirocin 2% Nasal Oint Topical Syringe EACH NARE SCH ×2 (08:05→21:58)
[2018-01-22] MEDS: levETIRAcetam 500 MG Tablet PO SCH ×2 (08:05→21:58)
--- NOTE | 2018-01-22 16:29 | P.PNIM ---
Subjective Interval history: Patient is seen lying quietly in bed. She is complaining of some mild nausea but has not had any vomiting. No chest pain or shortness of breath. No dizziness, headache or changes in vision. Physical Exam Vital signs: Last Vital Signs Temp 97.4 F L 01/22/18 12:00 Pulse 58 L 01/22/18 12:00 Resp 18 01/22/18 12:00 BP 127/77 01/22/18 12:00 Pulse Ox 96 01/22/18 12:00 Intake & Output 01/20/18 01/21/18 01/22/18 01/23/18 06:59 06:59 06:59 06:59 Intake Total 1540 / 1540 480 / 480 1939 Output Total 600 / 600 Balance 1540 / 1540 -120 / -120 1939 Weight 81.5 kg 81.4 kg 78.8 kg Narrative: GENERAL: Well-nourished, well-developed adult female in no obvious distress. SKIN: Warm and dry. Ecchymosis around eyes bilaterally. HEAD: Atraumatic. Normocephalic. CARDIOVASCULAR: Regular rate and rhythm. RESPIRATORY: No accessory muscle use. Clear to auscultation. Breath sounds equal bilaterally. GASTROINTESTINAL: Abdomen soft, non-tender, non-distended. Positive bowel sounds. MUSCULOSKELETAL: Extremities without clubbing, cyanosis, or edema. No obvious deformities. NEUROLOGICAL: Awake and alert. No obvious cranial nerve deficits. Motor grossly within normal limits. Normal speech. Urinary Catheter Management Indwelling Urethral Catheter: Cath placed during this visit: yes, but has since been removed by the nurse Insertion date: 01/12/18 Insertion time: 23:30 Removal date: 01/13/18 Removal time: 12:00 Results Labs CBC & Chem 7: 01/19/18 02:39 01/22/18 05:50 Assessment and Plan (1) Closed skull fracture: Code(s): S02.91XA - Unspecified fracture of skull, initial encounter for closed fracture Status: Acute (2) Intracranial hemorrhage: Code(s): I62.9 - Nontraumatic intracranial hemorrhage, unspecified Status: Acute (3) Subdural hematoma, acute: Code(s): S06.5X9A - Traumatic subdural hemorrhage with loss of consciousness of unspecified duration, initial encounter Status: Acute (4) Major neurocognitive disorder as late effect of traumatic brain injury with behavioral disturbance: Code(s): S06.9X9S - Unspecified intracranial injury with loss of consciousness of unspecified duration, sequela; F02.81 - Dementia in other diseases classified elsewhere with behavioral disturbance Status: Acute (5) Alcohol dependence in controlled environment: Code(s): F10.20 - Alcohol dependence, uncomplicated Status: Acute Plan 57 years old female with a past medical history of hypertension, depression, and alcohol abuse who presented to the emergency room after falling while intoxicated. Bilateral frontal parenchymal contusions LEFT temporal parenchymal contusions RIGHT frontal SDH ,RIGHT parietal SDH ,LEFT temporal SDH Skull base fx extending to bilat sphenoid bones LEFT occipital bone fx LEFT Nasal fx (non-op) Management per Trauma Surgery Continue with Seizure prophylaxis with [facility] Neuro check PT/OT to treat and eval History of chronic alcohol abuse and dependence Alcohol cessation counselling was provided Continue with CIWA protocol, rally pack Hyponatremia of beer potomania 2/2 from chronic alcohol abuse serum Osmolality-low Discontinue salt tablet and start Samsca 15 mg daily today 01/20/18 x 3 days (end date 01/22/18) Monitor Na ; stable Hypertension Normotensive on: Propranolol 20mg q8h. Norvasc 5mg QD, Clonidine patch 0.2mg. Lisinopril 10mg BID. Procardia XL 60mg QD Transaminitis Likely related to EtOH abuse Will order hepatitis panel Patient should follow-up with GI as outpatient DVT prophylaxis: Lovenox Discharge planning: To be determined; limited resources. Progress Note: Quality VTE Deep Vein Thrombosis/Pulmonary Embolism Present on Admission: No _ (1) Closed skull fracture Qualifiers: Encounter type: initial encounter Fracture healing: Laterality: left Occipital fracture type: unspecified fracture of occiput Skull bone/location: occipital bone Qualified Code(s): S02.119A - Unspecified fracture of occiput, initial encounter for closed fracture
[2018-01-22] MEDS: diazePAM 5 MG Tablet PO SCH (21:57)
[2018-01-22] MEDS: Acetaminophen 325 MG Tablet PO PRN (22:01)
[2018-01-23 01:19] VITALS: O2SAT 96
[2018-01-23] MEDS: Methocarbamol 500 MG Tablet PO SCH ×2 (05:56→13:32)
[2018-01-23 07:06] LABS: Calcium 8.9 mg/dL (8.5-10.1); Carbon Dioxide 27.3 meq/L (21.0-32.0)
[2018-01-23 07:32] LABS: Hepatitits B Surface Antigen Nonreactive (Nonreactive)
[2018-01-23 08:01] LABS: Hepatitis A IgM Antibody Nonreactive (Nonreactive)
--- NOTE | 2018-01-23 08:26 | P.PNNPSY ---
- Behavior Intact: Impulsive/agitated - Cognitive Intact: Cognitive, Attention/concentration, Confused/orientation, Insight/ awareness, Judgment/problem solving, Memory - Progress Notes/Response to Treatment Contents of Sessions: Adjustment, Level of consciousness Time with Patient: 15 minutes Premorbid Psychological Status: Premorbid Cognitive, Emotional and Behavioral Status: Tenuous. The patient has high school years of education and a solid work history prior to this injury. The patient has prior psychiatric difficulties, as described above. Substance abuse history includes ETOH dependence. Behavioral Reactions of Patient and Family/Support System: Tenuous. The patients family is experiencing ongoing issues of adjustment given the nature of the injury, and this aspect of recovery will require ongoing monitoring. Emotional/Behavioral Status of Patient and Family/Support System: Tenuous. Pertinent issues, if appropriate to this patients clinical care, are described in detail above. Maximizing Acute Care Outcome: It is recommended that the patient be monitored for emergent behavioral impulsivity as the medical condition evolves. This patients neuropathological challenges may limit rehabilitation potential going forward, and these challenges will require specialized therapeutic skills to maximize outcome. At this point in the recovery process, the patient does have cognitive capacity as the patient is able to understand a situation and its likely consequences, and she is able to manipulate information rationally. Cognitive capacity will be assessed throughout the recovery process. Anticipated Problems: Ongoing areas of concern will include behavioral impulsivity, lack of insight and judgment, which is expected to improve with time and treatment. Treatment Plan: This clinician will continue to follow with you throughout the course of this patients critical care treatment, and I will be available to meet with the patients family/support system to facilitate their understanding and the ongoing care of their family member. The goals of neuropsychological intervention shall be both educational and supportive to the family/support system as is deemed clinically appropriate. [place] COG Scale: Level VII Disinhibition Score: 14.00 Aggression Score: 14.00 Lability Score: 14.00 Agitated Behavior Total Score: 14 Impression: Unknown age woman s/p TBI 2T fall on 01/12/2018, and complicated by alcohol dependence, in controlled environment. Progress Note Narrative: PTD 11. The patient is relatively neurobehaviorally stable. Finishing Valium Taper with Keppra adjunct for ARLEY. NA+ still low. She is Rancho VII at this point, and will discharge home. - Diagnosis (1) Major neurocognitive disorder as late effect of traumatic brain injury with behavioral disturbance Status: Acute (2) Alcohol dependence in controlled environment Status: Acute
[2018-01-23] MEDS: levETIRAcetam 500 MG Tablet PO SCH (08:46)
[2018-01-23] MEDS: Folic Acid 1 MG Tablet PO SCH (08:47)
[2018-01-23] MEDS: Acetaminophen 325 MG Tablet PO PRN (08:48)
[2018-01-23] MEDS: amLODIPine 5 MG Tablet PO SCH (08:48)
[2018-01-23] MEDS: Senna/Docusate Sodium 8.6/50 MG Tablet PO SCH (08:48)
[2018-01-23] MEDS: Enoxaparin Inj 40 MG/0.4 ML Syringe SQ SCH (08:49)
[2018-01-23] MEDS: Mupirocin 2% Nasal Oint Topical Syringe EACH NARE SCH (08:50)
--- NOTE | 2018-01-23 11:11 | P.PNIM ---
Subjective Interval history: Patient is seen in room. No new complaints or concerns. She would like to be discharged today if possible. Nursing reports no adverse events. Physical Exam Vital signs: Last Vital Signs Temp 98.2 F 01/23/18 07:36 Pulse 60 01/23/18 07:36 Resp 16 01/23/18 07:36 BP 132/84 01/23/18 07:36 Pulse Ox 96 01/23/18 07:36 Intake & Output 01/21/18 01/22/18 01/23/18 01/24/18 06:59 06:59 06:59 06:59 Intake Total 480 / 480 1939 1700 / 1700 Output Total 600 / 600 Balance -120 / -120 1939 1700 / 1700 Weight 81.4 kg 78.8 kg 78.2 kg Narrative: Ms Rodriguez is alert, awake. Comfortable, in no acute distress. Speech is fluent. Cranial nerve examination: pupils to be equal, round and reactive to light. Extra-ocular movements are intact. Facial motor and sensory function are normal and symmetrical. Gross hearing appears intact. Sternocleidomastoid and trapezius muscles are symmetrical. Other cranial nerves are intact. Neck is soft and supple with a good range of motion without pain. Muscle strength is normal in all muscle groups of both upper and lower extremities. Sensory examination is intact to light touch and pin prick in both the upper and lower extremities. Deep tendon reflexes are symmetrical in both upper and lower extremities. There is a bilateral plantar flexion response. Cerebellar examination is unremarkable, without deficits. Lungs are clear Heart regular rhythm is regular rate Skin warm and dry Urinary Catheter Management Indwelling Urethral Catheter: Cath placed during this visit: yes, but has since been removed by the nurse Insertion date: 01/12/18 Insertion time: 23:30 Removal date: 01/13/18 Removal time: 12:00 Results Labs CBC & Chem 7: 01/19/18 02:39 01/23/18 05:28 Assessment and Plan Plan 57 years old female with a past medical history of hypertension, depression, and alcohol abuse who presented to the emergency room after falling while intoxicated. Bilateral frontal parenchymal contusions LEFT temporal parenchymal contusions RIGHT frontal SDH ,RIGHT parietal SDH ,LEFT temporal SDH Skull base fx extending to bilat sphenoid bones LEFT occipital bone fx LEFT Nasal fx (non-op) Management per Trauma Surgery Continue with Seizure prophylaxis with Keppra; being tapered Neuro check; no seizure activity to date PT/OT to treat and eval History of chronic alcohol abuse and dependence Alcohol cessation counselling was provided Continue with SUSANA protocol, nathalie pack Hyponatremia of beer potomania 2/2 from chronic alcohol abuse likely also exacerbated by SSRI. serum Osmolality-low Discontinue salt tablet and start Samsca 15 mg daily today 01/20/18 x 3 days (end date 01/22/18) Monitor Na ; stable but mildly low -will discharge with a sodium tablet and follow-up with PCP Hypertension Normotensive on: Propranolol 20mg q8h. Norvasc 5mg QD, Clonidine patch 0.2mg. Lisinopril 10mg BID. -DC due to cough Procardia XL 60mg QD -Noted to have mild bradycardia so will discontinue Procardia, clonidine and propanolol. Discussed with neuro and plan is to discharge on Norvasc Transaminitis Likely related to EtOH abuse Will order hepatitis panel -nonreactive Patient should follow-up with GI as outpatient DVT prophylaxis: Lovenox Discharge planning: Home today Progress Note: Quality VTE Deep Vein Thrombosis/Pulmonary Embolism Present on Admission: No
--- NOTE | 2018-01-23 11:17 | P.DS ---
DS: Providers Date of admission: 01/12/18 22:04 Primary care physician: UNKNOWN Consults: 01/13/18 06:09 Consult to Neuropsychology Routine Consulting Provider: Jose Araujo Preferred Post Anesthesia Care Unit Nurse:: Jose Araujo, PhD Reason for Consultation: TBI Spoke with:: dat araujo Date Notified:: 01/13/18 Time Notified:: 06:47 Ordering Provider: HOSEA Consult to Rehab Medicine Routine Consulting Provider: Debbie Darby Reason for Consultation: TBI Notified:: Service Spoke with:: ROBERT Date Notified:: 01/13/18 Time Notified:: 07:27 Ordering Provider: HOSEA 01/13/18 06:10 Consult to Oromaxillofacial Surgery Routine Consulting Provider: Salazar Oliveira Reason for Consultation: Nasal fx Notified:: Service Spoke with:: parmjit Date Notified:: 01/13/18 Time Notified:: 06:50 Ordering Provider: HOSEA 01/19/18 07:05 Consult to Neurosurgery Routine Consulting Provider: Nasim Fu Preferred Post Anesthesia Care Unit Nurse:: Nasim Fu Patient known to:: Nasim Fu Reason for Consultation: s/p trauma TBI Official consult Please add to dr. fu list - he has been seeing patient Notified:: Service Spoke with:: JIMMY Date Notified:: 01/19/18 Time Notified:: 07:08 Ordering Provider: LAMIN 01/19/18 13:27 Consult to Hospitalist Routine Consulting Provider: Lori Steinberg Reason for Consultation: s/p trauma Please assist with medical management Hyponatremia management - secondary to EtOH abuse? HTN (currently managed with 5 meds) Notified:: Service Spoke with:: JAYNA Date Notified:: 01/19/18 Time Notified:: 13:38 Comments:: Ordering Provider: LAMIN DS: Summary 7 years old female with a past medical history of hypertension, depression, and alcohol abuse who presented to the emergency room after falling while intoxicated. Found to have bilateral frontal parenchymal contusions, LEFT temporal parenchymal contusions, RIGHT frontal SDH ,RIGHT parietal SDH ,LEFT temporal SDH , Skull base fx extending to bilat sphenoid bones, LEFT occipital bone fx, LEFT Nasal fx (non-op). Management per Trauma Surgery -no intervention indicated. Seizure prophylaxis with Keppra; tapered and DC'd prior to discharge. No seizure activity while hospitalized. History of chronic alcohol abuse and dependence. Alcohol cessation counselling was provided. Withdraw managed via [facility] protocol, nathalie garland. Hyponatremia of beer potomania. 2/2 from chronic alcohol abuse likely also exacerbated by SSRI. serum Osmolality-low. Initially treated with Na tab then Samsca. Significant improvement in sodium noted but still mildly low. will discharge with a sodium tablet and follow-up with PCP Hypertension. Initially requiring significant medical management including propanolol, Norvasc, clonidine, lisinopril and Procardia. Lisinopril was stopped due to cough. Blood pressure did improve and patient was noted to become mildly bradycardiac so Procardia clonidine and propranolol were DC'd. Patient was discharged on Norvasc due to financial restrictions with instructions to follow-up with PCP. Transaminitis noted on labs. Unknown history of prior elevations. Asymptomatic. likely related to EtOH abuse. hepatitis panel ordered - nonreactive. Patient should follow-up with GI as outpatient. Time Spent with Patient Total time spent providing and/or coordinating discharge services: <30 min Quality: VTE Deep Vein Thrombosis/Pulmonary Embolism Present on Admission: No Exam Narrative Exam Narrative: GENERAL: Well-nourished, well-developed adult female in no obvious distress. SKIN: Warm and dry. HEAD: Atraumatic. Normocephalic. PERRLA. Ecchymosis around eyes bilaterally. CARDIOVASCULAR: Regular rate and rhythm. RESPIRATORY: No accessory muscle use. Clear to auscultation. Breath sounds equal bilaterally. GASTROINTESTINAL: Abdomen soft, non-tender, non-distended. Positive bowel sounds. MUSCULOSKELETAL: Extremities without clubbing, cyanosis, or edema. No obvious deformities. NEUROLOGICAL: Awake and alert. No obvious cranial nerve deficits. Motor grossly within normal limits. Normal speech. PSYCHIATRIC: Appropriate mood and affect; insight and judgment good. Results Labs on day of discharge: Labs from last 24 hours 18 18 18 05:28 05:28 05:28 Sodium 134 L Cancelled Potassium 4.0 Cancelled Chloride 100 Cancelled Carbon Dioxide 27.3 Cancelled Anion Gap 7 Cancelled BUN 10 Cancelled Creatinine 0.71 Cancelled Estimated GFR 85 L Cancelled Random Glucose 100 Cancelled Calcium 8.9 Cancelled Hepatitis A IgM Ab Nonreactive Hep Bs Antigen Nonreactive Hep B Core IgM Ab Nonreactive Hep C IgG Ab Nonreactive Impressions ITS Impressions Chest X-Ray 01/12/18 21:25 CONCLUSION: Consolidated left mid and lower lung which may represent a pulmonary contusion in the proper clinical setting. Possible minimally displaced fracture of the left eighth rib. CT of the chest is pending. Pelvis X-Ray 01/12/18 21:25 CONCLUSION: Intact pelvis. Abdomen/Pelvis CT 01/12/18 21:28 CONCLUSION: 1. No acute visceral organ injury demonstrated. 2. Nonspecific distention of the urinary bladder. 3. Enlarged and fatty liver. 4. Small hiatal hernia. Cervical Spine CT 01/12/18 21:28 CONCLUSION: 1. Nondisplaced fracture left occipital bone. 2. No acute fracture of the cervical spine. No significant canal stenosis. 8 mm nonspecific circumscribed lytic lesion at the C5 vertebral body. Chest CT 01/12/18 21:28 CONCLUSION: 1. Negative for acute traumatic injury to the thorax. Face CT 01/12/18 21:28 CONCLUSION: 1. Minimally displaced fracture of the left side of the nasal arch. No other facial fracture. 2. There is skull base fracturing involving the bilateral sphenoid bones and the left occiput. Cervical Spine MRI 01/13/18 00:00 CONCLUSION: 1. No acute cervical spine abnormality is identified. 2. Mild cervical kyphosis secondary to the degenerative disc disease at C4-C5. At this level there is posterior disc osteophyte complex and bilateral uncovertebral osteophyte mildly narrowing the neural foramina bilaterally. Cervical Spine X-Ray 01/13/18 00:00 CONCLUSION: Reversal of the cervical lordosis, presumably degenerative. Degenerative changes are again noted at C4/C5. No subluxation or abnormal motion demonstrated. Head CT 01/14/18 06:00 CONCLUSION: 1. Increasing edema surrounding bifrontal hemorrhagic contusions. 2. No significant enlargement of parenchymal hemorrhage or right subdural hematoma. 3. Slight decrease in subarachnoid blood. 4. Stable right occipital fracture. . Discharge Plan Discharge Disposition Patient Disposition: 01 Discharge Home Discharge Order Discharge Orders: Discharge Order (Routine); Ordered 01/23/18 Ordered By: Kiki Aldana ED Use Only Admit Order (Routine); Ordered 01/12/18 Ordered By: Carl Mazariegos Discharge Details Anticipated Discharge Date: 01/23/18 Physicians Team ED Provider: Lightburn,Carl E Rxs /Orders / Referrals /Forms Prescriptions: New amlodipine [Norvasc] 5 mg Tablet 5 mg PO DAILY 31 Days Qty: 31 RF: 0 sodium chloride 1 gram tablet 1,000 mg PO DAILY Qty: 7 RF: 0 multivitamin with folic acid [Thera] 400 mcg Tablet 1 tab PO DAILY RF: 0 thiamine HCl (vitamin B1) 100 mg Tablet 100 mg PO BID RF: 0 Continue clonazepam 1 mg Tablet RF: 0 escitalopram oxalate 20 mg Tablet BID RF: 0 Effexor XR DAILY RF: 0 Ambulatory Orders / Order Sets / DME: Sodium (Routine) Timeframe: 5 Days Location: Determined by Patient Ordered By: Kiki Aldana Referrals: Salazar Oliveira DDS [Physician] - See Instructions (f/u in 2 weeks) Jose Araujo, PhD [Physician] - See Instructions (f/u in 3-4 months) Nasim Fu MD [NEUROSURGERY] - See Instructions (f/u in 2 weeks) Clarke Mcknight, [Non-Staff] - See Instructions (F/U ETOH abuse and treament) UNKNOWN, [Primary Care Provider] - See Instructions (f/u in 1 week s/p TBI BP control ETOH Incidental finding8 mm nonspecific circumscribed lytic lesion at the C5 vertebral body.) Primary Care Provider [Outside] - See Instructions (Please follow-up with a primary care provider for monitoring of your sodium levels and for general primary care.) Discharge Instructions Patient Printed Instructions: Amlodipine (By mouth), Nasal Fracture (ED), Skull Fracture (ED), Subdural Hematoma (DC), Abuse of Alcohol (DC), Alcohol Withdrawal (DC), Fall Prevention (DC), Deep Vein Thrombosis Prevention (DC), Hyponatremia (GEN) Additional Instructions: NO DRIVING while taking narcotic pain meds NO DRIVING until cleared by Neurosurgeon F/U w/ PCP F/U and obtain sodium level in 7-10 days CALL TO SCHEDULE ALL FOLLOW UP APPOINTMENTS TAKE MEDICATIONS PRESCRIBED IN CASE OF EMERGENCY CALL 911 OR RETURN TO EMERGENCY ROOM Post Discharge Care Plan Care Plan Goals: Your Health Problems: OCCIPITAL FRACTURE, SKULL FRACTURE, NASAL FRACTURE, ICH, SUBDURAL HEMATOMA Goals to Promote Your Health: * To prevent worsening of your condition * To maintain your health at the optimal level Directions to Meet Your Goals: * Take your medications as prescribed * Follow your dietary instruction * Follow activity as directed * Keep your appointments as scheduled * Take your immunizations and boosters as scheduled * If your symptoms worsen call your PCP * If no PCP go to Urgent Care or Emergency Room Smoking is dangerous to your health. Avoid second hand smoke. You may reach the 24-hour crisis hotline for domestic abuse at . Status ED Status: Left Department
[2018-01-23 11:56] VITALS: BP 122/77; PULSE 63; RESP 18; TEMP 97.1
[2018-01-24] MEDS ORDERED: Sodium Chloride 1 GM Tablet PO SCH (09:00)
== END 2018-01-23 14:59 | disposition home or self-care (01) ==
LOC: NEPI 21:23 → NEDA 22:04 → EDBD 22:04 → NEDA 22:17 → N03 22:17 → N06 01-18 00:21
PROVIDERS: ADMIT Surgery; ATTEND Surgery
DX: Z82.0 Family history of epilepsy and other diseases of the nervous system; F02.81 Dementia in other diseases classified elsewhere, unspecified severity, with behavioral disturbance; Z87.891 Personal history of nicotine dependence; W18.30XA Fall on same level, unspecified, initial encounter; S06.6X9A Traumatic subarachnoid hemorrhage with loss of consciousness of unspecified duration, initial encounter; S02.119A Unspecified fracture of occiput, initial encounter for closed fracture; R05 Cough; E86.1 Hypovolemia; F10.229 Alcohol dependence with intoxication, unspecified; Y90.8 Blood alcohol level of 240 mg/100 ml or more; S02.2XXA Fracture of nasal bones, initial encounter for closed fracture; F01.51 Vascular dementia, unspecified severity, with behavioral disturbance; E87.1 Hypo-osmolality and hyponatremia; R47.81 Slurred speech; F10.239 Alcohol dependence with withdrawal, unspecified; I10 Essential (primary) hypertension; S06.5X9A Traumatic subdural hemorrhage with loss of consciousness of unspecified duration, initial encounter